=== PATIENT | female | born 1955 | race Caucasian/White ===

== ENCOUNTER 2020-02-19 10:11 | Outpatient (CLI) | payer OTHER, SELFPAY ==
--- NOTE | ~2020-02-19 | MM_ITS ---
EXAMINATION: MM screening alley BI w alfonso HISTORY: Screening mammogram TECHNIQUE: Craniocaudal and mediolateral oblique 3-D tomosynthesis images were obtained and synthetic 2-D images were generated. CAD analysis was submitted and interpreted. COMPARISON: 02/13/2019 bilateral digital screening mammogram 12/05/2017 diagnostic right digital mammogram 11/23/2017, 11/07/2016 bilateral digital screening mammogram examinations BREAST PARENCHYMAL COMPOSITION: There are scattered areas of fibroglandular density. FINDINGS: There is no evidence of suspicious mass, calcification, or architectural distortion to sugg est malignancy in either breast. There has been no suspicious interval change. IMPRESSION: 1. No mammographic evidence of malignancy. 2. Recommend routine screening mammography in one year. BI-RADS Category 1: Negative Reviewed, dictated and finalized at location A.
== END 2020-02-19 10:12 | disposition home or self-care (01) ==
PROVIDERS: PCP Obstetrics & Gynecology; Visit Provider Obstetrics & Gynecology
DX: Z12.31 Encounter for screening mammogram for malignant neoplasm of breast (principal)
CPT/HCPCS: 77063; 77067

== ENCOUNTER 2021-06-23 10:02 | Outpatient (CLI) | payer OTHER, SELFPAY ==
--- NOTE | ~2021-06-23 | MM_ITS ---
EXAMINATION: MM screening alley BI w alfonso HISTORY: Screening mammogram TECHNIQUE: Craniocaudal and mediolateral oblique 3-D tomosynthesis images were obtained and synthetic 2-D images were generated. CAD analysis was submitted and interpreted. COMPARISON: 02/19/2020, 02/13/2019 bilateral digital screening mammogram examinations. BREAST PARENCHYMAL COMPOSITION: There are scattered areas of fibroglandular density. FINDINGS: Asymmetry is noted in the posterior upper and posterior lower left breast on MLO view and in the post erior outer left breast on craniocaudal view. Left diagnostic mammogram and left breast ultrasound ex amination are recommended. No suspicious mass or architectural distortion, malignant calcification, skin thickening or retractio n of the breasts is noted otherwise. No other suspicious change. IMPRESSION: 1. Left mammographic asymmetries 2. Diagnostic left mammogram and left breast ultrasound examination are recommended BI-RADS Category 0: Incomplete: Needs additional imaging evaluation. Reviewed, dictated and finalized at location A. IMPRESSION: 1. Left mammographic asymmetries 2. Diagnostic left mammogram and left breast ultrasound examination are recomme nded BI-RADS Category 0: Incomplete: Needs additional imaging evaluation.
== END 2021-06-23 10:03 | disposition home or self-care (01) ==
LOC: ANHIMG 10:04
PROVIDERS: PCP Family Medicine; Visit Provider Obstetrics & Gynecology
DX: Z12.31 Encounter for screening mammogram for malignant neoplasm of breast (principal); R92.8 Other abnormal and inconclusive findings on diagnostic imaging of breast
CPT/HCPCS: 77063; 77067

== ENCOUNTER 2021-08-24 02:23 | Day surgery (SDC) | payer OTHER, SELFPAY ==
[2021-08-13 11:15] VITALS: BMI 30.6
[2021-08-24 07:44] VITALS: BP 146/86; PULSE 89; RESP 17; TEMP 36.9; O2SAT 97; BMI 30.9
[2021-08-24] MEDS: LACTATED RINGERS 1,000 ML 150 ML IV CONT (07:46)
--- NOTE | 2021-08-24 08:26 | P.CONGI_ITS ---
Assessment and Plan Assessment and plan (1) Encounter for screening colonoscopy: Code(s): Z12.11 - Encounter for screening for malignant neoplasm of colon Status: Acute Assessment and Plan: Patient presents for screening colonoscopy. Further recommendations will be given after endoscopy. It has been 10 years since last screening exam was unremarkable. GI Consult Note Consult date/time: 08/24/21 08:26 HPI: Essence Sommers is a 66 year old female Presents for screening colonosc opy. Patient reports that her current weight appetite bowel movements are normal. She denies abdominal pain. She has had no bleeding. Family history is noncontributory. Review of Systems Review of Systems: All systems reviewed & are unremarkable except as noted in HPI and below PMFSH Past Medical History Medical History Dyslipidemia Essential (primary) hypertension GERD without esophagitis Psoriasis Rosacea Vitamin D deficiency Surgical History Surgical History History of tubal ligation (~1994) [place] teeth extracted (~1981) Family History Family History Other Family history of lung cancer Social History Social History Smoking status: Never smoker Second hand tobacco smoke exposure: No Smoking end date: 11/27/84 Alcohol intake: current Alcohol use details: consumes 3 beers or glasses of wine occasionally Substance use: never Substance use type: does not use Living arrangements: with family Gender identity (if verbalized by the patient): Female Spiritual care concerns: No Meds Home Medications and Allergies Home Medications Medication Instructions Recorded Confirmed Type cholecalciferol (vitamin D3) 50 50 mcg PO DAILY 06/02/20 08/24/21 History mcg (2,000 unit) capsule xvurdtrrzarr-msjctwib-xjndcos-folic 1 tablet PO DAILY 06/02/20 08/24/21 History acid 400 mcg-vit K1 20 mcg tablet omeprazole magnesium 20 mg 20 mg PO DAILY 06/02/20 08/24/21 History tablet,delayed release hydrochlorothiazide 25 mg tablet 25 mg PO DAILY #90 tablet 06/10/21 08/24/21 Rx simvastatin 40 mg tablet 40 mg PO QHS #90 tablet 06/10/21 08/24/21 Rx Allergies Allergy/AdvReac Type Severity Reaction Status Date / Time No Known Allergies Verified 08/24/21 07:43 Vital Signs Vital Signs - 24 hr 08/24/21 07:44 Temperature 98.5 F Pulse Rate 89 Respiratory Rate 17 Blood Pressure 146/86 H Pulse Oximetry 97 Exam Narrative: Physical exam reveals patient to be alert. Vital signs stable. HEENT exam is unremarkable. Patient is anicteric. Lungs are clear to auscultation and percussion. Heart is without murmur or extra sounds. Abdominal exam bowel sounds are present soft nontender with no organomegaly. Digital external rectal exam is normal.
--- NOTE | 2021-08-24 08:38 | P.PNAN_ITS ---
Anes - Initial Pre Proc Eval Procedure: Operation Date: 08/24/21 09:00 Proposed Procedures p Screening Colonoscopy - Jefry Pro MD Date/Time: 08/24/21 08:38 Surgeon: Jefry Pro MD Pre Op Diagnosis: neoplasm screening Patient Data Age: 66 Gender: F Height: 1.68 m Weight: 86.8 kg Last Vital Signs Temp 98.5 F 08/24/21 07:44 Pulse 89 08/24/21 07:44 Resp 17 08/24/21 07:44 BP 146/86 H 08/24/21 07:44 Pulse Ox 97 08/24/21 07:44 Allergies Allergy/AdvReac Type Severity Reaction Status Date / Time No Known Allergies Verified 08/24/21 07:43 Home Medications Medication Instructions Recorded Confirmed Type cholecalciferol (vitamin D3) 50 50 mcg PO DAILY 06/02/20 08/24/21 History mcg (2,000 unit) capsule ximdcmiloxjg-noambeon-yrbldne-folic 1 tablet PO DAILY 06/02/20 08/24/21 History acid 400 mcg-vit K1 20 mcg tablet omeprazole magnesium 20 mg 20 mg PO DAILY 06/02/20 08/24/21 History tablet,delayed release hydrochlorothiazide 25 mg tablet 25 mg PO DAILY #90 tablet 06/10/21 08/24/21 Rx simvastatin 40 mg tablet 40 mg PO QHS #90 tablet 06/10/21 08/24/21 Rx Patient hx anesthesia problems: none Family hx anesthesia problems: none Results Review: All pre-operative results and documents have been reviewed as part of the pre-operative evaluation. [facility] Past Medical History Medical History Dyslipidemia Essential (primary) hypertension GERD without esophagitis Psoriasis Rosacea Vitamin D deficiency Surgical History Surgical History History of tubal ligation (~1994) [place] teeth extracted (~1981) Family History Family History Other Family history of lung cancer Social History Social History Smoking status: Never smoker Second hand tobacco smoke exposure: No Smoking end date: 11/27/84 Alcohol intake: current Alcohol use details: consumes 3 beers or glasses of wine occasionally Substance use: never Substance use type: does not use Living arrangements: with family Gender identity (if verbalized by the patient): Female Spiritual care concerns: No Anes - Eval Final PreProcedure Day of Procedure 08/24/21 08:38 Patient weight: obese Heart: regular rate and rhythm Lungs: clear to auscultation Airway: Mallampati scale class II Neurological: alert and oriented Last oral intake: >/= 8 hours ASA classification: III Emergent: no Anesthetic plan: proceed Anesthesia type and monitoring: general GIVS and standard monitoring Results Review: All pre-operative results and documents have been reviewed as part of the pre-operative evaluation. Informed Consent: The patient's anesthetic plan and its attendant risks and benefits were discussed with the patient/family/POA. Questions were solicited and answers provided to the satisfaction of the patient/family/POA.
[2021-08-24 09:32] VITALS: BP 121/98; PULSE 68; RESP 16; O2SAT 98
[2021-08-24 09:42] VITALS: BP 113/66; PULSE 70; RESP 16; O2SAT 99
[2021-08-24 09:52] VITALS: BP 117/67; PULSE 71; RESP 18; O2SAT 98
== END 2021-08-24 10:03 | disposition home or self-care (01) ==
PROVIDERS: PCP Family Medicine; Visit Provider Internal Medicine Gastroenterology
PROC: 0DJD8ZZ Inspection of Lower Intestinal Tract, Via Natural or Artificial Opening Endoscopic (ICD-10-PCS; CPT 45378; principal; 2021-08-24 09:00)
DX: Z12.11 Encounter for screening for malignant neoplasm of colon (principal); K64.8 Other hemorrhoids; E78.5 Hyperlipidemia, unspecified; I10 Essential (primary) hypertension; K21.9 Gastro-esophageal reflux disease without esophagitis; L40.9 Psoriasis, unspecified; L71.9 Rosacea, unspecified; E55.9 Vitamin D deficiency, unspecified; E66.9 Obesity, unspecified; Z68.30 Body mass index [BMI] 30.0-30.9, adult
CPT/HCPCS: 45378; J2001; J2704; J7120

== ENCOUNTER 2021-08-30 12:49 | Outpatient (CLI) | payer OTHER, SELFPAY ==
--- NOTE | ~2021-08-30 | MMUS_ITS ---
EXAMINATION: MM diagnostic alley LT w alfonso, US breast LT limited HISTORY: Left breast asymmetries on screening mammogram TECHNIQUE: Additional 3-D tomosynthesis images of the left breast were performed and synthetic 2-D im ages were generated. CAD analysis was submitted and interpreted. High resolution limited left breast ultrasound was performed. COMPARISON: 06/23/2021, 02/19/2020, 02/13/2019 BREAST PARENCHYMAL COMPOSITION: There are scattered areas of fibroglandular density. FINDINGS: MAMMOGRAPHIC FINDINGS: There is a return to baseline fibroglandular appearance with spot compression in the left breast in t he area questioned on screening mammogram. In addition, there appear to be benign lymph nodes in the far upper outer quadrant breast. ULTRASOUND: There is a 6 mm x 4 mm oval, circumscribed, parallel, isoechoic mass with no internal vascularity at the 2:00 location 4 cm from the nipple. IMPRESSION: 1. Probably benign left breast mass. 2. Recommend 6 month follow-up left diagnostic mammogram and ultrasound. BI-RADS category 3, probably benign findings. Reviewed, dictated and finalized at location A. IMPRESSION: 1. Probably benign left breast mass. 2. Recommend 6 month follow-up left diagnostic mammogram and ultrasound. BI-RADS category 3, probably benign findings.
== END 2021-08-30 12:50 | disposition home or self-care (01) ==
LOC: ANHIMG 12:51
PROVIDERS: PCP Family Medicine; Visit Provider Obstetrics & Gynecology
DX: R92.8 Other abnormal and inconclusive findings on diagnostic imaging of breast (principal)
CPT/HCPCS: 76642; 77061; 77065; G0279

== ENCOUNTER 2022-03-22 11:58 | Outpatient (CLI) | payer OTHER, SELFPAY ==
--- NOTE | ~2022-03-22 | MMUS_ITS ---
EXAMINATION: MM diagnostic alley LT w alfonso, US breast LT limited HISTORY: Follow-up left breast mass TECHNIQUE: Additional 3-D tomosynthesis images of the left breast were performed and synthetic 2-D im ages were generated. CAD analysis was submitted and interpreted. High resolution Limited left breast ultrasound was performed. COMPARISON: Comparison to multiple prior studies sequentially, with oldest reviewed study dated 10/28. BREAST PARENCHYMAL COMPOSITION: Breast composed of scattered areas of fibroglandular density FINDINGS: MAMMOGRAPHIC FINDINGS: The left breast is stable without evidence for new mass, calcification or architectural distortion to suggest malignancy. ULTRASOUND: Limited left breast ultrasound: At 2:00, 4 cm from the nipple, there is an oval hypoechoic mass witho ut internal vascularity or posterior shadowing measuring 6 mm greatest dimension. IMPRESSION: 1. Stable likely benign left breast mass at 2:00, 4 cm from the nipple. 2. Recommend 6 month follow-up Limited left breast ultrasound BI-RADS category 3, probably benign findings. Reviewed, dictated and finalized at location A. IMPRESSION: 1. Stable likely benign left breast mass at 2:00, 4 cm from the nipple. 2. Recommend 6 month follow-up Limited left breast ultrasound BI-RADS category 3, probably benign findings.
== END 2022-03-22 11:59 | disposition home or self-care (01) ==
PROVIDERS: PCP Family Medicine; Visit Provider Obstetrics & Gynecology
DX: R92.8 Other abnormal and inconclusive findings on diagnostic imaging of breast (principal)
CPT/HCPCS: 76642; 77061; 77065; G0279

== ENCOUNTER 2022-06-14 11:20 | Outpatient (CLI) | payer MEDICARE, SELFPAY ==
[2022-06-14 18:36] LABS: Basophils Percent Auto 0.3 % (0.2-1.2); Eosinophils Percent Auto 0.2 % (0-4.4); Hematocrit 43.6 % (37.0-47.0); Hemoglobin 13.7 g/dL (12.0-15.0); Immature Granulocyte Absolute 0.11 K/mm3 (0.00-0.031); Immature Granulocyte Percent A 0.7 % (0-0.5); Lymphocytes Absolute Auto 2.79 K/mm3 (0.9-3.2); Mean Corpuscular HGB Conc 31.4 g/dl (32-36); Mean Corpuscular Hemoglobin 29.4 pg (26-34); Mean Corpuscular Volume 93.6 fl (80-100); Mean Platelet Volume 10.6 fl (7.4-10.4); Monocytes Absolute Auto 0.7 K/mm3 (0.1-0.6); Monocytes Percent Auto 4.6 % (2.6-8.5); Neutrophils Absolute Auto 11.1 K/mm3 (1.3-6.7); Neutrophils Percent Auto 75.2 % (45.5-73.1); Platelet Count Result 436 k/mm3 (150-375); Red Blood Count 4.66 M/mm3 (4.2-5.4); Red Cell Distribution Width 13.2 % (11.5-14.5); White Blood Count 14.7 K/mm3 (4.5-10.0)
[2022-06-14 18:42] LABS: Alanine Aminotransferase 28 U/L (6-35); Albumin Level 4.7 g/dL (3.5-5.1); Alkaline Phosphatase 67 U/L (38-126); Anion Gap 9 mmol/L (8-16); Aspartate Amino Transferase 30 U/L (14-36); Bilirubin,Total 0.9 mg/dL (0.2-1.3); Blood Urea Nitrogen 27 mg/dL (7-17); Calcium 9.8 mg/dL (8.4-10.2); Carbon Dioxide 31 mmol/L (22-30); Chloride 97 mmol/L (98-107); Cholesterol 196 mg/dL (0-200); Estimated Glomerular Filt Rate > 60; Glucose 97 mg/dL (65-110); HDL Direct 55 mg/dL; Potassium 3.1 mmol/L (3.4-5.0); Sodium 137 mmol/L (137-145); Triglycerides 200 mg/dL (<150)
[2022-06-14 18:53] LABS: LDL Cholesterol Direct 75 mg/dL
[2022-06-14 20:17] LABS: Vitamin D 25 Hydroxy 48.9 ng/mL
== END 2022-06-14 11:21 | disposition home or self-care (01) ==
LOC: ANHGOSHLAB 11:27
PROVIDERS: PCP Family Medicine; Visit Provider Family Medicine
DX: E78.5 Hyperlipidemia, unspecified (principal); Z13.29 Encounter for screening for other suspected endocrine disorder; E55.9 Vitamin D deficiency, unspecified; I10 Essential (primary) hypertension
CPT/HCPCS: 36415; 80053; 80061; 82306; 84443; 85025

== ENCOUNTER 2022-07-06 08:25 | Outpatient (CLI) | payer MEDICARE, SELFPAY ==
[2022-07-06 19:20] LABS: Basophils Absolute Auto 0.1 K/mm3 (0.0-0.1); Basophils Percent Auto 0.6 % (0.2-1.2); Eosinophils Absolute Auto 0.1 K/mm3 (0-0.3); Eosinophils Percent Auto 1.3 % (0-4.4); Hematocrit 40.7 % (37.0-47.0); Hemoglobin 12.9 g/dL (12.0-15.0); Immature Granulocyte Absolute 0.02 K/mm3 (0.00-0.031); Immature Granulocyte Percent A 0.2 % (0-0.5); Lymphocytes Absolute Auto 3.55 K/mm3 (0.9-3.2); Lymphocytes Percent Auto 40.4 % (18.3-44.2); Mean Corpuscular HGB Conc 31.7 g/dl (32-36); Mean Corpuscular Hemoglobin 29.8 pg (26-34); Mean Platelet Volume 10.6 fl (7.4-10.4); Monocytes Absolute Auto 0.4 K/mm3 (0.1-0.6); Monocytes Percent Auto 4.9 % (2.6-8.5); Neutrophils Absolute Auto 4.6 K/mm3 (1.3-6.7); Neutrophils Percent Auto 52.6 % (45.5-73.1); Platelet Count Result 342 k/mm3 (150-375); Red Blood Count 4.33 M/mm3 (4.2-5.4); Red Cell Distribution Width 13.1 % (11.5-14.5); White Blood Count 8.8 K/mm3 (4.5-10.0)
[2022-07-06 20:18] LABS: Alanine Aminotransferase 29 U/L (6-35); Albumin Level 4.3 g/dL (3.5-5.1); Alkaline Phosphatase 57 U/L (38-126); Anion Gap 7 mmol/L (8-16); Aspartate Amino Transferase 30 U/L (14-36); Bilirubin,Total 0.7 mg/dL (0.2-1.3); Blood Urea Nitrogen 24 mg/dL (7-17); Calcium 9.4 mg/dL (8.4-10.2); Carbon Dioxide 33 mmol/L (22-30); Chloride 96 mmol/L (98-107); Estimated Glomerular Filt Rate > 60; Glucose 84 mg/dL (65-110); Potassium 3.4 mmol/L (3.4-5.0); Sodium 136 mmol/L (137-145)
== END 2022-07-06 08:26 | disposition home or self-care (01) ==
PROVIDERS: PCP Family Medicine; Visit Provider Family Medicine
DX: E87.6 Hypokalemia (principal); D72.829 Elevated white blood cell count, unspecified; I10 Essential (primary) hypertension
CPT/HCPCS: 36415; 80053; 85025

== ENCOUNTER 2022-12-14 11:02 | Outpatient (CLI) | payer MEDICARE, SELFPAY ==
[2022-12-14 20:12] LABS: Alanine Aminotransferase 25 U/L (6-35); Albumin Level 4.3 g/dL (3.5-5.1); Alkaline Phosphatase 67 U/L (38-126); Anion Gap 7 mmol/L (8-16); Aspartate Amino Transferase 28 U/L (14-36); Bilirubin,Total 0.7 mg/dL (0.2-1.3); Blood Urea Nitrogen 33 mg/dL (7-17); Calcium 9.2 mg/dL (8.4-10.2); Carbon Dioxide 31 mmol/L (22-30); Chloride 103 mmol/L (98-107); Estimated Glomerular Filt Rate > 60; Glucose 96 mg/dL (65-110); Potassium 4.2 mmol/L (3.4-5.0); Sodium 141 mmol/L (137-145)
== END 2022-12-14 11:03 | disposition home or self-care (01) ==
LOC: ANHGOSHLAB 11:04
PROVIDERS: PCP Family Medicine; Visit Provider Family Medicine
DX: E87.6 Hypokalemia (principal); I10 Essential (primary) hypertension; N63.20 Unspecified lump in the left breast, unspecified quadrant
CPT/HCPCS: 36415; 80053

== ENCOUNTER 2022-12-30 10:13 | Outpatient (CLI) | payer MEDICARE, SELFPAY ==
--- NOTE | ~2022-12-30 | MM_ITS ---
EXAMINATION: MM screening alley BI w alfonso HISTORY: Screening TECHNIQUE: Craniocaudal and mediolateral oblique 3-D tomosynthesis images were obtained and synthetic 2-D images were generated. CAD analysis was submitted and interpreted. COMPARISON: Comparison to multiple prior studies sequentially, with oldest reviewed study dated 07/2018. BREAST PARENCHYMAL COMPOSITION: There are scattered areas of fibroglandular density. FINDINGS: There is no evidence of suspicious mass, calcification, or architectural distortion to sugg est malignancy in either breast. There has been no suspicious interval change. IMPRESSION: 1. No mammographic evidence of malignancy. 2. Recommend routine screening mammography in one year. BI-RADS Category 1: Negative Reviewed, dictated and finalized at location A. 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
== END 2022-12-30 10:14 | disposition home or self-care (01) ==
LOC: ANHIMG 10:17
PROVIDERS: PCP Family Medicine; Visit Provider Obstetrics & Gynecology
DX: Z12.31 Encounter for screening mammogram for malignant neoplasm of breast (principal)
CPT/HCPCS: 77063; 77067

== ENCOUNTER 2023-05-24 12:49 | Outpatient (CLI) | payer MEDICARE, SELFPAY ==
--- NOTE | ~2023-05-24 | XR_ITS ---
Left Knee Technique: AP, lateral, and sunrise views were obtained. Clinical History: Pain Findings: No fracture or dislocation is seen. Osseous alignment is anatomic. Mild tricompartmental de generative spurring noted. Small to moderate joint effusion is seen. Impression: Mild tricompartmental osteoarthritis. Small to moderate joint effusion. Reviewed, dictated and finalized at location . Impression: Mild tricompartmental osteoarthritis. Small to moderate joint effusion.
--- NOTE | ~2023-05-24 | XR_ITS ---
Right Knee Technique: AP, lateral, and sunrise views were obtained. Clinical History: Pain Findings: No fracture or dislocation is seen. There is moderate medial compartment degenerative narro wing with spurring and medial compartment narrowing. There is mild degenerative change of the lateral compartment. There is mild to moderate degenerative change of the patellofemoral compartment.. Soft tissues are unremarkable. No joint effusion is seen. Impression: Tricompartment osteoarthritis, as detailed above, worst in the medial compartment. Reviewed, dictated and finalized at location M. Impression: Tricompartment osteoarthritis, as detailed above, worst in the medial compartme nt.
== END 2023-05-24 12:50 | disposition home or self-care (01) ==
LOC: CHSIMG 12:55
PROVIDERS: PCP Family Medicine
DX: M25.569 Pain in unspecified knee (principal); M17.0 Bilateral primary osteoarthritis of knee; M25.462 Effusion, left knee
CPT/HCPCS: 73564

== ENCOUNTER 2023-06-15 09:50 | Outpatient (CLI) | payer MEDICARE, SELFPAY ==
[2023-06-15 13:24] LABS: Basophils Absolute Auto 0.1 K/mm3 (0.0-0.1); Basophils Percent Auto 0.7 % (0.2-1.2); Eosinophils Absolute Auto 0.1 K/mm3 (0-0.3); Eosinophils Percent Auto 1.3 % (0-4.4); Hematocrit 40.6 % (37.0-47.0); Hemoglobin 12.8 g/dL (12.0-15.0); Immature Granulocyte Absolute 0.02 K/mm3 (0.00-0.031); Immature Granulocyte Percent A 0.3 % (0-0.5); Lymphocytes Absolute Auto 2.57 K/mm3 (0.9-3.2); Lymphocytes Percent Auto 37.7 % (18.3-44.2); Mean Corpuscular HGB Conc 31.5 g/dl (32-36); Mean Corpuscular Hemoglobin 29.2 pg (26-34); Mean Corpuscular Volume 92.5 fl (80-100); Mean Platelet Volume 11.1 fl (7.4-10.4); Monocytes Absolute Auto 0.4 K/mm3 (0.1-0.6); Monocytes Percent Auto 6.2 % (2.6-8.5); Neutrophils Absolute Auto 3.7 K/mm3 (1.3-6.7); Neutrophils Percent Auto 53.8 % (45.5-73.1); Platelet Count Result 346 k/mm3 (150-375); Red Blood Count 4.39 M/mm3 (4.2-5.4); Red Cell Distribution Width 13.3 % (11.5-14.5); White Blood Count 6.8 K/mm3 (4.5-10.0)
[2023-06-15 14:18] LABS: Alanine Aminotransferase 27 U/L (6-35); Albumin Level 4.5 g/dL (3.5-5.1); Alkaline Phosphatase 62 U/L (38-126); Anion Gap 6 mmol/L (8-16); Aspartate Amino Transferase 38 U/L (14-36); Bilirubin,Total 0.8 mg/dL (0.2-1.3); Blood Urea Nitrogen 16 mg/dL (7-17); Calcium 9.3 mg/dL (8.4-10.2); Carbon Dioxide 35 mmol/L (22-30); Chloride 98 mmol/L (98-107); Cholesterol 145 mg/dL (0-200); Estimated Glomerular Filt Rate > 60; Glucose 107 mg/dL (65-110); HDL Direct 42 mg/dL; Potassium 3.8 mmol/L (3.4-5.0); Sodium 139 mmol/L (137-145); Triglycerides 202 mg/dL (<150)
[2023-06-15 14:41] LABS: LDL Cholesterol Direct 52 mg/dL
[2023-06-15 17:54] LABS: Free T4 Free Thyroxine Reflex 1.09 ng/dL (0.78-2.19)
[2023-06-15 19:55] LABS: Total Triiodothyronine (T3) 1.62 NG/ML (0.97-1.69)
== END 2023-06-15 09:51 | disposition home or self-care (01) ==
LOC: ANHGOSHLAB 09:52
PROVIDERS: PCP Family Medicine; Visit Provider Family Medicine
DX: E78.5 Hyperlipidemia, unspecified (principal); I10 Essential (primary) hypertension; E55.9 Vitamin D deficiency, unspecified; E53.8 Deficiency of other specified B group vitamins
CPT/HCPCS: 36415; 80053; 80061; 82306; 82607; 84439; 84443; 84480; 85025

== ENCOUNTER 2023-08-29 13:58 | Outpatient (CLI) | payer MEDICARE, SELFPAY ==
--- NOTE | ~2023-08-29 | DEXA_ITS ---
Bone Density Report Name: MAXIMILIANO MADRID Age: 68 Sex: Female Ethnicity: White Date of : 1955 Indication: postmenopausal; screening for osteoporosis; height loss; Referring Provider: EUGENE VILLAVICENCIO Study: Bone densitometry was performed. Exam Date: August 29, 2023 Accession number: [id number] Bone Density: Region BMD T-score Z-score Classification AP Spine(L1-L4) 1.044 0.0 1.8 Normal Femoral Neck (Left) 0.757 -0.8 0.8 Normal Total Hip (Left) 0.864 -0.6 0.7 Normal Femoral Neck (Right) 0.800 -0.4 1.1 Normal Total Hip (Right) 0.890 -0.4 0.9 Normal Total Hip Mean 0.877 -0.5 0.8 Normal World Health Organization criteria for BMD impression classify patients as: Normal (T-score at or above -1.0), Osteopenia (T-score between -1.0 and -2.5), or Osteoporosis (T-score at or below -2.5). 10-year Fracture Risk: FRAX not reported because: All T-scores for Spine Total, Hip Total, Femoral Neck at or above -1.0 Clinical Information Provided by Patient: Has used the following medications: Vitamin D Patient maximum height was 67 Menopause Age: 52 No regular weight bearing exercise Does not regularly consume dairy products Drinks caffeinated beverages Onset of menses at age 16 Number of children 2 Impression: The patient has normal bone mass. Discussion: BONE DENSITY IS ABOVE THE MINIMUM DESIRABLE LEVEL AT ALL SKELETAL SITES TESTED. This patient?s bone mineral density is above the minimum desirable level (T-score -1.0 or better) at all sites measured. The patient should follow a healthful lifestyle (good nutrition with adequate calcium and vitamin D, and appropriate weight-bearing exercise). Follow-Up: Consider repeating this study in 5 years or sooner if there is some new clinical indication. Reported by: [facility] on 08/29/2023 2:22:00 PM. Reviewed, dictated and finalized at location ALoretta ORTIZ
== END 2023-08-29 13:59 | disposition home or self-care (01) ==
PROVIDERS: PCP Family Medicine; Visit Provider Family Medicine
DX: Z78.0 Asymptomatic menopausal state (principal)
CPT/HCPCS: 77080

== ENCOUNTER 2023-12-21 09:20 | Outpatient (CLI) | payer MEDICARE, SELFPAY ==
[2023-12-21 14:09] LABS: Alanine Aminotransferase 25 U/L (6-35); Albumin Level 4.4 g/dL (3.5-5.1); Alkaline Phosphatase 67 U/L (38-126); Anion Gap 8 mmol/L (8-16); Aspartate Amino Transferase 40 U/L (14-36); Blood Urea Nitrogen 21 mg/dL (7-17); Calcium 9.3 mg/dL (8.4-10.2); Carbon Dioxide 33 mmol/L (22-30); Chloride 100 mmol/L (98-107); Estimated Glomerular Filt Rate > 60; Glucose 94 mg/dL (65-110); Potassium 3.6 mmol/L (3.4-5.0); Sodium 141 mmol/L (137-145)
[2023-12-21 18:58] LABS: Total Triiodothyronine (T3) 1.37 NG/ML (0.97-1.69)
== END 2023-12-21 09:21 | disposition home or self-care (01) ==
LOC: ANHGOSHLAB 09:22
PROVIDERS: PCP Family Medicine; Visit Provider Family Medicine
DX: R79.89 Other specified abnormal findings of blood chemistry (principal); I10 Essential (primary) hypertension
CPT/HCPCS: 36415; 80053; 84439; 84443; 84480

== ENCOUNTER 2024-02-20 07:58 | Outpatient (CLI) | payer MEDICARE, SELFPAY ==
--- NOTE | ~2024-02-20 | MM_ITS ---
EXAMINATION: MM screening alley BI w alfonso HISTORY: Screening mammogram TECHNIQUE: Craniocaudal and mediolateral oblique 3-D tomosynthesis images were obtained and synthetic 2-D images were generated. CAD analysis was submitted and interpreted. COMPARISON: December 30, 2022 bilateral screening mammogram March 22, 2022 diagnostic left mammogram and limited left breast ultrasound August 30, 2021 diagnostic left mammogram and limited left breast ultrasound June 23, 2021 bilateral screening mammogram BREAST PARENCHYMAL COMPOSITION: There are scattered areas of fibroglandular density. FINDINGS: There is no evidence of suspicious mass, calcification, or architectural distortion to sugg est malignancy in either breast. There has been no suspicious interval change. IMPRESSION: 1. No mammographic evidence of malignancy. 2. Recommend routine screening mammography in one year. BI-RADS Category 1: Negative Reviewed, dictated and finalized at location A.
== END 2024-02-20 07:59 | disposition home or self-care (01) ==
PROVIDERS: PCP Family Medicine; Visit Provider Obstetrics & Gynecology
DX: Z12.31 Encounter for screening mammogram for malignant neoplasm of breast (principal)
CPT/HCPCS: 77063; 77067

== ENCOUNTER 2024-03-13 11:18 | Outpatient (CLI) | payer MEDICARE, SELFPAY | END 2024-03-13 11:19 | disposition home or self-care (01) | LOC: ANHGOSHLAB 11:21 | PROVIDERS: PCP Family Medicine; Visit Provider Family Medicine | DX: N39.0 Urinary tract infection, site not specified (principal) | CPT/HCPCS: 87086; 87088 ==

== ENCOUNTER 2024-08-27 09:23 | Outpatient (CLI) | payer MEDICARE, SELFPAY ==
[2024-08-27 14:10] LABS: Basophils Absolute Auto 0.1 K/mm3 (0.0-0.1); Basophils Percent Auto 0.9 % (0.2-1.2); Eosinophils Absolute Auto 0.1 K/mm3 (0-0.3); Eosinophils Percent Auto 2.3 % (0-4.4); Hematocrit 41.3 % (37.0-47.0); Hemoglobin 13.2 g/dL (12.0-15.0); Immature Granulocyte Absolute 0.02 K/mm3 (0.00-0.031); Immature Granulocyte Percent A 0.3 % (0-0.5); Lymphocytes Percent Auto 34.8 % (18.3-44.2); Mean Corpuscular Hemoglobin 30.2 pg (26-34); Mean Corpuscular Volume 94.5 fl (80-100); Mean Platelet Volume 12.4 fl (7.4-10.4); Monocytes Absolute Auto 0.3 K/mm3 (0.1-0.6); Monocytes Percent Auto 5.4 % (2.6-8.5); Neutrophils Absolute Auto 3.2 K/mm3 (1.3-6.7); Neutrophils Percent Auto 56.3 % (45.5-73.1); Platelet Count Result 351 k/mm3 (150-375); Red Blood Count 4.37 M/mm3 (4.2-5.4); Red Cell Distribution Width 13.4 % (11.5-14.5); White Blood Count 5.7 K/mm3 (4.5-10.0)
[2024-08-27 14:35] LABS: LDL Cholesterol Direct 54 mg/dL
[2024-08-27 14:50] LABS: Vitamin D 25 Hydroxy 43.4 ng/mL
[2024-08-27 15:04] LABS: Alanine Aminotransferase 24 U/L (6-35); Albumin Level 4.5 g/dL (3.5-5.1); Alkaline Phosphatase 60 U/L (38-126); Anion Gap 9 mmol/L (4-12); Aspartate Amino Transferase 43 U/L (14-36); Bilirubin,Total 0.8 mg/dL (0.2-1.3); Blood Urea Nitrogen 17 mg/dL (7-17); Calcium 9.4 mg/dL (8.4-10.2); Carbon Dioxide 31 mmol/L (22-30); Chloride 99 mmol/L (98-107); Cholesterol 158 mg/dL (0-200); Estimated Glomerular Filt Rate > 60; Glucose 102 mg/dL (65-110); HDL Direct 47 mg/dL; Potassium 4.2 mmol/L (3.4-5.0); Sodium 139 mmol/L (137-145); Triglycerides 226 mg/dL (<150)
[2024-08-27 15:39] LABS: Hemoglobin A1C 5.4 % (<5.7)
== END 2024-08-27 09:24 | disposition home or self-care (01) ==
PROVIDERS: PCP Family Medicine; Visit Provider Family Medicine
DX: E78.5 Hyperlipidemia, unspecified (principal); E53.8 Deficiency of other specified B group vitamins; E55.9 Vitamin D deficiency, unspecified; I10 Essential (primary) hypertension; R73.9 Hyperglycemia, unspecified
CPT/HCPCS: 36415; 80053; 80061; 82306; 82607; 83036; 84439; 84443; 84480; 85025

== ENCOUNTER 2024-10-08 13:51 | Outpatient (CLI) | payer MEDICARE, SELFPAY ==
--- NOTE | 2024-10-08 14:52 | ECG_ITS ---
Test Date: 2024-10-08 15:06:20 Measurements Intervals [place] Rate: 63 P: 45 FL: 139 QRS: 4 QRSD: 104 T: 12 QT: 411 QTc: 423 Interpretive Statements SINUS RHYTHM WITH SECOND DEGREE AV BLOCK, TYPE II BORDERLINE R WAVE PROGRESSION, ANTERIOR LEADS BASELINE ARTIFACT- I, II, III, AVR, AVL, AVF, V1-V6 ABNORMAL ECG No previous ECG available for comparison Electronically Signed On 10-08-2024 15:42:21 [employer] MUD [employer]OLDER by Sanjay Barrios D.O.
[2024-10-08 15:25] LABS: Basophils Absolute Auto 0.1 K/mm3 (0.0-0.1); Basophils Percent Auto 0.6 % (0.2-1.2); Eosinophils Absolute Auto 0.1 K/mm3 (0-0.3); Eosinophils Percent Auto 1.1 % (0-4.4); Hematocrit 39.7 % (37.0-47.0); Immature Granulocyte Absolute 0.02 K/mm3 (0.00-0.031); Immature Granulocyte Percent A 0.2 % (0-0.5); Lymphocytes Absolute Auto 3.05 K/mm3 (0.9-3.2); Lymphocytes Percent Auto 37.3 % (18.3-44.2); Mean Corpuscular HGB Conc 32.7 g/dl (32-36); Mean Corpuscular Hemoglobin 29.9 pg (26-34); Mean Corpuscular Volume 91.3 fl (80-100); Mean Platelet Volume 10.2 fl (7.4-10.4); Monocytes Absolute Auto 0.5 K/mm3 (0.1-0.6); Monocytes Percent Auto 6.1 % (2.6-8.5); Neutrophils Absolute Auto 4.5 K/mm3 (1.3-6.7); Neutrophils Percent Auto 54.7 % (45.5-73.1); Platelet Count Result 334 k/mm3 (150-375); Red Blood Count 4.35 M/mm3 (4.2-5.4); Red Cell Distribution Width 12.8 % (11.5-14.5); White Blood Count 8.2 K/mm3 (4.5-10.0)
[2024-10-08 16:01] LABS: Albumin Level 4.6 g/dL (3.5-5.1); Anion Gap 8 mmol/L (4-12); Blood Urea Nitrogen 20 mg/dL (7-17); Calcium 9.5 mg/dL (8.4-10.2); Carbon Dioxide 31 mmol/L (22-30); Chloride 98 mmol/L (98-107); Estimated Glomerular Filt Rate > 60; Glucose 110 mg/dL (65-110); Potassium 3.1 mmol/L (3.4-5.0); Sodium 137 mmol/L (137-145)
[2024-10-08 16:04] LABS: Urine Cotinine NEGATIVE
== END 2024-10-08 13:52 | disposition home or self-care (01) ==
LOC: ANHSURGERY 13:55
PROVIDERS: PCP Family Medicine; Visit Provider Orthopaedic Surgery
DX: Z01.818 Encounter for other preprocedural examination (principal); M17.0 Bilateral primary osteoarthritis of knee; R94.31 Abnormal electrocardiogram [ECG] [EKG]
CPT/HCPCS: 80048; 80307; 82040; 85025; 87081; 93005

== ENCOUNTER 2024-10-22 10:08 | Outpatient (CLI) | payer MEDICARE, SELFPAY ==
[2024-10-22 12:32] LABS: Alanine Aminotransferase 21 U/L (6-35); Albumin Level 4.6 g/dL (3.5-5.1); Alkaline Phosphatase 65 U/L (38-126); Anion Gap 9 mmol/L (4-12); Aspartate Amino Transferase 36 U/L (14-36); Bilirubin,Total 0.8 mg/dL (0.2-1.3); Blood Urea Nitrogen 18 mg/dL (7-17); Calcium 9.5 mg/dL (8.4-10.2); Carbon Dioxide 31 mmol/L (22-30); Chloride 100 mmol/L (98-107); Estimated Glomerular Filt Rate > 60; Glucose 106 mg/dL (65-110); Potassium 3.7 mmol/L (3.4-5.0); Sodium 140 mmol/L (137-145)
== END 2024-10-22 10:09 | disposition home or self-care (01) ==
LOC: ANHGOSHLAB 10:10
PROVIDERS: Visit Provider Family Medicine
DX: E87.6 Hypokalemia (principal); I10 Essential (primary) hypertension
CPT/HCPCS: 36415; 80053

== ENCOUNTER 2024-11-22 09:31 | Outpatient (CLI) | payer MEDICARE, SELFPAY ==
--- NOTE | 2024-11-22 09:38 | ECHO_ITS ---
Patient Info Name: Essence Sommers Age: 69 years : 1955 Gender: Female Ht: 66 in Wt: 188 lbs BSA: 2.02 m2 HR: 99 bpm BP: 147 / 85 mmHg Heart Rhythm: Sinus Rhythm Technical Quality: Fair Exam Date: 11/22/2024 9:44 AM Exam Location: Echo Lab Patient Status: Outpatient Admit Date: 11/22/2024 Staff Ordering Physician: Félix Meade MD Financial Examiner: Trenton Wilburn RDCS Attending Provider: Félix Meade MD Exam Type: CA echo doppler color flow Study Info Indications - ESST HTN Complete two-dimensional, color flow and Doppler transthoracic echocardiogram is performed. Summary 1. Complete two-dimensional, color flow and Doppler transthoracic echocardiogram is performed. 2. Mild concentic LVH, LVEF 56%, trace TR, mild pulmonary HTN, mild LAE. Left Ventricular Outflow Tract Name Value Normal LVOT 2D LVOT Diameter 1.9 cm LVOT Doppler LVOT Peak Velocity 100 cm/s LVOT Peak Gradient 4 mmHg LVOT Mean Gradient 3 mmHg LVOT VTI 23 cm LVOT VTI/AV VTI Ratio 0.9 LVOT Stroke Volume 62 ml LVOT CO 5.4 l/min LVOT CI 2.7 l/min/m2 Pulmonic Valve Name Value Normal RVOT Doppler RVOT Peak Gradient 3 mmHg PV Doppler PV Peak Velocity 83 cm/s PV Peak Gradient 3 mmHg Mitral Valve Name Value Normal MV Doppler MV Decel [place] 533 cm/s2 MV PHT 32 ms MV Area (PHT) 6.9 cm2 4.0-5.0 MV Diastolic Function MV E Peak Velocity 59 cm/s MV A Peak Velocity 78 cm/s MV E/A 0.8 MV Decel Time 110 ms MV Annular TDI MV Septal e' Velocity 7.9 cm/s >=8.0 MV E/e' (Septal) 7.4 <=8.0 MV Lateral e' Velocity 10.0 cm/s >=10.0 MV E/e' (Lateral) 5.9 <=8.0 MV e' Average 8.93 MV E/e' (Average) 6.6 Tricuspid Valve Name Value Normal TV Regurgitation Doppler TR Peak Velocity 277 cm/s TR Peak Gradient 29 mmHg Estimated PAP/RSVP RA Pressure 10 mmHg <=5 PA Systolic Pressure 41 mmHg <36 RV Systolic Pressure 41 mmHg <36 TV Annular TDI TV Lateral Gwen s' Velocity 16.6 cm/s 9.5-18.7 Aorta Name Value Normal Ascending Aorta Ao Root Diameter (MM) 3.7 cm Ao Root Diam Index (MM) 1.8 cm/m2 Ao Sinotub [place] Diameter 3.0 cm 2.3-2.9 Aortic Valve Name Value Normal AV Doppler AV Peak Velocity 126 cm/s AV Peak Gradient 6 mmHg AV Mean Gradient 4 mmHg AV VTI 26 cm AV Area (Cont Eq VTI) 2.4 cm2 >=3.0 AV Area (Cont Eq Surya) 2.1 cm2 AV V1/V2 Ratio 0.79 AV Regurgitation 2D LVOT Area 2.7 cm2 Ventricles Name Value Normal LV Dimensions 2D/MM IVS Diastolic Thickness (2D) 1.1 cm 0.6-1.0 LVID Diastole (2D) 3.4 cm 3.8-5.2 LVIW Diastolic Thickness (2D) 1.4 cm 0.6-0.9 LVID Systole (2D) 2.2 cm 2.2-3.5 LVOT Diameter 1.9 cm LV Mass (2D Cubed) 144.04 g 67.00-162.00 LV Mass Index (2D Cubed) 71 g/m2 43-95 Relative Wall Thickness (2D) 0.84 LV Fractional Shortening/Ejection Fraction 2D/MM LV Fractional Shortening (2D) 36 % 27-45 LV EF (2D Teicholz) 67 % 54-74 LV Diastolic Volume (4C MOD) 82 ml LV EF (4C MOD) 47 % LV Diastolic Volume (2C MOD) 54 ml LV EF (2C MOD) 66 % LV Diastolic Volume (BP MOD) 69 ml 46-106 LV Diastolic Volume Index (BP MOD) 34 ml/m2 29-61 LV Systolic Volume (BP MOD) 30 ml 14-42 LV Systolic Volume Index (BP MOD) 15 ml/m2 8-24 LV EF (BP MOD) 56 % 54-74 LV Diastolic Length (4C) 6.5 cm LV Systolic Length (4C) 5.6 cm LV Stroke Volume (4C MOD) 39 ml Atria Name Value Normal LA Dimensions LA Dimension (MM) 3.4 cm 2.7-3.8 LA Volume (4C A-L) 38 ml LA Volume (BP A-L) 45 ml RA Dimensions RA Area (4C) 10.7 cm2 <=18.0 Report Signatures Amended by Meke Vanessa MD on 11/23/2024 08:05
== END 2024-11-22 09:32 | disposition home or self-care (01) ==
LOC: ANHLAB 09:31
PROVIDERS: PCP Family Medicine; Visit Provider Family Medicine
DX: I10 Essential (primary) hypertension (principal)
CPT/HCPCS: 93306

== ENCOUNTER 2024-11-22 10:43 | Outpatient (CLI) | payer MEDICARE, SELFPAY ==
[2024-11-22 12:15] LABS: Anion Gap 3 mmol/L (4-12); Blood Urea Nitrogen 18 mg/dL (7-17); Calcium 9.5 mg/dL (8.4-10.2); Carbon Dioxide 33 mmol/L (22-30); Chloride 102 mmol/L (98-107); Estimated Glomerular Filt Rate > 60; Glucose 101 mg/dL (65-110); Potassium 3.7 mmol/L (3.4-5.0); Sodium 138 mmol/L (137-145)
== END 2024-11-22 10:44 | disposition home or self-care (01) ==
LOC: ANHGOSHLAB 10:45
PROVIDERS: PCP Family Medicine; Visit Provider Family Medicine
DX: E87.6 Hypokalemia (principal)
CPT/HCPCS: 36415; 80048

== ENCOUNTER 2024-12-18 10:26 | Outpatient (CLI) | payer MEDICARE, SELFPAY ==
[2024-12-18 11:12] LABS: Basophils Absolute Auto 0.1 K/mm3 (0.0-0.1); Basophils Percent Auto 0.7 % (0.2-1.2); Eosinophils Absolute Auto 0.1 K/mm3 (0-0.3); Eosinophils Percent Auto 1.3 % (0-4.4); Hemoglobin 13.1 g/dL (12.0-15.0); Immature Granulocyte Absolute 0.02 K/mm3 (0.00-0.031); Immature Granulocyte Percent A 0.3 % (0-0.5); Lymphocytes Absolute Auto 2.37 K/mm3 (0.9-3.2); Lymphocytes Percent Auto 34.8 % (18.3-44.2); Mean Corpuscular HGB Conc 32.8 g/dl (32-36); Mean Corpuscular Volume 91.5 fl (80-100); Mean Platelet Volume 9.7 fl (7.4-10.4); Monocytes Absolute Auto 0.5 K/mm3 (0.1-0.6); Monocytes Percent Auto 6.6 % (2.6-8.5); Neutrophils Absolute Auto 3.8 K/mm3 (1.3-6.7); Neutrophils Percent Auto 56.3 % (45.5-73.1); Platelet Count Result 319 k/mm3 (150-375); Red Blood Count 4.37 M/mm3 (4.2-5.4); Red Cell Distribution Width 13.3 % (11.5-14.5); White Blood Count 6.8 K/mm3 (4.5-10.0)
[2024-12-18 11:16] LABS: Albumin Level 4.5 g/dL (3.5-5.1)
[2024-12-18 11:20] LABS: Urine Cotinine NEGATIVE
[2024-12-18 11:27] LABS: Hemoglobin A1C 5.7 % (<5.7)
--- OUTSIDE RECORDS SUMMARY | 2024-12-19 23:17 | XMS_ITS | Data Portability ---
Author Organization [place] [facility], Main Office Address [address] [place] [address] Care Team Providers Care Chief Of Hospital Medicine Name Role Phone TYE VILLAVICENCIO Primary Care Provider TYE VILLAVICENCIO Referring Provider [phone] Assessment Encounter Date Assessment Date Assessment LastModified by Organization Details LastModified Time 03/08/2023 03/08/2023 HPI: Patient returns. It has been 3 months last cortisone injection both. She has moderately severe osteoarthritis knees. Injections continue to give her good relief. She is opce-lsj-lgtzseb which she feels helps better prescription strength. Physical exam: 67-year-old female alert pleasant. Walks well limp or assistance. She has mild to moderate effusions in both knees. Range of motion is 5-130 degrees bilaterally. Tenderness over medial joint to palpation. ChloraPrep was used skin 20 mg Kenalog and 3 cc of 0.5% was injected into knees. Risk infection discussed. Impression: 67-year-old female has moderately severe medial osteoarthritis in both knees. She continues to get good relief from injections. We will see her back in 3 months repeat injection [email or web address] Not available 03/08/2023 09:16:16 Plan of Treatment Reminders Order Date Submit Date Provider Last Modified By Organization Details Last Modified Time Details Appointments None recorded. Lab None recorded. Referral None recorded. Procedures injection/a spiration joint/bursa (PROC) - in office procedure, administere d by provider 2022 023 [email or web address] In-Office Order, Internal Use Only DO Not Attach Compendium DO Not Attach Compendium, Do Not Delete/merge, [id number] 09:04:57 Surgeries None recorded. Imaging None recorded. Medication Orders Kenalog 10 mg/mL suspension for injection [address] [facility] [place], [address], 3 16:20:26 ropivacaine (PF) 5 mg/mL (0.5 %) injection solution [address] [facility] [address] [place], [address], 3 16:20:26 Patient TargetsNo targets recorded. Patient InstructionsNo instructions recorded. Reason for Referral None Reported. Results Created Date Observation Date Name Description Value Unit Range Abnormal Flag Note LastModifiedBy Organization Detail LastModifiedTime 03/09/20 22 XR, knee No observ ation record ed. [id number] [address], [place], [address], 01/25/2023 08:13:39 Result Notes None recorded. Problems Name Problem SNOMED Code Status Onset Date Resolution Date Notes Provider Name and Address Organization Details Recorded Time Osteoarthr itis 699216790 Active 2021 Not Available [facility] 3 08:08:47 Bilateral osteoarthr itis of knees 8420360676883 07 Active 2022 GIL Calvin, [place] [facility] 3 09:03:34 Problem Notes None recorded. Procedures Surgical History Date Name Laterality Status Provider Name and Address Organization Details Recorded Time 06/23/20 21 Most Recent Mammogram completed Not Available [facility] 01/25/2023 08:05:04 02/06/20 19 Date of Last Pap Smear completed Not Available [facility] 01/25/2023 08:05:04 04/16/20 13 Most Recent Bone Density completed Not Available [facility] 01/25/2023 08:05:04 04/27/20 11 Date of Last Colonoscopy completed Not Available [facility] 01/25/2023 08:05:03 12/26/18 [employer] Surgery completed Not Available [facility] 01/26/20 08:05:05 Tubal Ligation completed Not Available [facility] 01/25/2023 08:05:05 Imaging Results Imaging Date Name Status LastModified by Organiz ation Details LastModified Time 03/09/2022 XR, knee completed [id number] [id number] [place] [address], [place], [address], 01/25/2023 08:13:39 Procedure Notes None recorded. Medical Equipment None Reported. Medications Name Sig Start Date Stop Date Status Note LastModified by Organization Details LastModified Time amoxicillin 500 mg capsule 06/08 completed Not Available Not Available Not Available meloxicam 15 mg tablet Take 1 tablet by mouth once daily 03/08 completed Not Available Not Available Not Available potassium chloride ER 10 mEq tablet,exte nded release TAKE 1 TABLET BY MOUTH ONCE DAILY 03/08 completed Not Available Not Available Not Available sulfamethox azole 800 mg-trimetho prim 160 mg tablet 11/13 completed Not Available Not Available Not Available simvastatin 40 mg tablet TAKE 1 TABLET BY MOUTH ONCE DAILY AT BEDTIME active Not Available Not Available No t Available Kenalog 10 mg/mL suspension for injection in office 2022 active [facility]: 0003- 0494- 20 Not Available Not Available Not Available hydrochloro thiazide 12.5 mg capsule Take 1 capsule every day by oral route. 02/09 completed Not Available Not Available Not Available omeprazole 20 mg capsule,del ayed release TAKE 1 TABLET BY MOUTH ONCE DAILY active Not Available Not Available No t Available hydrochloro thiazide 25 mg tablet TAKE 1 TABLET BY MOUTH ONCE DAILY active Not Available Not Available No t Available lisinopril 10 mg-hydrochl orothiazide 12.5 mg tablet 11/13 completed Not Available Not Available Not Available tobramycin 0.3 %-dexametha sone 0.1 % eye drops,suspe nsion active Not Available Not Available Not Available hydrochloro thiazide 06/08 completed Not Available Not Available Not Available simvastatin 06/08 completed Not Available Not Available Not Available multivitami n 2021 active Not Available Not Available Not Avai lable Prilosec OTC 03/08 completed Not Available Not Available Not Available lidocaine (PF) 10 mg/mL (1 %) injection solution In office injection administe red by the provider 03/09 completed [facility]: 0409- [phone]- [phone] Not Available Not Available Not Available lidocaine (PF) 20 mg/mL (2 %) injection solution In office injection administe red by the provider 06/08 completed Not Available Not Available Not Available lidocaine (PF) 5 mg/mL (0.5 %) injection solution In office injection administe red by the provider 12/07 completed Not Available Not Available Not Available Prilosec 10 mg oral suspension, delayed release Take 2 packets every day by oral route. 06/08 completed Not Available Not Available Not Available ropivacaine (PF) 5 mg/mL (0.5 %) injection solution in office 2022 active Not Available Not Available Not Avai lable Vitamin D2 2021 active Not Available Not Available Not Avai lable potassium chloride ER 20 mEq tablet,exte nded release TAKE 1 TABLET BY MOUTH ONCE DAILY 03/08 completed Not Available Not Available Not Available Vitals Date Recorded Body mass index (BMI) Body height Body weight Provider Name and Address Organization Details Last Updated DateTime 12/07/2022 32.3 kg/m2 162.56 cm 18675.37 g Not Available [facility] 01/25/2023 08:06:36 Date Recorded Body height Provider Name an d Address Organization Details Last Updated DateTime 03/09/2022 166.37 cm Not Available [facility] 3 08:06:35 Date Recorded Body height Provider Name an d Address Organization Details Last Updated DateTime 06/08/2022 166.37 cm Not Available [facility] 3 08:06:35 Date Recorded Body height Provider Name an d Address Organization Details Last Updated DateTime 09/07/2022 166.37 cm Not Available [facility] 3 08:06:35 Date Recorded Body height Provider Name an d Address Organization Details Last Updated DateTime 03/08/2023 162.56 cm Shasha Green, RMA [facility] 03/08/2023 09:02:31 Social History Question Answer Notes LastModified by [employer] Details LastModified Time Tobacco Smoking Status Never Smoker April Keith kehinde, [facility] 03/08/2023 09:01:28 What Is Your Level Of Alcohol Consumption? None [id number] Information not available 01/25/2023 What Is Your Level Of Caffeine Consumption? None [id number] Information not available 01/25/2023 In The 14 Days Before Symptom Onset, Have You Had Close Contact With A Laboratory-confir med COVID-19 While That Case Was Ill? No [email or web address] Information not available 03/08/2023 In The 14 Days Before Symptom Onset, Have You Had Close Contact With A Person Who Is Under Investigation For COVID-19 While That Person Was Ill? No [email or web address] Information not available 03/08/2023 Which Illicit Or Recreational Drugs Have You Used? None [email or web address] Information not available 03/08/2023 Do You Or Have You Ever Used E-cigarettes Or Vape? 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 Occasional [id number] Information not available 01/25/2023 Mental Status None recorded. Family History Relationship Description Onset Age of this Age Resolved Age Notes LastModified by Organization Details LastModified Time Mother Diabetes mellitus [id number] Not available 01/25/2023 08:05:07 Mother Hypertensive disorder [id number] Not available 01/25/2023 08:05:07 Father Malignant tumor of lung Not available 03/08 09:01:28 Father Family history of malignant neoplasm [email or web address] Not available 03/08 09:01:28 Medical History Condition Response SKIN PROBLEMS Y HYPERTENSION Y HIGH CHOLESTEROL / HYPERLIPIDEMIA Y Gynecological History Statement/Question Response Abnormal Pap N Date of Last Colonoscopy 04/27/2011 Most Recent Bone Density 04/16/2013 Date of Last Pap Smear 02/05/2019 Current Control Method Menopause Age at Menarche 15 Most Recent Mammogram 06/23/2021 Obstetrics History GPAL:G 2 P 2 0 0 2 Type Value Full Term 2 Living 2 Total 2 Immunizations Vaccine Type Date Status Note Provider Nam e and Address Organization Details Recorded Time COVID-19, mRNA, LNP-S, PF, 100 mcg/0.5mL dose or 50 mcg/0.25mL dose 01/15/2021 completed Not Available [facility] 3 08:13:17 COVID-19, mRNA, LNP-S, PF, 100 mcg/0.5mL dose or 50 mcg/0.25mL dose 12/17/2020 completed Not Available [facility] 3 08:13:18 Past Encounters Encounter ID Performer Location Encounter Start Date Encounter Closed Date Diagnosis/Indication Diagnosis SNOMED-CT Code Diagnosis ICD10 Code Diagnosis Note [id number] _ALFONSO_Nini IGRATION_ DEFAULT_1 _1 , 03/03/2021 00:00:00 03/03/2021 11:59:44 [id number] [facility] [address] [place] [address] 12/01/2021 00:00:00 12/01/2021 16:18:33 [id number] [facility] [address] [place] [address] 03/09/2022 00:00:00 03/09/2022 09:41:49 [id number] [facility] [address] [place] [address] 06/08/2022 00:00:00 06/08/2022 09:27:51 [id number] [facility] [address] [place] [address] 09/07/2022 00:00:00 09/07/2022 09:30:00 [id number] [facility] [address] [place] [address] 12/07/2022 00:00:00 12/07/2022 09:08:52 [id number] MACI Echols [facility] [address] [place] [address] 03/08/2023 08:59:05 03/08/2023 09:19:32 Bilateral osteoarthritis of knees [id number] M17.0 Health Concerns Section Related Observation LastModified by Organization Detai ls LastModified Time None Recorded Concern Status LastModified by Organization Details LastModified Time None Recorded Advance Directives Directive None Recorded Payers Encounter Date Sequence Insurance Name Policy Number Policy Shelley Covered Member ID Shelley Member ID Guarantor Name 03/08/2023 1 [place]ARE[place] Essence Sommers [id number] Essence Sommers 03/08/2023 2 [facility] (MEDICARE SUPPLEMENT) Essence Sommers [id number] Essence Sommers OBGyn Episode No OBEpisode recorded.
== END 2024-12-18 10:27 | disposition home or self-care (01) ==
PROVIDERS: PCP Family Medicine; Visit Provider Orthopaedic Surgery
DX: M17.0 Bilateral primary osteoarthritis of knee (principal); Z01.818 Encounter for other preprocedural examination
CPT/HCPCS: 80307; 82040; 83036; 85025; 86850; 86900; 86901; 87081

== ENCOUNTER 2024-12-26 01:28 | Day surgery (SDC) | payer MEDICARE, SELFPAY ==
[2024-10-08 14:08] VITALS: BP 145/81; PULSE 79; RESP 16; TEMP 37.1; O2SAT 98; BMI 31.6
--- NOTE | 2024-10-08 14:23 | PC.NURSE ---
Report to the Outpatient Waiting Room, entrance under the green pavilion located off [facility], at time ___6:00AM___ on date ___10/28/24____. Planned Procedure Time: ___7:30AM .? Time changes happen often and if your time is changed the preop area will call you the afternoon before. - You and your visitor will be asked to self-screen and do not enter if you have any COVID symptoms. Please call surgeon if you need to reschedule. - A mask is optional within the hospital at this time. Patients may have clear liquids (water, carbonated beverages, clear teas, apple juice) until 3 hours prior to surgery with a maximum of 20 ounces. - No food from midnight until time of surgery and no smoking.. Take only the following medications with a SIP of water on the morning of surgery: METOPROLOL DO NOT STOP ANY OF YOUR OTHER PRESCRIPTION MEDICATIONS PRIOR TO SURGERY EXCEPT THE FOLLOWING Medications to discontinue per physician ____HOLD ALL VITAMINS/SUPPLEMENTS 3 DAYS PRE-OP PER ANESTHESIA Date to take last dose 10/24/24 Please no make-up, nail maori, hairspray, perfume, deodorant, or body powder the day of surgery.? No jewelry (including any body piercings) or valuables the day of surgery, leave them at home.? Please take a shower or bath the night before, or the morning of, surgery with an antibacterial soap.? Wear comfortable, loose fitting clothing.? - Jewelry must be removed prior to entering the operating room.? Rings and piercings that are not removed may be cut off. - The hospital will not accept responsibility for valuables.? - Please leave all valuables, including medications, at home the day of surgery. If you are going home after surgery, a licensed fleet driver must drive you home.? - NO public transportation without another adult if you receive anesthesia. - We recommend that an adult stay with you for 24 hours following discharge. - We also recommend that you do not drive, make important decision, drink alcoholic beverages, or take any drugs that were not prescribed by your health care provider for at least 24 hours after your discharge time. Follow any additional instructions given to you from your surgeon. Telephone instructions given to ____PATIENT and asked if any additional questions and then verbalized understanding. Patient advised to call surgeon office or pre surgery nurse liaison [phone] if any additional questions.
--- NOTE | 2024-10-23 16:23 | PM.IMHP ---
H&P: HPI History of Present Illness Date/Time: 10/23/24 16:23 Chief Complaint: 69-year-old female patient of Dr. Meade who presents today for left total knee arthroplasty with cortisone injection in the right. Patient has severe zgqg-[id number] medial compartment osteoarthritis of both knees. She is having pain on a daily basis at this point in both of her knees. She has difficulty with daily activities. She has had cortisone injections in her knees in the past last 1 was about 2 years ago she does not remember if there was any help at all from that. She does take ndqe-ofm-ahsnclf anti-inflammatories but continues to have significant symptoms in both of her knees. At this point patient feels she would like to proceed with total knee arthroplasty on the left. Review of Systems Review of Systems: All systems reviewed & are unremarkable except as noted in HPI and below PMFSH Past Medical History Medical History Abnormal mammogram 06-23-2021 left breast asymmetries Dx mamm and US done 08/30/2021 probably Benign recommend 6 month f/u dx mamm and US Dyslipidemia Essential (primary) hypertension GERD without esophagitis Left breast mass Osteoarthritis Psoriasis Rosacea Screening mammogram, encounter for Seasonal allergies Vitamin D deficiency Surgical History Surgical History History of tubal ligation (12/26/91) [place] teeth extracted (~1981) Family History Family History Father Family history of lung cancer Mother Diabetes mellitus Hypertension Social History Social History Smoking packs per day: 1 Smoking cigarettes per day: 20.0 Years smoked: 7 Smoking pack-years: 7.00 Smoking status: Former smoker Tobacco type: cigarettes Second hand tobacco smoke exposure: No Smoking end date: 05/27/83 Alcohol intake: current Alcohol use details: consumes 3 beers or glasses of wine occasionally Substance use: never Substance use type: does not use Current Housing: Decline to Answer Concerned About Future Housing: Decline to Answer Difficulty Paying Gas/Electric Bills: Decline to Answer Difficulty Paying for Meds: Decline to Answer Currently Unemployed: Decline to Answer Education: Decline to Answer Difficulty w/ Childcare or Family Care: Decline to Answer Living arrangements: with family Additional living arrangements comments: [employer] Occupation/Education: retired Gender identity (if verbalized by the patient): Female Sexual Orientation (if Verbalized by the Patient): Straight or Heterosexual Spiritual care concerns: No Agree to blood products: Yes Meds Home Medications and Allergies Home Medications Medication Instructions Recorded Confirmed Type cholecalciferol (vitamin D3) 50 50 mcg PO DAILY 06/02/20 10/08/24 History mcg (2,000 unit) capsule (D3-1999) nvuzjybenznd-hmevpfpl-axokqqd-folic 1 tablet PO DAILY 06/02/20 10/08/24 History acid 400 mcg-vit K1 20 mcg tablet (One-A-Day Women's 50 Plus) simvastatin 40 mg tablet 40 mg PO QHS #90 tabs 05/15/24 10/08/24 Rx omeprazole 20 mg capsule,delayed 20 mg PO DAILY #90 caps 09/17/24 10/08/24 Rx release acetaminophen 500 mg capsule 1,000 mg PO Q6H PRN Pain 10/08/24 10/08/24 History fexofenadine 180 mg tablet 180 mg PO DAILY 10/08/24 10/08/24 History loratadine 5 mg-pseudoephedrine ER 1 tablet PO Q12H PRN Sinus Symptoms 10/08/24 10/08/24 History 120 mg tablet,extended release,12hr (Claritin-D 12 Hour) metoprolol succinate 25 mg 25 mg PO QAM #90 tabs 10/15/24 Rx tablet,extended release 24 hr hydrochlorothiazide 25 mg tablet 25 mg PO QAM #90 tabs 10/16/24 Rx potassium chloride 20 mEq 20 meq PO DAILY #90 tabs 10/17/24 Rx tablet,extended release Allergies Allergy/AdvReac Type Severity Reaction Status Date / Time No Known Allergies Allergy Verified 10/08/24 14:45 Exam Narrative: 69-year-old female very alert pleasant. BMI is 31.6. Her left knee range of motion is from 5-135 degrees. No effusion. Moderate tenderness over the medial joint line. Normal stability in the knee. Hip range of motion is full without discomfort. Negative Stinchfield maneuver. 1+ dorsalis pedis pulse. Normal sensation left lower extremity. Normal quad strength. There is no edema in the left lower extremity. Resp: Auscultation: clear to auscultation bilaterally Cardio: Rate: regular rate Rhythm: regular rhythm Assessment and Plan Assessment and plan (1) Primary localized osteoarthritis of both knees: Code(s): M17.0 - Bilateral primary osteoarthritis of knee Status: Acute Assessment and Plan: 69-year-old female who has eigx-qc-grmq medial compartment osteoarthritis in both knees. At this point the left knee is more symptomatic than the right. She feels she is ready proceed with total knee arthroplasty at this point. Surgical procedure as well as the risks and complications were discussed in detail all questions were answered and we will proceed. Patient will see her primary care doctor for pre-surgical clearance. She will stop her leave in any other aspirin ibuprofen products 1 week prior to surgery. Patient's nasal swab was negative. Hemoglobin 13.0 platelets were 334. Chem panel was all within normal limits creatinine is 0.90.
[2024-12-17 15:21] VITALS: BMI 29.7
--- NOTE | 2024-12-17 15:46 | PC.NURSE ---
Report to the Outpatient Waiting Room, entrance under the green pavilion located off [facility], at time __9:00AM on date ___12/26/24____. Planned Procedure Time: __11:00AM .? Time changes happen often and if your time is changed the preop area will call you the afternoon before. - You and your visitor will be asked to self-screen and do not enter if you have any COVID symptoms. Please call surgeon if you need to reschedule. - A mask is optional within the hospital at this time. Patients may have clear liquids (water, carbonated beverages, clear teas, apple juice) until 3 hours prior to surgery (8:00AM) with a maximum of 20 ounces. - No food from midnight until time of surgery and no smoking. This includes no chewing gum, candy or mints. Take only the following medications with a SIP of water on the morning of surgery: ___NONE DO NOT STOP ANY OF YOUR OTHER PRESCRIPTION MEDICATIONS PRIOR TO SURGERY EXCEPT THE FOLLOWING Medications to discontinue per physician HOLD ALL VITAMINS/SUPPLEMENTS 3 DAYS PRE-OP PER ANESTHESIA Date to take last dose 12/22/24 Please no make-up, nail yakut, hairspray, perfume, deodorant, or body powder the day of surgery.? No jewelry (including any body piercings) or valuables the day of surgery, leave them at home.? Please take a shower or bath the night before, or the morning of, surgery with an antibacterial soap.? Wear comfortable, loose fitting clothing.? - Jewelry must be removed prior to entering the operating room.? Rings and piercings that are not removed may be cut off. - The hospital will not accept responsibility for valuables.? - Please leave all valuables, including medications, at home the day of surgery. If you are going home after surgery, a licensed screw driver operator must drive you home.? - NO public transportation without another adult if you receive anesthesia. - We recommend that an adult stay with you for 24 hours following discharge. - We also recommend that you do not drive, make important decision, drink alcoholic beverages, or take any drugs that were not prescribed by your health care provider for at least 24 hours after your discharge time. Follow any additional instructions given to you from your surgeon. Telephone instructions given to ____PATIENT and asked if any additional questions and then verbalized understanding. Patient advised to call surgeon office or pre surgery nurse liaison [phone] if any additional questions.
--- NOTE | 2024-12-25 07:32 | P.HP_ITS ---
H&P: HPI History of Present Illness Date/Time: 12/25/24 07:32 Chief Complaint: Bilateral knee DJD Narrative: 69-year-old female who presents today for a left total knee arthroplasty with cortisone injection the right knee. Patient has been having symptoms in both knees for several years. It left knee always seems to be more symptomatic than the right. She does have bnzb-ce-wxda medial compartment osteoarthritis in the right knee and moderately severe medial compartment osteoarthritis in the left. She has been taking Aleve mnnx-txr-ocxdwhu on as-needed basis. She has had cortisone injections in both of her knees in the past, none for the last 2 years. She was not sure if they are giving her any relief. She has had viscosupplementation injections in the past as well. Patient has reached a point where her knees are bothering her on a daily basis and she is ready proceed with total knee arthroplasty rather than continue nonsurgical treatment. Review of Systems Review of Systems: All systems reviewed & are unremarkable except as noted in HPI and below PMFSH Past Medical History Medical History Abnormal mammogram 06-23-2021 left breast asymmetries Dx mamm and US done 08/30/2021 probably Benign recommend 6 month f/u dx mamm and US Dyslipidemia Essential (primary) hypertension GERD without esophagitis Left breast mass Osteoarthritis Psoriasis Rosacea Screening mammogram, encounter for Seasonal allergies Vitamin D deficiency Surgical History Surgical History History of tubal ligation (12/26/91) [place] teeth extracted (~1981) Family History Family History Father Family history of lung cancer Mother Diabetes mellitus Hypertension Social History Social History Smoking packs per day: 1 Smoking cigarettes per day: 20.0 Years smoked: 10 Smoking pack-years: 10.00 Smoking status: Former smoker Tobacco type: cigarettes Second hand tobacco smoke exposure: No Smoking end date: 05/27/84 Alcohol intake: current Alcohol use details: consumes 3 beers or glasses of wine occasionally Substance use: never Substance use type: does not use Current Housing: Decline to Answer Concerned About Future Housing: Decline to Answer Difficulty Paying Gas/Electric Bills: Decline to Answer Difficulty Paying for Meds: Decline to Answer Currently Unemployed: Decline to Answer Education: Decline to Answer Difficulty w/ Childcare or Family Care: Decline to Answer Living arrangements: with family Additional living arrangements comments: [place] Occupation/Education: retired Gender identity (if verbalized by the patient): Female Sexual Orientation (if Verbalized by the Patient): Straight or Heterosexual Spiritual care concerns: No Agree to blood products: Yes Meds Home Medications and Allergies Home Medications ?Medication ?Instructions ?Recorded ?Confirmed ?Type cholecalciferol (vitamin D3) 50 50 mcg PO DAILY 06/02/20 10/08/24 History mcg (2,000 unit) capsule (D3-1999) lonolchcqdfv-heanpeli-fpeyjad-folic 1 tablet PO DAILY 06/02/20 10/08/24 History acid 400 mcg-vit K1 20 mcg tablet (One-A-Day Women's 50 Plus) omeprazole 20 mg capsule,delayed 20 mg PO DAILY #90 caps 09/17/24 10/08/24 Rx release acetaminophen 500 mg capsule 1,000 mg PO Q6H PRN Pain 10/08/24 10/08/24 History fexofenadine 180 mg tablet 180 mg PO DAILY 10/08/24 10/08/24 History loratadine 5 mg-pseudoephedrine ER 1 tablet PO Q12H PRN Sinus Symptoms 10/08/24 10/08/24 History 120 mg tablet,extended release,12hr (Claritin-D 12 Hour) hydrochlorothiazide 25 mg tablet 25 mg PO QAM #90 tabs 10/16/24 12/17/24 Rx potassium chloride 20 mEq 20 meq PO DAILY #90 tabs 10/17/24 12/17/24 Rx tablet,extended release losartan 25 mg tablet 25 mg PO DAILY #90 tabs 11/04/24 12/17/24 Rx simvastatin 40 mg tablet 40 mg PO QHS #90 tabs 11/08/24 12/17/24 Rx Allergies Allergy/AdvReac Type Severity Reaction Status Date / Time No Known Allergies Allergy Verified 12/17/24 15:17 Exam Narrative: 69-year-old female alert pleasant. She is 5 ft 7 and 191 lb BMI is 20.9. Left knee range of motion is from 5-135 degrees. No effusion. Moderate tenderness over the medial joint line. She has normal stability in the knee. Hip range of motion is full without discomfort, negative Stinchfield maneuver. 1+ dorsalis pedis and 2+ posterior tibial artery pulse palpable. Normal quad strength. Normal sensation to the left lower extremity. No edema in either lower extremity. Resp: Auscultation: clear to auscultation bilaterally Cardio: Rate: regular rate Rhythm: regular rhythm Assessment and Plan Assessment and plan (1) Primary localized osteoarthritis of both knees: Code(s): M17.0 - Bilateral primary osteoarthritis of knee Status: Acute Assessment and Plan: 69-year-old female who has severe medial compartment osteoarthritis in the left knee and moderately severe medial compartment osteoarthritis in the right. At this point nonsurgical treatment is not giving her satisfactory improvement. She wished to proceed with total knee arthroplasty on the left at this point. She would also like to have a cortisone injection the right knee at the time surgery. Patient will stop her anti-inflammatories 1 week prior to surgery. She will also avoid any other aspirin products as well. She will see her primary care doctor for pre-surgical clearance. She has seen cardiology and did have an echo done which showed mild left ventricular hypertrophy and ejection fraction at 56%. She has been cleared cardiology standpoint. Surgical procedures well as the risks and complications were discussed in detail questions were answered we will proceed. Patient's nasal swab was negative. Hemoglobin 13.3 and platelets were 319. Chem panel was all within normal limits creatinine 0.90
--- NOTE | 2024-12-25 12:56 | WPDANESEPPF ---
Anes - Initial Pre Proc Eval Procedure: Operation Date: 12/26/24 11:00 Proposed Procedures p Left Total Knee Arthroplasty, Cortisone Injection Right Knee - Mj Mckinney MD Date/Time: 12/25/24 12:56 Surgeon: Mj Mckinney MD Pre Op Diagnosis: oa bilateral knees Patient Data Age: 69 Gender: F Height: 1.69 m Weight: 85 kg Last Vital Signs Temp 98.8 F 10/08/24 14:08 Pulse 79 10/08/24 14:08 Resp 16 10/08/24 14:08 BP 145/81 H 10/08/24 14:08 Pulse Ox 98 10/08/24 14:08 O2 Del Method Room Air 10/08/24 14:08 Allergies Allergy/AdvReac Type Severity Reaction Status Date / Time No Known Allergies Allergy Verified 12/17/24 15:17 Home Medications ?Medication ?Instructions ?Recorded ?Confirmed ?Type cholecalciferol (vitamin D3) 50 50 mcg PO DAILY 06/02/20 12/26/24 History mcg (2,000 unit) capsule (D3-1999) diezwwohihie-cvsiojbf-cnwtlij-folic 1 tablet PO DAILY 06/02/20 12/26/24 History acid 400 mcg-vit K1 20 mcg tablet (One-A-Day Women's 50 Plus) omeprazole 20 mg capsule,delayed 20 mg PO DAILY #90 caps 09/17/24 12/26/24 Rx release acetaminophen 500 mg capsule 1,000 mg PO Q6H PRN Pain 10/08/24 12/26/24 History fexofenadine 180 mg tablet 180 mg PO DAILY 10/08/24 12/26/24 History loratadine 5 mg-pseudoephedrine ER 1 tablet PO Q12H PRN Sinus Symptoms 10/08/24 12/26/24 History 120 mg tablet,extended release,12hr (Claritin-D 12 Hour) hydrochlorothiazide 25 mg tablet 25 mg PO QAM #90 tabs 10/16/24 12/26/24 Rx potassium chloride 20 mEq 20 meq PO DAILY #90 tabs 10/17/24 12/26/24 Rx tablet,extended release losartan 25 mg tablet 25 mg PO DAILY #90 tabs 11/04/24 12/26/24 Rx simvastatin 40 mg tablet 40 mg PO QHS #90 tabs 11/08/24 12/26/24 Rx Patient hx anesthesia problems: post op nausea/vomiting Family hx anesthesia problems: none Results Review: All pre-operative results and documents have been reviewed as part of the pre-operative evaluation. [facility] Past Medical History Medical History Abnormal mammogram 06-23-2021 left breast asymmetries Dx mamm and US done 08/30/2021 probably Benign recommend 6 month f/u dx mamm and US Dyslipidemia Essential (primary) hypertension GERD without esophagitis Left breast mass Osteoarthritis Psoriasis Rosacea Screening mammogram, encounter for Seasonal allergies Vitamin D deficiency Surgical History Surgical History History of tubal ligation (12/26/91) [place] teeth extracted (~1981) Family History Family History Father Family history of lung cancer Mother Diabetes mellitus Hypertension Social History Social History Smoking packs per day: 1 Smoking cigarettes per day: 20.0 Years smoked: 10 Smoking pack-years: 10.00 Smoking status: Former smoker Tobacco type: cigarettes Second hand tobacco smoke exposure: No Smoking end date: 05/27/84 Alcohol intake: current Alcohol use details: consumes 3 beers or glasses of wine occasionally Substance use: never Substance use type: does not use Current Housing: Decline to Answer Concerned About Future Housing: Decline to Answer Difficulty Paying Gas/Electric Bills: Decline to Answer Difficulty Paying for Meds: Decline to Answer Currently Unemployed: Decline to Answer Education: Decline to Answer Difficulty w/ Childcare or Family Care: Decline to Answer Living arrangements: with family Additional living arrangements comments: [place] Occupation/Education: retired Gender identity (if verbalized by the patient): Female Sexual Orientation (if Verbalized by the Patient): Straight or Heterosexual Spiritual care concerns: No Agree to blood products: Yes Anes - Eval Final PreProcedure Day of Procedure 12/25/24 12:56 Patient weight: obese Heart: regular rate and rhythm Lungs: clear to auscultation Airway: Mallampati scale class II Neurological: alert and oriented Last oral intake: >/= 8 hours ASA classification: III Emergent: no Anesthetic plan: proceed Anesthesia type and monitoring: general ETT and standard monitoring Results Review: All pre-operative results and documents have been reviewed as part of the pre-operative evaluation. Informed Consent: The patient's anesthetic plan and its attendant risks and benefits were discussed with the patient/family/POA. Questions were solicited and answers provided to the satisfaction of the patient/family/POA.
[2024-12-26] VITALS (15 sets, daily range): BP systolic 94–141; BP diastolic 7–80; PULSE 88–108; RESP 12–18; TEMP 36.3–37.2; O2SAT 94–99
--- NOTE | ~2024-12-26 | XR_ITS ---
EXAMINATION: [id number] DATE: 12/26/2024 15:00 [employer]ON[employer] TRANSPORT TECHNICIAN INDICATION: Left total knee arthroplasty TECHNIQUE: 2 views left knee FINDINGS: There is a left total knee arthroplasty in expected position. Subcutaneous gas with fluid and air in the joint are consistent with recent surgery. No evidence of periprosthetic fracture. IMPRESSION: 1. Recent left total knee arthroplasty. Reviewed, dictated and finalized at location A. NER TRANSPORT TECHNICIAN
--- OUTSIDE RECORDS SUMMARY | 2024-12-26 01:33 | XMS_ITS | Data Portability ---
Author Organization [place] [facility], Main Office Address [address] [place] [address] Care Team Providers Care Collection Officer Name Role Phone TYE VILLAVICENCIO Primary Care Provider [phone] TYE VILLAVICENCIO Referring Provider Assessment Encounter Date Assessment Date Assessment LastModified by Organization Details LastModified Time 03/08/2023 03/08/2023 HPI: Patient returns. It has been 3 months last cortisone injection both. She has moderately severe osteoarthritis knees. Injections continue to give her good relief. She is qsay-hjt-ipnjsfo which she feels helps better prescription strength. [...] procedure, administere d by provider 2022 023 [email or web address] In-Office Order, Internal Use Only DO Not Attach Compendium DO Not Attach Compendium, Do Not Delete/merge, [id number] 09:04:57 Surgeries None recorded. Imaging None recorded. Medication Orders Kenalog 10 mg/mL suspension for injection [address] [facility] [place], [address], 3 16:20:26 ropivacaine (PF) 5 mg/mL (0.5 %) injection solution [address] [facility] [address] [place], [address], 3 16:20:26 Patient TargetsNo targets recorded. Patient InstructionsNo instructions recorded. Reason for Referral None Reported. Results Created Date Observation Date Name Description Value Unit Range Abnormal Flag Note LastModifiedBy Organization Detail LastModifiedTime 03/09/20 22 XR, knee No observ ation record ed. [id number] [id number] [place] [address] [facility] [address], [place], [address], 01/25/2023 08:13:39 Result Notes None recorded. Problems Name Problem SNOMED Code Status Onset Date Resolution Date Notes Provider Name and Address Organization Details Recorded Time Osteoarthr itis 642360513 Active 2021 Not Available [facility] 3 08:08:47 Bilateral osteoarthr itis of knees 6051952207207 07 Active 2022 GIL Calvin, [place] - [facility] 3 09:03:34 Problem Notes None recorded. 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, [place], [address], 01/25/2023 08:13:39 Procedure Notes None recorded. Medical [...] suspension for injection in office 2022 active [facility]: 0003- 0494- 20 Not Available Not [...] administe red by the provider 03/09 completed [facility]: 0409- 4276- 17 Not Available Not [...] Updated DateTime 12/07/2022 32.3 kg/m2 162.56 cm 58154.37 g Not Available [facility] 01/25/2023 08:06:36 Date Recorded Body height Provider Name an d Address Organization Details Last Updated DateTime 03/09/2022 166.37 cm Not Available [facility] 3 08:06:35 Date Recorded Body height Provider Name an d Address Organization Details Last Updated DateTime 06/08/2022 166.37 cm Not Available [facility] 3 08:06:35 Date Recorded Body height Provider Name an d Address Organization Details Last Updated DateTime 09/07/2022 166.37 cm Not Available [facility] 3 08:06:35 Date Recorded Body height Provider Name an d Address Organization Details Last Updated DateTime 03/08/2023 162.56 cm Shasha Green, RMA [facility] 03/08/2023 09:02:31 Social History Question Answer Notes LastModified by [employer] Details LastModified Time Tobacco Smoking Status Never Smoker April Keith kehinde, [facility] 03/08/2023 09:01:28 What Is Your Level Of Alcohol Consumption? None [id number] Information not available 01/25/2023 What Is Your Level Of Caffeine Consumption? None [id number] Information not available 01/25/2023 In The 14 Days Before Symptom Onset, Have You Had Close Contact With A Laboratory-confir med COVID-19 While That Case Was Ill? No [email or web address] Information not available 03/08/2023 In The 14 Days Before Symptom Onset, Have You Had Close Contact With A Person Who Is Under Investigation For COVID-19 While That Person Was Ill? No [email or web address] Information not available 03/08/2023 Which Illicit Or Recreational Drugs Have You Used? None [email or web address] Information not available 03/08/2023 Do You Or Have You Ever Used E-cigarettes Or Vape? 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 Occasional [id number] Information not available 01/25/2023 Mental Status None recorded. Family History Relationship Description Onset Age of this Age Resolved Age Notes LastModified by Organization Details LastModified Time Mother Diabetes mellitus [id number] Not available 01/25/2023 08:05:07 Mother Hypertensive disorder [id number] Not available 01/25/2023 08:05:07 Father Malignant tumor of lung [email or web address] Not available 03/08 09:01:28 Father Family history of malignant neoplasm [email or web address] Not available 03/08 09:01:28 Medical History Condition [...] 50 mcg/0.25mL dose 01/15/2021 completed Not Available [facility] 3 08:13:17 COVID-19, mRNA, LNP-S, PF, 100 mcg/0.5mL dose or 50 mcg/0.25mL dose 12/17/2020 completed Not Available [facility] 3 08:13:18 Past Encounters Encounter ID Performer Location Encounter Start Date Encounter Closed Date Diagnosis/Indication Diagnosis SNOMED-CT Code Diagnosis ICD10 Code Diagnosis Note [id number] _ALFONSO_Nini IGRATION_ DEFAULT_1 _1 , 03/03/2021 00:00:00 03/03/2021 11:59:44 [id number] [facility] [place] [address] [facility] [address] [place] [address] 12/01/2021 00:00:00 12/01/2021 16:18:33 [id number] [facility] [place] [address] [facility] [address] [place] [address] 03/09/2022 00:00:00 03/09/2022 09:41:49 [id number] [facility] [place] [address] [facility] [address] [place] [address] 06/08/2022 00:00:00 06/08/2022 09:27:51 [id number] [facility] [place] [address] [place] [address] 09/07/2022 00:00:00 09/07/2022 09:30:00 [id number] [facility] [place] [address] [place] [address] 12/07/2022 00:00:00 12/07/2022 09:08:52 [id number] MACI Echols [facility] [place] [address] [place] [address] 03/08/2023 08:59:05 03/08/2023 09:19:32 Bilateral osteoarthritis of knees [id number] M17.0 Health Concerns Section Related Observation LastModified by Organization Detai ls LastModified Time None Recorded Concern Status LastModified by Organization Details LastModified Time None Recorded Advance Directives Directive None Recorded Payers Encounter Date Sequence Insurance Name Policy Number Policy Shelley Covered Member ID Shelley Member ID Guarantor Name 03/08/2023 1 [place]ARE[place] (MEDICARE[place] Essence Sommers [id number] Essence Sommers 03/08/2023 2 [facility] (MEDICARE SUPPLEMENT) Essence Sommers [id number] Essence Sommers OBGyn Episode No OBEpisode recorded.
[2024-12-26] MEDS: TRANEXAMIC ACID 1,000MG/ISO100 1,000 MG/100 ML BAG 200 MG IVPB (10:00)
[2024-12-26] MEDS: VANCOMYCIN 1,250 MG/NS 250 ML BAG 166.67 MG IVPB (10:00)
[2024-12-26] MEDS: LACTATED RINGERS 1,000 ML 30 ML IV CONT ×2 (10:00→14:52)
[2024-12-26] MEDS: ACETAMINOPHEN 500 MG TABLET 1000 MG PO (10:00)
[2024-12-26] MEDS: SCOPOLAMINE 1 MG PATCH 1 PATCH TRANSDERM (11:00)
--- NOTE | 2024-12-26 11:03 | WPDHPUPDATE1 ---
History and Physical Update Update Date/Time: 12/26/24 11:03 History and Physical has been reviewed, including an updated exam of the patient. There are NO changes in the patient's condition. Risks, benefits, and alternatives have been discussed and questions answered. Patient agrees to proceed with procedure.
[2024-12-26] MEDS: ceFAZolin 2 GM/D5W 50 ML 2 GM/50 ML BAG IVPB ×2 (11:41→20:43)
[2024-12-26] MEDS: methylPREDNISolone ACETATE 80 MG/ML VIAL IM (11:48)
[2024-12-26] MEDS: ceFAZolin SODIUM 1 GM VIAL 3 GM (12:15)
[2024-12-26] MEDS: SODIUM CHLORIDE 0.9% IV 37.7 ML, MORPHINE SULFATE INJ (*CRX) 2 MG, ROPivacaine HCL 1% 2... INFILTRATE (12:32)
[2024-12-26] MEDS: LIDOCAINE 1% LOCAL INJ 10 ML VIAL 4 ML INFILTRATE (12:36)
[2024-12-26] MEDS: KETOROLAC 15 MG/ML VIAL (*BKC) IV PUSH (12:45)
[2024-12-26] MEDS: GENTAMICIN BONE CEMENT REFOBACIN 1 EACH TOPICAL (13:49)
[2024-12-26] MEDS: ceFAZolin SODIUM 1 GM VIAL 2 GM IV PUSH (13:57)
[2024-12-26] MEDS: TRANEXAMIC ACID 1,000 MG/10 ML AMPUL 1000 MG IV PUSH (14:00)
--- NOTE | 2024-12-26 14:55 | P.OP_ITS ---
Procedure Note - Detailed Date of Procedure 12/26/24 Pre-op Diagnosis oa bilateral knees Post-op Diagnosis Same Procedure Performed Left total knee arthroplasty, cortisone injection right Surgeon Mj Mckinney MD Security Representative Lois Anesthesia General Description of Procedure Patient was brought to the operating room and general anesthesia was administered. She received 2 g of Ancef weight based vancomycin 1 g of TXA preoperatively. The right knee was prepped with ChloraPrep and 80 mg of Depo-Medrol and 4 cc 1% lidocaine were injected through a lateral parapatellar approach without difficulty. The left knee was prepped draped usual fashion. It was a 5 degree flexion contracture under anesthesia. Moderate medial pseudolaxity. Limb was exsanguinated tourniquet elevated to 300 mmHg. A 7 in longitudinal midline incision was used and a vastus medialis splitting approach utilized splitting the vastus medialis at the superior pole of patella. The patella showed higher grade chondromalacia of the medial facet but cartilage of the apex and lateral facet was normal and I felt this was very suitable for non resurfacing. Osteophytes were removed and a limited lateral facetectomy was performed. A guide yaneli was inserted on femoral canal after aspiration of canal contents using the 5 degree valgus cutting bushing 9 mm of bone removed the distal femur. We tried to introduce a little bit of posterior slope to compensate for her posterior distal femoral metaphyseal curvature. The next the tibia was cut perpendicular to the axis of the tibia removing about 2 mm of bone from the low point of the medial tibial plateau. Meniscal remnants were excised the PCL recessed. Anteromedial tibial osteophytes were removed. The At 90? the flexion gap measured 9 mm medially and 12 mm laterally. The femoral sizing guide was applied to distal femur set at 4? of external rotation which matched Whitesides line. Posterior referencing pinholes were placed and the size 65 cutting block applied the distal femur. This produced a anterior cut was flush with the anterior cortex. Posterior chamfer cuts were made the size 65 fit well. While flush on the medial side it hung over about 0.5 mm on the lateral side knee. I did not feel that downsizing would be appropriate as this would have lead to a more janny notch. The the tibia was sized to a size 67 which fit line to line the proper rotation anteromedial to posterolateral. The 71 was too large. We trialed with the 10 insert which was little bit loose in flexion and allowed full extension. The size 11 insert gave appropriate AP stability at 90? with 1 mm medial opening 1 2 mm of lateral opening at 90?. The gravity flexion 125. And extension it was too tight medially. The laterally we had opening of 2 mm. We lacked about 3? of extension. Posteromedial tibial osteophyte was removed. We did not release capsule over. Posterior femoral osteophytes was removed and central posterior capsular release performed. On triialing with the 11 the knee had a barely positive bounce. There was 3 mm of lateral opening 1 mm of medial opening to. I assessed the alignment the distal femoral cut with a 5 degree yaneli we can see that we were actually at about 6? the route to the axis of the femoral canal. Acromial removed additional 1 mm of bone from the medial femoral condyle distally and transition this to lateral femoral condyle and confirmed we were at exactly 5? now in the knee trialing the knee came out to full extension with the 11 insert with 2 mm of medial opening to see and a negative bounce. We trialed with the 12 and this did not achieve full extension with excessive tightness in flexion as well. Lug holes were drilled for the femoral component and the bony surfaces were prepared with the step drill and thoroughly irrigated and dried. Two batches of methylmethacrylate were mixed 1 the gentamicin powder medially applied the size 67 tibial component the size 65 femoral component cement applied the tibial plateau pressurized and tibial component fully seated cement applied the femur the femoral component fully seated and a 12 mm 5 1 insert placed knee brought into extension for pressurization the tourniquet released total tourniquet time 109 minutes. Two additional g of Ancef 1 more TXA were given. After cement hardening excess cement was sought for removed and hemostasis was achieved. The we trialed with the 10 insert which had the same stability findings as above the 12 was excessively tight in flexion and a positive bounce. The to 11 insert was placed without difficulty locked with a locking pin range of motion stability patellar tracking were confirmed. Local anesthetic cocktail was injected into the periarticular soft tissues. The arthrotomy was closed with 2. Vicryl and 1. Unidirectional barbed Stratafix suture. The split closed with 1. Vicryl. Skin closed with 2 subcutaneous Vicryl 3-0 subcuticular Monocryl and glue EBL was 100 cc. There were no complications he was transferred postop recovery room in stable condition. [facility] Billing Surgery - Charge Forward: Surgery Billing
--- NOTE | 2024-12-26 14:59 | PM.OP ---
Procedure Note - Brief Procedure Note - Brief Date of procedure: 12/26/24 oa bilateral knees Procedure performed: Left total knee arthroplasty Surgeon: MACI Espinoza Findings: 69-year-old female underwent left total knee arthroplasty on 12/26. I was involved in the procedure including positioning the patient on the OR table in 1st assisting through the time surgery. Total time spent was 2-1/2 hours
[2024-12-26] MEDS: fentaNYL CITRATE INJ (*CRX) 100 MCG/2 ML VIAL 25 MCG IV PUSH ×2 (16:27→16:30)
--- NOTE | 2024-12-26 17:19 | ADMGEN ---
This patient, Essence Sommers, was admitted to 3 [facility] Surg Room 317-01. Patient/family oriented to hospital policies and general routines including ID bracelet, bed and alarms, visiting hours, pain management, procedures, bathroom and other care routines, personal items, smoking policy, room service/diet, and visiting hours. Information on how to activate the Rapid Response Team has been discussed. Patient/Family are encouraged to report perceived risks to care and to ask questions if they do not understand what they are told or what they should do.
--- NOTE | 2024-12-26 18:05 | PM.IMCN ---
Assessment and Plan Assessment and plan (1) Osteoarthritis of knees, bilateral: Qualifiers: Osteoarthritis type: primary Qualified Code(s): M17.0 - Bilateral primary osteoarthritis of knee Code(s): M17.0 - Bilateral primary osteoarthritis of knee Status: Acute Assessment and Plan: Postoperative day 0 status post left total knee arthroplasty and right knee cortisone injection. Wound care, pain control, and DVT prophylaxis deferred to Orthopedic Service. Trial promethazine for nausea given no improvement with ondansetron. Check baseline labs in a.m. (2) Essential (primary) hypertension: Code(s): I10 - Essential (primary) hypertension Status: Acute Assessment and Plan: Blood pressures were reviewed and they have been stable postoperatively. Resume hydrochlorothiazide and losartan and continue to monitor. (3) Dyslipidemia: Code(s): E78.5 - Hyperlipidemia, unspecified Status: Acute Assessment and Plan: Continue simvastatin and check LFTs. (4) GERD without esophagitis: Code(s): K21.9 - Gastro-esophageal reflux disease without esophagitis Status: Acute Assessment and Plan: No recent issues. Continue PPI. Plan Thank you for allowing us to participate in this patient's care. Please do not hesitate to contact us with any questions. HPI Date of Consult Consult date: 12/26/24 Requesting Physician: Mj Mckinney MD Primary Care Provider: Saulo Meade MD Consult Narrative Reason for consult: medical management Narrative: This is a 69-year-old female with osteoarthritis of both knees, hypertension, dyslipidemia, and gastroesophageal reflux disease whom the hospitalist service has been consulted for help managing her medical conditions postoperatively. She presented today for elective total knee arthroplasty due to ongoing pain despite conservative outpatient treatment. Her surgery was performed under general anesthesia with no immediate complications documented an estimated blood loss of 100 mL. She also had a cortisone injection in the right knee. Postoperatively her pain is well controlled. She reports ongoing nausea despite receiving ondansetron. She denies fever, chills, sweats, abdominal pain, bloating, vomiting, chest pain, and shortness of breath. No personal or family history of venous thromboembolism. Regarding her chronic medical conditions, she reports that they are well controlled on medication. Review of Systems Review of Systems: 12 systems were reviewed and are negative except for as per HPI. [facility] Past Medical History Medical History (Updated 12/26/24 @ 18:17 by Peggy Rivera PA-C) Seasonal allergies Osteoarthritis Abnormal mammogram 06-23-2021 left breast asymmetries Dx mamm and US done 08/30/2021 probably Benign recommend 6 month f/u dx mamm and US Left breast mass Rosacea Psoriasis Vitamin D deficiency Essential (primary) hypertension GERD without esophagitis Dyslipidemia Surgical History Surgical History (Updated 12/26/24 @ 18:17 by Peggy Rivera PA-C) History of arthroplasty of left knee (12/26/24) History of wisdom tooth extraction (1981) History of tubal ligation (12/26/91) Family History Family History Father Family history of lung cancer Mother Diabetes mellitus Hypertension Social History Social History (Updated 12/26/24 @ 18:17 by Peggy Rivera PA-C) Social History: Surrogate medical decision maker: Oleg Sommers, spouse. Code status: Full code. Smoking packs per day: 1 Smoking cigarettes per day: 20.0 Years smoked: 10 Smoking pack-years: 10.00 Smoking status: Former smoker Tobacco type: cigarettes Second hand tobacco smoke exposure: No Smoking end date: 05/27/84 Alcohol intake: never Alcohol use details: consumes 3 beers or glasses of wine occasionally Substance use: never Substance use type: does not use Do You Feel Safe in your Home?: Yes Lack of Transportation: No Lack of Food: Never True Current Housing: I Have Housing Concerned About Future Housing: No Difficulty Paying Gas/Electric Bills: No Difficulty Paying for Meds: No Currently Unemployed: No Education: Decline to Answer Difficulty w/ Childcare or Family Care: No Living arrangements: with family Additional living arrangements comments: Lives with spouse in [place]. Occupation/Education: retired Spiritual care concerns: No Agree to blood products: Yes Meds Home Medications and Allergies Home Medications ?Medication ?Instructions ?Recorded ?Confirmed ?Type cholecalciferol (vitamin D3) 50 50 mcg PO DAILY 06/02/20 12/26/24 History mcg (2,000 unit) capsule (D3-1999) njalynvqleaq-pxacoqki-hwzvohr-folic 1 tablet PO DAILY 06/02/20 12/26/24 History acid 400 mcg-vit K1 20 mcg tablet (One-A-Day Women's 50 Plus) omeprazole 20 mg capsule,delayed 20 mg PO DAILY #90 caps 09/17/24 12/26/24 Rx release acetaminophen 500 mg capsule 1,000 mg PO Q6H PRN Pain 10/08/24 12/26/24 History fexofenadine 180 mg tablet 180 mg PO DAILY 10/08/24 12/26/24 History loratadine 5 mg-pseudoephedrine ER 1 tablet PO Q12H PRN Sinus Symptoms 10/08/24 12/26/24 History 120 mg tablet,extended release,12hr (Claritin-D 12 Hour) hydrochlorothiazide 25 mg tablet 25 mg PO QAM #90 tabs 10/16/24 12/26/24 Rx potassium chloride 20 mEq 20 meq PO DAILY #90 tabs 10/17/24 12/26/24 Rx tablet,extended release losartan 25 mg tablet 25 mg PO DAILY #90 tabs 11/04/24 12/26/24 Rx simvastatin 40 mg tablet 40 mg PO QHS #90 tabs 11/08/24 12/26/24 Rx Allergies Allergy/AdvReac Type Severity Reaction Status Date / Time No Known Allergies Allergy Verified 12/17/24 15:17 Vital Signs Vital Signs - 24 hr 12/26/24 10:21 12/26/24 14:52 12/26/24 15:05 Temperature 97.8 F 98.4 F Pulse Rate 108 H 102 H 106 H Respiratory Rate 16 16 17 Blood Pressure 141/72 H 125/76 128/71 Pulse Oximetry 95 94 97 Oxygen Delivery Room Air Simple Face Mask Simple Face Mask Oxygen Flow Rate 8 8 12/26/24 15:20 12/26/24 15:35 12/26/24 15:50 Temperature Pulse Rate 104 H 105 H 104 H Respiratory Rate 15 15 15 Blood Pressure 117/75 125/7 L 121/80 Pulse Oximetry 99 98 Oxygen Delivery Simple Face Mask Simple Face Mask Simple Face Mask Oxygen Flow Rate 8 8 8 12/26/24 16:05 12/26/24 16:10 12/26/24 16:20 Temperature Pulse Rate 104 H 103 H Respiratory Rate 14 14 Blood Pressure 132/76 139/76 Pulse Oximetry 99 96 Oxygen Delivery Room Air Nasal Cannula Nasal Cannula Oxygen Flow Rate 2 2 12/26/24 16:35 12/26/24 16:45 Temperature 97.3 F L Pulse Rate 103 H 100 Respiratory Rate 12 16 Blood Pressure 132/72 133/75 Pulse Oximetry 94 96 Oxygen Delivery Nasal Cannula Nasal Cannula Oxygen Flow Rate 2 2 Exam Narrative: General: Well-developed, mildly ill-appearing female sitting up in bed. Weight: 85 kg. BMI: 29.8. HEENT: Normocephalic, atraumatic. PERRL, EOMI. Sclera anicteric. Tacky mucous membranes. Neck: Supple. Respiratory: Lungs are clear to auscultation bilaterally. Cardiovascular: Regular rate and rhythm with S1-S2. Gastrointestinal: Abdomen is soft, nontender, and nondistended with positive bowel sounds. Skin: Warm and dry. No rash or lesions on limited exam. Extremities: No cyanosis, clubbing, or edema. Radial and pedal pulses intact. Musculoskeletal: Left knee dressing is clean, dry, and intact. Neurological: Alert. Cranial nerves 2-12 are grossly intact. No gross focal deficits to casual conversation. Psychiatric: Pleasant and cooperative with normal mood and affect. Judgment and insight intact.
[2024-12-26] MEDS: ACETAMINOPHEN 325 MG TABLET 650 MG PO ×2 (18:18→21:23)
[2024-12-26] MEDS: oxyCODONE HCL (*CRX) 5 MG TAB IR PO ×2 (18:18→21:23)
[2024-12-26] MEDS: SENNA/DOCUSATE SODIUM TABLET 2 TAB PO (18:19)
[2024-12-26] MEDS: PROMETHAZINE HCL 25 MG/ML AMPUL 12.5 MG IV PUSH (20:43)
[2024-12-26] MEDS: SIMVASTATIN 20 MG TABLET 40 MG PO (21:24)
[2024-12-26] MEDS: FAMOTIDINE 20 MG TABLET PO (21:24)
[2024-12-26] MEDS: VANCOMYCIN 1,000 MG/NS 250 ML 1,000 MG/250 ML BAG 250 MG IVPB (21:51)
[2024-12-26] MEDS: SODIUM CHLORIDE 0.9% IV 1,000 ML 125 ML IV CONT (23:48)
[2024-12-27] MEDS: oxyCODONE HCL (*CRX) 5 MG TAB IR PO ×4 (00:43→13:19)
[2024-12-27] MEDS: ACETAMINOPHEN 325 MG TABLET 650 MG PO ×4 (00:43→13:19)
[2024-12-27 02:33] VITALS: BP 110/59; PULSE 92; RESP 18; TEMP 37; O2SAT 94
[2024-12-27] MEDS: ceFAZolin 2 GM/D5W 50 ML 2 GM/50 ML BAG IVPB ×2 (04:47→13:19)
[2024-12-27 05:24] VITALS: BP 107/62; PULSE 88; RESP 18; TEMP 36.9; O2SAT 94
--- NOTE | 2024-12-27 07:35 | P.PNOP_ITS ---
Subjective Subjective Date/Time Seen: 12/27/24 07:35 Interval history: Postop day 1 patient is alert. She is afebrile vital signs are stable. Pain is well controlled. Patient was up overnight to the restroom and urinating well. Dressing is dry and intact. Neurovascularly she is intact. Morning labs are pending. The plan will be to have patient work with therapy this morning and again this afternoon. Once IV antibiotics have been completed and she continues to be doing well she will be discharged home early this afternoon. Objective Data Vital Signs Vital Signs: Vital Signs - 24 hr 12/26/24 10:21 12/26/24 14:52 12/26/24 15:05 Temperature 97.8 F 98.4 F Pulse Rate 108 H 102 H 106 H Respiratory Rate 16 16 17 Blood Pressure 141/72 H 125/76 128/71 Pulse Oximetry 95 94 97 Oxygen Delivery Room Air Simple Face Mask Simple Face Mask Oxygen Flow Rate 8 8 12/26/24 15:20 12/26/24 15:35 12/26/24 15:50 Temperature Pulse Rate 104 H 105 H 104 H Respiratory Rate 15 15 15 Blood Pressure 117/75 125/7 L 121/80 Pulse Oximetry 99 98 Oxygen Delivery Simple Face Mask Simple Face Mask Simple Face Mask Oxygen Flow Rate 8 8 8 12/26/24 16:05 12/26/24 16:10 12/26/24 16:20 Temperature Pulse Rate 104 H 103 H Respiratory Rate 14 14 Blood Pressure 132/76 139/76 Pulse Oximetry 99 96 Oxygen Delivery Room Air Nasal Cannula Nasal Cannula Oxygen Flow Rate 2 2 12/26/24 16:35 12/26/24 16:45 12/26/24 17:05 Temperature 97.3 F L 98.4 F Pulse Rate 103 H 100 99 Respiratory Rate 12 16 18 Blood Pressure 132/72 133/75 129/79 Pulse Oximetry 94 96 97 Oxygen Delivery Nasal Cannula Nasal Cannula Oxygen Flow Rate 2 2 12/26/24 17:20 12/26/24 17:50 12/26/24 18:50 Temperature 98.2 F 97.9 F 98.2 F Pulse Rate 95 97 95 Respiratory Rate 16 16 16 Blood Pressure 132/70 125/75 118/66 Pulse Oximetry 98 98 98 Oxygen Delivery Oxygen Flow Rate 12/26/24 20:00 12/26/24 22:01 12/27/24 02:33 Temperature 99.0 F 98.6 F Pulse Rate 88 92 Respiratory Rate 18 18 Blood Pressure 94/56 L 110/59 L Pulse Oximetry 95 94 Oxygen Delivery Room Air Oxygen Flow Rate 12/27/24 05:24 Temperature 98.4 F Pulse Rate 88 Respiratory Rate 18 Blood Pressure 107/62 Pulse Oximetry 94 Oxygen Delivery Oxygen Flow Rate Intake/Output Intake/Output: Intake & Output 12/24/24 12/25/24 12/26/24 12/27/24 23:59 23:59 23:59 23:59 Intake Total 1040 530 Balance 1040 530 Meds/Results Medications: Active Medications Generic Name Dose Route Start Last Admin Trade Name Freq PRN Reason Stop Dose Admin Acetaminophen 650 mg 12/26/24 17:00 12/27/24 05:22 Acetaminophen 325 Mg Tablet PO 650 mg Q4HR LULA Administration Apixaban 2.5 mg 12/27/24 09:00 Apixaban 2.5 Mg Tablet PO 01/07/25 21:01 Q12HR LULA Cefdinir 300 mg 12/27/24 21:00 Cefdinir 300 Mg Capsule PO Q12HR LULA Celecoxib 100 mg 12/27/24 08:00 Celecoxib 100 Mg Capsule PO DAILY@0800 LULA Diphenhydramine HCl 25 mg 12/26/24 16:48 Diphenhydramine Hcl Inj 50 Mg/Ml Vial IV PUSH Q6H PRN Itching Famotidine 20 mg 12/26/24 21:00 12/26/24 21:24 Famotidine 20 Mg Tablet PO 20 mg Q12HR LULA Administration Hydrochlorothiazide 25 mg 12/27/24 09:00 Hydrochlorothiazide 25 Mg Tablet PO QAM LULA Cefazolin Sodium 2 gm in 50 mls @ 100 mls/hr 12/26/24 20:00 12/27/24 05:17 Ancef 2 Gm/D5w 50 Ml IVPB 12/27/24 12:29 Infused Q8H LULA Infusion Vancomycin HCl 1,000 mg in 250 mls @ 250 mls/hr 12/26/24 22:00 12/26/24 22:51 Vancomycin 1,000 Mg/Ns 250 Ml IVPB 12/27/24 10:59 Infused Q12H LULA Infusion Loratadine 10 mg 12/27/24 09:00 Loratadine 10 Mg Tablet PO QAM LULA Losartan Potassium 25 mg 12/27/24 09:00 Losartan Potassium 25 Mg Tablet PO DAILY COUNT INCLUDES THE [facility] Morphine Sulfate 2 mg 12/26/24 16:48 Morphine Sulfate (*Crx) 2 Mg/Ml Inj IV PUSH Q2H PRN Breakthrough Pain Rated 4-6 or NPO Naloxone HCl 0.1 mg 12/26/24 16:48 Naloxone Hcl 0.4 Mg/Ml Vial IV PUSH Q2M PRN Opiate Reversal Ondansetron HCl 4 mg 12/26/24 16:48 Ondansetron Inj 4 Mg/2 Ml Vial IV PUSH Q4H PRN Nausea And Vomiting Oxycodone HCl 5 mg 12/26/24 17:00 12/27/24 05:22 Oxycodone Hcl (*Crx) 5 Mg Tab Ir PO 5 mg Q4HR LULA Administration Oxycodone HCl 5 mg 12/26/24 16:48 Oxycodone Hcl (*Crx) 5 Mg Tab Ir PO Q4H PRN Pain Rated 7-10 Pantoprazole Sodium 40 mg 12/27/24 09:00 Pantoprazole 40 Mg Tablet PO QAM COUNT INCLUDES THE [facility] Polyethylene Glycol 17 gm 12/27/24 09:00 Polyethylene Glycol 3350 17 Gm Powd.Pack PO QAM COUNT INCLUDES THE [facility] Potassium Chloride 20 meq 12/27/24 09:00 Potassium Chloride 20 Meq Er Tablet PO DAILY COUNT INCLUDES THE [facility] Senna/Docusate Sodium 2 tab 12/26/24 17:00 12/26/24 18:19 Senna/Docusate Sodium Tablet PO 2 tab BID COUNT INCLUDES THE [facility] Administration Simvastatin 40 mg 12/26/24 21:00 12/26/24 21:24 Simvastatin 20 Mg Tablet PO 40 mg QHS COUNT INCLUDES THE [facility] Administration Vitamin D 2,000 units 12/27/24 09:00 Cholecalciferol 1,000 Units Tablet PO DAILY COUNT INCLUDES THE [facility] Radiology Results: ITS Impressions Knee X-Ray 12/26/24 15:00 IMPRESSION: 1. Recent left total knee arthroplasty.
[2024-12-27 07:36] LABS: Hemoglobin 10.4 g/dL (12.0-15.0); Mean Corpuscular HGB Conc 31.5 g/dl (32-36); Mean Corpuscular Hemoglobin 29.2 pg (26-34); Mean Corpuscular Volume 92.7 fl (80-100); Mean Platelet Volume 10.5 fl (7.4-10.4); Platelet Count Result 309 k/mm3 (150-375); Red Blood Count 3.56 M/mm3 (4.2-5.4); Red Cell Distribution Width 13.6 % (11.5-14.5); White Blood Count 16.4 K/mm3 (4.5-10.0)
[2024-12-27 07:37] LABS: Alanine Aminotransferase 21 U/L (6-35); Albumin Level 3.8 g/dL (3.5-5.1); Alkaline Phosphatase 52 U/L (38-126); Anion Gap 12 mmol/L (4-12); Aspartate Amino Transferase 27 U/L (14-36); Bilirubin,Total 0.6 mg/dL (0.2-1.3); Blood Urea Nitrogen 15 mg/dL (7-17); Calcium 8.3 mg/dL (8.4-10.2); Carbon Dioxide 25 mmol/L (22-30); Chloride 99 mmol/L (98-107); Estimated CRCL calculation 64 ml/min; Estimated Glomerular Filt Rate > 60; Glucose 136 mg/dL (65-110); Magnesium 1.5 mg/dL (1.6-2.3); Potassium 3.7 mmol/L (3.4-5.0); Sodium 136 mmol/L (137-145)
[2024-12-27 08:22] LABS: Band Neutrophils Percent 0 % (0-6); Basophils Percent Manual 0 % (0-1); Eosinophils Percent Manual 0 % (0-4); Lymphocytes Absolute Manual 0.65 K/mm3 (1.1-4.5); Lymphocytes Percent Manual 4 % (18-44); Monocytes Absolute Manual 0.16 K/mm3 (0.1-0.90); Monocytes Percent Manual 1 % (3-9); Neutrophils Absolute Manual 15.58 K/mm3 (1.7-7.2); Neutrophils Percent Manual 95 % (46-73); Platelet Estimate Adequate (Adequate); Total Cells Counted 100
[2024-12-27 08:23] LABS: Schistocytes None Seen
[2024-12-27] MEDS: CELECOXIB 100 MG CAPSULE PO (09:21)
[2024-12-27] MEDS: polyethylene glycoL 3350 17 GM POWD.PACK PO (09:21)
[2024-12-27] MEDS: CHOLECALCIFEROL 1,000 UNITS TABLET 2000 UNITS PO (09:22)
[2024-12-27] MEDS: APIXABAN 2.5 MG TABLET PO (09:22)
[2024-12-27] MEDS: SENNA/DOCUSATE SODIUM TABLET 2 TAB PO (09:22)
[2024-12-27] MEDS: PANTOPRAZOLE 40 MG TABLET PO (09:23)
[2024-12-27] MEDS: POTASSIUM CHLORIDE 20 MEQ ER TABLET PO (09:24)
[2024-12-27 10:33] VITALS: BP 99/56; PULSE 91; RESP 18; TEMP 37.7; O2SAT 90
[2024-12-27] MEDS: VANCOMYCIN 1,000 MG/NS 250 ML 1,000 MG/250 ML BAG 250 MG IVPB (11:03)
--- NOTE | 2024-12-27 16:22 | PCPTNOTE ---
On 12/27/24, the student, DARÍO Rick, provided care and completed [facility] documentation on this patient. I have reviewed the student's documentation and agree with the findings.
== END 2024-12-27 14:10 | disposition home or self-care (01) ==
LOC: ANHSURGERY 10:31 → ANH3MEDSUR 16:50
PROVIDERS: Orthopaedic Surgery; Physician Assistant; Physician Assistant Surgical; PCP Family Medicine; Visit Provider Nurse Practitioner Family
PROC: (CPT 27447; principal; 2024-12-26 11:00)
DX: M17.0 Bilateral primary osteoarthritis of knee (principal); M94.262 Chondromalacia, left knee; M25.762 Osteophyte, left knee; E78.5 Hyperlipidemia, unspecified; I10 Essential (primary) hypertension; K21.9 Gastro-esophageal reflux disease without esophagitis; E55.9 Vitamin D deficiency, unspecified; L40.9 Psoriasis, unspecified; L71.9 Rosacea, unspecified; E66.9 Obesity, unspecified; Z68.30 Body mass index [BMI] 30.0-30.9, adult; Z98.890 Other specified postprocedural states; Z98.51 Tubal ligation status; Z87.891 Personal history of nicotine dependence; Z80.1 Family history of malignant neoplasm of trachea, bronchus and lung
CPT/HCPCS: 27447; 20610; 36415; 73560; 80048; 80076; 83735; 85025; 97110; 97116; 97161; 97165; A9270; C1713; C1776; J0171; J0360; J0690; J1010; J1100; J1885; J2003; J2250; J2270; J2405; J2550; J2704; J2795; J3010; J3370; J7030; J7120

== ENCOUNTER 2024-12-30 09:58 | Outpatient (RCR) | payer MEDICARE, SELFPAY ==
--- NOTE | 2024-12-27 14:15 | WPDANESPN ---
Anes - Prog Note Post-Op Date/Time: 12/27/24 14:15 Cardiovascular status: normal Respiratory status: normal Airway patency: baseline Mental status: baseline Post-Op hydration status: normal Pain Score (VAS): 0 Post-procedural complaints: none Patient Feedback: Patient satisfied with anesthetic care.
--- NOTE | 2024-12-30 10:54 | PTOPEVAL1 ---
Assessment and note entered by Mark Alexander Evaluation Information Assessment Status Evaluation Diagnosis L TKA ICD-10 Condition Codes (PT) Aftercare following joint replacement surgery Z47. 1 Onset 12/26/24 Subjective Information Pt. reports she underwent left TKA on 12/27/24. She states that she returned home the next day. she states that she is currently using a walker. She states that sleep is difficulty. she is exercising, but not as often as requested by her doctor. She states that before surgery she was independent with all IADL's. She reports that her goal is to be able to return to walking normal and return to driving. Reported Pain Level Pain Score 3: Self Report Assessment PT Clinical Summary Pt. is a 69 year old female who enters the clinic with a diagnosis of L TKA. she presents with edema, impaired ROM, impaired strength, impaired gait and functional decline. Continued skilled PT is indicated in order to improve these to allow the pt. to achieve her goal of normal gait and returning to IADL's Plan of Care Interventions Electrical Stimulation,Gait Training,Intermittent Compression Pump,Manual Therapy,Neuro Re-education ,Patient/Caregiver Education,Therapeutic Activities,Therapeutic Exercise PT Services Indicated Yes Treatment Frequency and 2x/week x 10 visits Duration These treatments will address the objective and functional deficits as defined above. The patient will be advanced safely and appropriately in order for the patient to progress towards his/her prior level of function. Additional exercises will be introduced and as well as a comprehensive home exercise program upon discharge, if needed, ?to ensure carryover of functional gains achieved in the clinic. This treatment plan has been reviewed and agreement upon by the patient.
--- NOTE | 2024-12-30 10:55 | OPREHPOC ---
Outpatient Therapy Plan of Care This is a Multidisciplinary Plan of Care that may contain components documented by all disciplines (PT, OT, and ST.) PT Problem 1 PT Problem #1 Knowledge Deficit PT Goal 1 Goal / Goal Update Independent with a HEP addressing strength and mobility. Target Visit 2 PT Problem 2 PT Problem #2 Edema PT Goal 1 Goal / Goal Update Reduce edema at the knee joint line to 47cm in order to improve mobility. Target Visit 12 PT Problem 3 PT Problem #3 Impaired Gait PT Goal 1 Goal / Goal Update Pt. will ambulate without an AD demonstrating equal right and left stance time for 6 minute over a distance of 1000'. PT Problem 4 PT Problem #4 Impaired Range of Motion PT Goal 1 Goal / Goal Update Pt. will achieve 0-125 degrees left knee active ROM. PT Problem 5 PT Problem #5 Impaired Functional Mobility PT Goal 1 Goal / Goal Update Pt. will return to driving.
--- NOTE | 2025-02-07 07:46 | OPREHPOC ---
Outpatient Therapy Plan of Care This is a Multidisciplinary Plan of Care that may contain components documented by all disciplines (PT, OT, and ST.) PT Problem 1 PT Problem #1 Knowledge Deficit PT Goal 1 Goal / Goal Update Independent with a HEP addressing strength and mobility. Target Visit 2 Progress Met PT Problem 2 PT Problem #2 Edema PT Goal 1 Goal / Goal Update Reduce edema at the knee joint line to 47cm in order to improve mobility. Target Visit 12 Progress Met PT Problem 3 PT Problem #3 Impaired Gait PT Goal 1 Goal / Goal Update Pt. will ambulate without an AD demonstrating equal right and left stance time for 6 minute over a distance of 1000'. Progress Met PT Problem 4 PT Problem #4 Impaired Range of Motion PT Goal 1 Goal / Goal Update Pt. will achieve 0-125 degrees left knee active ROM. Progress Met PT Problem 5 PT Problem #5 Impaired Functional Mobility PT Goal 1 Goal / Goal Update Pt. will return to driving. Progress Met
--- NOTE | 2025-02-07 07:46 | PTOPDC ---
Assessment and note entered by JT File, PT Evaluation Information Assessment Status Discharge Diagnosis L TKA ICD-10 Condition Codes (PT) Aftercare following joint replacement surgery Z47. 1 Onset 12/26/24 Subjective Information patient reports she just saw the surgeon yesterday . she reports he is very pleased with her knee, and says she can be DC'd from therapy. Assessment PT Clinical Summary mrs. dover returns to skilled PT 1 day after her follow up with her surgeon. she has met all goals for skilled PT as of this date, and was given the approval to DC skilled PT. she will be DC'd today , and will continue HEP independent at home. Plan of Care PT Services Indicated Yes
== END 2025-01-23 20:00 | disposition home or self-care (01) ==
LOC: CHSPT 09:58
PROVIDERS: Visit Provider Orthopaedic Surgery
DX: M17.12 Unilateral primary osteoarthritis, left knee (principal); Z96.652 Presence of left artificial knee joint
CPT/HCPCS: 97110; 97112; 97116; 97161; 97530

== ENCOUNTER 2025-02-27 09:46 | Outpatient (CLI) | payer MEDICARE, SELFPAY ==
[2025-02-27 11:24] LABS: Basophils Absolute Auto 0.1 K/mm3 (0.0-0.1); Basophils Percent Auto 0.8 % (0.2-1.2); Eosinophils Absolute Auto 0.1 K/mm3 (0-0.3); Hematocrit 41.2 % (37.0-47.0); Hemoglobin 12.9 g/dL (12.0-15.0); Immature Granulocyte Absolute 0.02 K/mm3 (0.00-0.031); Immature Granulocyte Percent A 0.3 % (0-0.5); Lymphocytes Absolute Auto 2.47 K/mm3 (0.9-3.2); Lymphocytes Percent Auto 38.8 % (18.3-44.2); Mean Corpuscular HGB Conc 31.3 g/dl (32-36); Mean Corpuscular Hemoglobin 29.1 pg (26-34); Mean Corpuscular Volume 92.8 fl (80-100); Mean Platelet Volume 10.5 fl (7.4-10.4); Monocytes Absolute Auto 0.4 K/mm3 (0.1-0.6); Neutrophils Absolute Auto 3.3 K/mm3 (1.3-6.7); Neutrophils Percent Auto 52.1 % (45.5-73.1); Platelet Count Result 344 k/mm3 (150-375); Red Blood Count 4.44 M/mm3 (4.2-5.4); Red Cell Distribution Width 12.7 % (11.5-14.5); White Blood Count 6.4 K/mm3 (4.5-10.0)
[2025-02-27 12:08] LABS: Alanine Aminotransferase 22 U/L (6-35); Albumin Level 4.7 g/dL (3.5-5.1); Alkaline Phosphatase 64 U/L (38-126); Anion Gap 13 mmol/L (4-12); Aspartate Amino Transferase 39 U/L (14-36); Bilirubin,Total 0.7 mg/dL (0.2-1.3); Blood Urea Nitrogen 19 mg/dL (7-17); Calcium 9.4 mg/dL (8.4-10.2); Carbon Dioxide 30 mmol/L (22-30); Chloride 98 mmol/L (98-107); Estimated Glomerular Filt Rate > 60; Glucose 108 mg/dL (65-110); Potassium 4.1 mmol/L (3.4-5.0); Sodium 141 mmol/L (137-145)
[2025-02-27 13:09] LABS: Hemoglobin A1C 5.4 % (<5.7)
== END 2025-02-27 09:47 | disposition home or self-care (01) ==
PROVIDERS: PCP Family Medicine; Visit Provider Family Medicine
DX: R73.03 Prediabetes (principal); I10 Essential (primary) hypertension
CPT/HCPCS: 36415; 80053; 83036; 85025

== ENCOUNTER 2025-05-01 14:22 | Outpatient (CLI) | payer MEDICARE, SELFPAY ==
--- NOTE | ~2025-05-01 | MM_ITS ---
EXAMINATION: MM screening alley BI w alfonso HISTORY: Screening TECHNIQUE: Craniocaudal and mediolateral oblique 3-D tomosynthesis images were obtained and synthetic 2-D images were generated. CAD analysis was submitted and interpreted. COMPARISON: 02/20/2024 through 02/13/2019. BREAST PARENCHYMAL COMPOSITION: There are scattered areas of fibroglandular density. FINDINGS: There is no evidence of suspicious mass, calcification, or architectural distortion to sugg est malignancy in either breast. There has been no suspicious interval change. IMPRESSION: 1. No mammographic evidence of malignancy. 2. Recommend routine screening mammography in one year. BI-RADS Category 1: Negative Reviewed, dictated and finalized at location []
--- OUTSIDE RECORDS SUMMARY | 2025-05-01 15:04 | XMS_ITS | Data Portability ---
Author Organization [place] [email or web address], Main Office Address [address] [place] [address] Care Team Providers Care Vegetable Trimmer Name Role Phone TYE VILLAVICENCIO Primary Care Provider TYE VILLAVICENCIO Referring Provider Assessment Encounter Date Assessment Date Assessment LastModified by Organization Details LastModified Time 03/08/2023 03/08/2023 HPI: Patient returns. It has been 3 months last cortisone injection both. She has moderately severe osteoarthritis knees. Injections continue to give her good relief. She is golt-rjh-fzbtfpt which she feels helps better prescription strength. [...] procedure, administere d by provider 2022 023 [email or web address] In-Office Order, Internal Use Only DO Not Attach Compendium DO Not Attach Compendium, Do Not Delete/merge, 11835 09:04:57 Surgeries None recorded. Imaging None recorded. Medication Orders Kenalog 10 mg/mL suspension for injection [address] [facility] [place], [address], 3 16:20:26 ropivacaine (PF) 5 mg/mL (0.5 %) injection solution [address] [facility] [address] [place], [address], 3 16:20:26 Patient TargetsNo targets recorded. Patient InstructionsNo instructions recorded. Reason for Referral None Reported. Results Created Date Observation Date Name Description Value Unit Range Abnormal Flag Note LastModifiedBy Organization Detail LastModifiedTime 03/09/20 22 XR, knee No observ ation record ed. [id number] [id number] [place] [address], [place], [address], 01/25/2023 08:13:39 Result Notes None recorded. Problems Name Problem SNOMED Code Status Onset Date Resolution Date Notes Provider Name and Address Organization Details Recorded Time Osteoarthr itis 521994482 Active 2021 Not Available [facility] 3 08:08:47 Bilateral osteoarthr itis of knees 1591188410653 07 Active 2022 GIL Calvin, [place] [facility] 3 09:03:34 Problem Notes None recorded. 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 Procedure Notes None recorded. Medical Equipment None [...] suspension for injection in office 2022 active [facility]: 0003- 0494- 20 Not Available Not [...] completed Not Available Not Available Not Available celecoxib 100 mg capsule TAKE 1 CAPSULE BY MOUTH ONCE DAILY AT 8:00 AM active Not Available Not Available No t Available tobramycin 0.3 %-dexametha sone 0.1 % [...] administe red by the provider 03/09 completed [facility]: 0409- 4276- 17 Not Available Not [...] Updated DateTime 12/07/2022 32.3 kg/m2 162.56 cm 95963.37 g Not Available [facility] 01/25/2023 08:06:36 Date Recorded Body height Provider Name an d Address Organization Details Last Updated DateTime 03/08/2023 162.56 cm GIL Calvin [place] [employer] [email or web address] 03/08/2023 09:02:31 Date Recorded Body height Provider Name an d Address Organization Details Last Updated DateTime 03/09/2022 166.37 cm Not Available [facility] 3 08:06:35 Date Recorded Body height Provider Name an d Address Organization Details Last Updated DateTime 06/08/2022 166.37 cm Not Available [facility] 3 08:06:35 Date Recorded Body height Provider Name an d Address Organization Details Last Updated DateTime 09/07/2022 166.37 cm Not Available [facility] 3 08:06:35 Social History Question Answer Notes LastModified by Organizat ion Details LastModified Time Tobacco Smoking Status Never Smoker April busby [place] [employer] [email or web address] 03/08/2023 09:01:28 What Is Your Level Of Caffeine Consumption? None [id number] Information not available 01/25/2023 In The 14 Days Before Symptom Onset, Have You Had Close Contact With A Laboratory-confirm ed COVID-19 While That Case Was Ill? No Information n ot available 03/08/2023 In The 14 Days Before Symptom Onset, Have You Had Close Contact With A Person Who Is Under Investigation For COVID-19 While That Person Was Ill? No [email or web address] Information not available 03/08/2023 Which Illicit Or Recreational Drugs Have You Used? None [email or web address] Information not available 03/08/2023 Sex: Unknown Functional Status Question Answer Note LastModified by Organizat ion Details LastModified Time What is your level of alcohol consumption? 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 Never used electronic cigarettes [email or web address] Information not available 03/08/2023 What is your exercise level? Occasional [id number] Information not available 01/25/2023 Mental Status None recorded. Family History Relationship Description Onset Age of this Age Resolved Age Notes LastModified by Organization Details LastModified Time Mother Diabetes mellitus [id number] Not available 01/25/2023 08:05:07 Mother Hypertensive disorder [id number] Not available 01/25/2023 08:05:07 Father Malignant neoplasm of lung [email or web address] Not available 03/08 09:01:28 Father Family history of malignant neoplasm Not available 03/08 09:01:28 Medical History Condition Response HIGH CHOLESTEROL / HYPERLIPIDEMIA Y SKIN PROBLEMS Y HYPERTENSION Y Gynecological History Statement/Question Response Abnormal Pap [...] 50 mcg/0.25mL dose 01/15/2021 completed Not Available [facility] 3 08:13:17 COVID-19, mRNA, LNP-S, PF, 100 mcg/0.5mL dose or 50 mcg/0.25mL dose 12/17/2020 completed Not Available [facility] 3 08:13:18 Past Encounters Encounter ID Performer Location Encounter Start Date Encounter Closed Date Diagnosis/Indication Diagnosis SNOMED-CT Code Diagnosis ICD10 Code Diagnosis Note [id number] S_[facility] ic[facility] _ATHENA_M IGRATION_ DEFAULT_1 _1 , 03/03/2021 00:00:00 03/03/2021 11:59:44 [id number] Mj Mckinney MD [facility] [place] [address] [place] [address] 12/01/2021 00:00:00 12/01/2021 16:18:33 [id number] Mj Mckinney MD [facility] [place] [address] [place] [address] 03/09/2022 00:00:00 03/09/2022 09:41:49 [id number] Mj Mckinney MD [facility] [place] [address] [place] [address] 06/08/2022 00:00:00 06/08/2022 09:27:51 [id number] Mj Mckinney MD [facility] [place] [address] [place] [address] 09/07/2022 00:00:00 09/07/2022 09:30:00 [id number] Mj Mckinney MD [facility] [place] [address] [place] [address] 12/07/2022 00:00:00 12/07/2022 09:08:52 [id number] Mj Mckinney MD [facility] [place] [address] [place] [address] 03/08/2023 08:59:05 03/08/2023 09:19:32 Bilateral osteoarthritis of knees 3848402137 28019 M17.0 Health Concerns Section Related Observation LastModified by Organization Detai ls LastModified Time None Recorded Concern Status LastModified by Organization Details LastModified Time None Recorded Advance Directives Directive None Recorded Payers Encounter Date Sequence Insurance Name Policy Number Policy Shelley Covered Member ID Shelley Member ID Guarantor Name 03/08/2023 1 [place] Essence Sommers [id number] Essence Sommers 03/08/2023 2 AARP (MEDICARE SUPPLEMENT) Essence Sommers [id number] Essence Sommers OBGyn Episode No OBEpisode recorded.
== END 2025-05-01 14:23 | disposition home or self-care (01) ==
LOC: ANHIMG 14:23
PROVIDERS: PCP Family Medicine; Visit Provider Obstetrics & Gynecology
DX: Z12.31 Encounter for screening mammogram for malignant neoplasm of breast (principal)
CPT/HCPCS: 77063; 77067

== ENCOUNTER 2025-05-15 11:52 | Outpatient (CLI) | payer MEDICARE, SELFPAY ==
--- OUTSIDE RECORDS SUMMARY | 2025-05-15 12:35 | XMS_ITS | Data Portability ---
Author Organization [place] - [email or web address], Main Office Address [address] [place] [address] Care Team Providers Care Cloud Engagement Partner Name Role Phone TYE VILLAVICENCIO Primary Care Provider TYE VILLAVICENCIO Referring Provider [phone] Assessment Encounter Date Assessment Date Assessment LastModified by Organization Details LastModified Time 03/08/2023 03/08/2023 HPI: Patient returns. It has been 3 months last cortisone injection both. She has moderately severe osteoarthritis knees. Injections continue to give her good relief. She is xnln-fsc-dxeprrh which she feels helps better prescription strength. [...] procedure, administere d by provider 2022 023 [email or web address] In-Office Order, Internal Use Only DO Not Attach Compendium DO Not Attach Compendium, Do Not Delete/merge, [id number] 09:04:57 Surgeries None recorded. Imaging None recorded. Medication Orders Kenalog 10 mg/mL suspension for injection [address] [facility] [address] [place], [address], 3 16:20:26 ropivacaine (PF) 5 mg/mL (0.5 %) injection solution [address] [facility] [address] [place], [address], 3 16:20:26 Patient TargetsNo targets recorded. Patient InstructionsNo instructions recorded. Reason for Referral None Reported. Results Created Date Observation Date Name Description Value Unit Range Abnormal Flag Note LastModifiedBy Organization Detail LastModifiedTime 03/09/20 22 XR, knee No observ ation record ed. [id number] [facility] [place] [address], [place], [address], 01/25/2023 08:13:39 Result Notes None recorded. Problems Name Problem SNOMED Code Status Onset Date Resolution Date Notes Provider Name and Address Organization Details Recorded Time Osteoarthr itis 995242040 Active 2021 Not Available [facility] 3 08:08:47 Bilateral osteoarthr itis of knees 2632391641398 07 Active 2022 GIL Calvin, [place] [facility] 3 09:03:34 Problem Notes None recorded. 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 Procedure [...] suspension for injection in office [address] [facility]: 0003- 0494- 20 Not Available Not Available [...] administe red by the provider 03/[address] [facility]: 0409- 4276- 17 Not Available Not Available [...] Updated DateTime 12/07/2022 32.3 kg/m2 162.56 cm 96507.37 g Not Available [facility] 01/25/2023 08:06:36 Date Recorded Body height Provider Name an d Address Organization Details Last Updated DateTime 03/08/2023 162.56 cm GIL Calvin [place] [email or web address] 03/08/2023 09:02:31 Date Recorded Body height Provider Name an d Address Organization Details Last Updated DateTime 03/09/2022 166.37 cm Not Available [facility] 3 08:06:35 Date Recorded Body height Provider Name an d Address Organization Details Last Updated DateTime 06/08/2022 166.37 cm Not Available [facility] 3 08:06:35 Date Recorded Body height Provider Name an d Address Organization Details Last Updated DateTime 09/07/2022 166.37 cm Not Available [facility] 3 08:06:35 Social History Question Answer Notes LastModified by Organizat ion Details LastModified Time Tobacco Smoking Status Never Smoker April busby [place] [email or web address] 03/08/2023 09:01:28 What Is Your Level Of Caffeine Consumption? None [id number] Information not available 01/25/2023 In The 14 Days Before Symptom Onset, Have You Had Close Contact With A Laboratory-confirm ed COVID-19 While That Case Was Ill? No [email or web address] Information n ot available 03/08/2023 In The 14 Days Before Symptom Onset, Have You Had Close Contact With A Person Who Is Under Investigation For COVID-19 While That Person Was Ill? No [email or web address] Information not available 03/08/2023 Which Illicit Or Recreational Drugs Have You Used? None [email or web address] Information not available 03/08/2023 Sex: Unknown Functional Status Question Answer Note LastModified by Organizat ion Details LastModified Time What is your level of alcohol consumption? 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 Never used electronic cigarettes [email or web address] Information not available 03/08/2023 What is your exercise level? Occasional [id number] Information not available 01/25/2023 Mental Status None recorded. Family History Relationship Description Onset Age of this Age Resolved Age Notes LastModified by Organization Details LastModified Time Mother Diabetes mellitus [id number] Not available 01/25/2023 08:05:07 Mother Hypertensive disorder [id number] Not available 01/25/2023 08:05:07 Father Malignant neoplasm of lung [email or web address] Not available 03/08 09:01:28 Father Family history [...] 50 mcg/0.25mL dose 01/15/2021 completed Not Available [facility] 3 08:13:17 COVID-19, mRNA, LNP-S, PF, 100 mcg/0.5mL dose or 50 mcg/0.25mL dose 12/17/2020 completed Not Available [facility] 3 08:13:18 Past Encounters Encounter ID Performer Location Encounter Start Date Encounter Closed Date Diagnosis/Indication Diagnosis SNOMED-CT Code Diagnosis ICD10 Code Diagnosis Note [id number] S_Histor ic[facility] _ATHENA_M IGRATION_ DEFAULT_1 _1 , 03/03/2021 00:00:00 03/03/2021 11:59:44 [id number] Mj Mckinney MD [facility] [place] [address] [place] [address] 12/01/2021 00:00:00 12/01/2021 16:18:33 [id number] Mj Mckinney MD [facility] [place] [address] [place] [address] 03/09/2022 00:00:00 03/09/2022 09:41:49 [id number] Mj Mckinney MD [facility] [place] [address] [place] [address] 06/08/2022 00:00:00 06/08/2022 09:27:51 [id number] Mj Mckinney MD [facility] [place] [address] [place] [address] 09/07/2022 00:00:00 09/07/2022 09:30:00 [id number] Mj Mckinney MD [facility] [place] [address] [place] [address] 12/07/2022 00:00:00 12/07/2022 09:08:52 [id number] Mj Mckinney MD [facility] [place] [address] [place] [address] 03/08/2023 08:59:05 03/08/2023 09:19:32 Bilateral osteoarthritis of knees 7639858419 63242 M17.0 Health Concerns Section Related Observation LastModified by Organization Detai ls LastModified Time None Recorded Concern Status LastModified by Organization Details LastModified Time None Recorded Advance Directives Directive None Recorded Payers Insurance Date Sequence Insurance Name Policy Number Policy Shelley Covered Member ID Shelley Member ID Guarantor Name 03/08/2023 1 [place] Essence Sommers [id number] Essence Sommers 03/08/2023 2 AARP (MEDICARE SUPPLEMENT) Essence Sommers [id number] Essence Sommers OBGyn Episode No OBEpisode recorded.
[2025-05-15 13:27] LABS: Basophils Absolute Auto 0.1 K/mm3 (0.0-0.1); Basophils Percent Auto 0.6 % (0.2-1.2); Eosinophils Absolute Auto 0.1 K/mm3 (0-0.3); Eosinophils Percent Auto 0.9 % (0-4.4); Hematocrit 39.4 % (37.0-47.0); Hemoglobin 12.4 g/dL (12.0-15.0); Immature Granulocyte Absolute 0.03 K/mm3 (0.00-0.031); Immature Granulocyte Percent A 0.3 % (0-0.5); Lymphocytes Absolute Auto 2.74 K/mm3 (0.9-3.2); Mean Corpuscular HGB Conc 31.5 g/dl (32-36); Mean Corpuscular Hemoglobin 28.8 pg (26-34); Mean Corpuscular Volume 91.6 fl (80-100); Mean Platelet Volume 9.2 fl (7.4-10.4); Monocytes Absolute Auto 0.5 K/mm3 (0.1-0.6); Monocytes Percent Auto 5.3 % (2.6-8.5); Neutrophils Absolute Auto 5.5 K/mm3 (1.3-6.7); Neutrophils Percent Auto 61.9 % (45.5-73.1); Platelet Count Result 380 k/mm3 (150-375); Red Cell Distribution Width 13.2 % (11.5-14.5); White Blood Count 8.8 K/mm3 (4.5-10.0)
[2025-05-15 13:37] LABS: Albumin Level 4.7 g/dL (3.5-5.1); Anion Gap 9 mmol/L (4-12); Blood Urea Nitrogen 17 mg/dL (7-17); Calcium 9.9 mg/dL (8.4-10.2); Carbon Dioxide 29 mmol/L (22-30); Chloride 100 mmol/L (98-107); Estimated Glomerular Filt Rate > 60; Glucose 99 mg/dL (65-110); Potassium 3.6 mmol/L (3.4-5.0); Sodium 138 mmol/L (137-145)
[2025-05-15 13:40] LABS: Urine Cotinine NEGATIVE
[2025-05-15 13:49] LABS: Hemoglobin A1C 5.6 % (<5.7)
== END 2025-05-15 11:53 | disposition home or self-care (01) ==
LOC: ANHSURGERY 11:56
PROVIDERS: PCP Family Medicine; Visit Provider Orthopaedic Surgery
DX: M17.11 Unilateral primary osteoarthritis, right knee (principal); Z01.818 Encounter for other preprocedural examination
CPT/HCPCS: 80048; 80307; 82040; 83036; 85025; 87081

== ENCOUNTER 2025-06-05 01:31 | Day surgery (SDC) | payer MEDICARE, SELFPAY ==
--- NOTE | 2025-05-15 11:58 | PC.NURSE ---
Report to the Outpatient Waiting Room, entrance under the green pavilion located off [facility], at time _9:30 AM on date _06/05/25 . Planned Procedure Time: __11:30 AM .? Time changes happen often and if your time is changed the preop area will call you the afternoon before. - You and your visitor will be asked to self-screen and do not enter if you have any COVID symptoms. Please call surgeon if you need to reschedule. - A mask is optional within the hospital at this time. Patients may have clear liquids (water, carbonated beverages, clear teas, apple juice) until 3 hours prior to surgery ( 8:30 AM) with a maximum of 20 ounces. - No food from midnight until time of surgery and no smoking, or chewing tobacco (or any form of nicotine). No chewing gum, candy or mints. Take only the following medications with a SIP of water on the morning of surgery: NONE DO NOT STOP ANY OF YOUR OTHER PRESCRIPTION MEDICATIONS PRIOR TO SURGERY EXCEPT THE FOLLOWING Hold all vitamins and supplements for 3 days per anesthesiologist.LAST DOSE 06/01/25 Medications to discontinue per physician NONE MAY TAKE TYLENOL IF NEEDED FOR PAIN Please no make-up, nail occitan, hairspray, perfume, deodorant, or body powder the day of surgery.? No jewelry (including any body piercings) or valuables the day of surgery, leave them at home.? Please take a shower or bath the night before, or the morning of, surgery with an antibacterial soap.? Wear comfortable, loose fitting clothing.? Children are encouraged to wear pajamas. - Jewelry must be removed prior to entering the operating room.? Rings and piercings that are not removed may be cut off. - The hospital will not accept responsibility for valuables.? - Please leave all valuables, including medications, at home the day of surgery. If you are going home after surgery, a licensed commercial relief driver must drive you home.? - NO public transportation without another adult if you receive anesthesia. - We recommend that an adult stay with you for 24 hours following discharge. - We also recommend that you do not drive, make important decision, drink alcoholic beverages, or take any drugs that were not prescribed by your health care provider for at least 24 hours after your discharge time. For Pediatric surgeries, we recommend two adults accompany the child home. Follow any additional instructions given to you from your surgeon. VERBAL AND WRITTEN instructions given to ___PATIENT and asked if any additional questions and then verbalized understanding. Patient advised to call surgeon office or pre surgery nurse liaison [phone] if any additional questions.
[2025-05-15 12:00] VITALS: BMI 32.1
[2025-05-15 12:39] VITALS: BP 149/80; PULSE 85; RESP 18; TEMP 37.1; O2SAT 97
--- NOTE | 2025-06-04 15:54 | PM.IMHP ---
H&P: HPI History of Present Illness Date/Time: 06/04/25 15:54 Chief Complaint: Right knee DJD Narrative: 70-year-old female who presents today for a right total knee arthroplasty. She had her left total knee arthroplasty done in November this year. She had and uneventful recovery in overall excellent results. Patient is very happy with her left total knee. Her right knee continues to be very symptomatic. She has severe medial compartment osteoarthritis. She feels that she has recovered well from her left total knee and is ready proceed the right. Review of Systems Review of Systems: All systems reviewed & are unremarkable except as noted in HPI and below PMFSH Past Medical History Medical History Second degree AV block (~11/2024) Seasonal allergies Osteoarthritis Abnormal mammogram 06-23-2021 left breast asymmetries Dx mamm and US done 08/30/2021 probably Benign recommend 6 month f/u dx mamm and US Left breast mass Rosacea Psoriasis Vitamin D deficiency Essential (primary) hypertension GERD without esophagitis Dyslipidemia Surgical History Surgical History History of arthroplasty of left knee (12/26/24) History of wisdom tooth extraction (1981) History of tubal ligation (12/26/91) Family History Family History Father Family history of lung cancer Mother Diabetes mellitus Hypertension Social History Social History (Updated 03/26/25 @ 12:54 by Cha Monique CMA) Social History: Surrogate medical decision maker: Oleg Amoskathia, spouse. Code status: Full code. Smoking packs per day: 1 Smoking cigarettes per day: 20.0 Years smoked: 10 Smoking pack-years: 10.00 Smoking status: Former smoker Tobacco type: cigarettes Second hand tobacco smoke exposure: No Smoking end date: 11/27/83 Additional smoking assessment comments: DENIES ANY FORM OF TOBACCO USE Alcohol intake: current Alcohol use details: consumes 3 beers or glasses of wine occasionally Substance use: never Substance use type: does not use Current Housing: Decline to Answer Concerned About Future Housing: Decline to Answer Difficulty Paying Gas/Electric Bills: Decline to Answer Difficulty Paying for Meds: Decline to Answer Currently Unemployed: Decline to Answer Education: Decline to Answer Difficulty w/ Childcare or Family Care: Decline to Answer Living arrangements: with family Additional living arrangements comments: Lives with spouse in [place]. Occupation/Education: retired Spiritual care concerns: No Agree to blood products: Yes Meds Home Medications and Allergies Home Medications ?Medication ?Instructions ?Recorded ?Confirmed ?Type cholecalciferol (vitamin D3) 50 50 mcg PO DAILY 06/02/20 05/29/25 History mcg (2,000 unit) capsule (D3-1999) loratadine 10 mg tablet (Claritin) 10 mg PO DAILY #30 tabs 02/25/25 05/29/25 Rx omeprazole 20 mg capsule,delayed See Rx Instructions .Route 03/11/25 05/29/25 Rx release .COMPLEX #90 caps hydrochlorothiazide 25 mg tablet 25 mg PO QAM #90 tabs 04/14/25 05/29/25 Rx potassium chloride 20 mEq 20 meq PO DAILY #90 tabs 04/14/25 05/29/25 Rx tablet,extended release losartan 25 mg tablet 25 mg PO DAILY #90 tabs 04/25/25 05/29/25 Rx simvastatin 40 mg tablet 40 mg PO QHS #90 tabs 05/06/25 05/29/25 Rx acetaminophen 500 mg tablet 1,000 mg PO PRN PRN pain 05/15/25 05/29/25 History (Acetaminophen Pain Relief) Allergies Allergy/AdvReac Type Severity Reaction Status Date / Time No Known Allergies Allergy Verified 05/15/25 12:01 Exam Narrative: 70-year-old female she is 5 ft 4 187 lb BMI is 31.1. Right knee range of motion is from 5-130 degrees. She has trace effusion. Moderate tenderness over the medial joint line to palpation. Normal stability in the knee. Hip range of motion is full without discomfort, negative Stinchfield maneuver. Normal quad strength. 2+ dorsalis pedis and posterior tibial artery pulse palpable. No edema in lower extremities. She has normal sensation both lower extremities. Resp: Auscultation: clear to auscultation bilaterally Cardio: Rate: regular rate Rhythm: regular rhythm Assessment and Plan Assessment and plan (1) Primary osteoarthritis of right knee: Code(s): M17.11 - Unilateral primary osteoarthritis, right knee Status: Acute Assessment and Plan: 70-year-old female who has severe medial compartment osteoarthritis in the right knee with continued symptoms. She did very well with her left total knee and feels she is ready proceed with the right. Surgical procedures well as the risks and complications were discussed questions were answered and we will proceed. Patient will avoid any aspirin ibuprofen products and her leave 1 week prior to surgery. Patient's nasal swab was negative. Hemoglobin 12.4 platelets were 380. Chem panel is all within normal limits creatinine 0.89
[2025-06-05] VITALS (16 sets, daily range): BP systolic 108–138; BP diastolic 58–77; PULSE 80–102; RESP 12–16; TEMP 36.4–37.4; O2SAT 90–99
--- NOTE | ~2025-06-05 | XR_ITS ---
EXAMINATION: [id number] DATE: 06/05/2025 11:56 INDICATION: Postoperative evaluation following right total knee arthroplasty. TECHNIQUE: Anteroposterior and lateral views of the right knee were obtained. COMPARISON: None. FINDINGS: Right total knee arthroplasty without patellar resurfacing appears well seated and in near anatomic a lignment. No fractures identified. Expected postoperative subcutaneous and intra-articular gas. IMPRESSION: 1. Right total knee arthroplasty, negative for postoperative purposes. Reviewed, dictated and finalized at location A.
--- OUTSIDE RECORDS SUMMARY | 2025-06-05 01:38 | XMS_ITS | Data Portability ---
Author Organization [place] [facility] [place] [employer], Main Office Address [address] [place] [address] Care Team Providers Care Beer Still Runner Compounder Name Role Phone TYE VILLAVICENCIO Primary Care Provider TYE VILLAVICENCIO Referring Provider [phone] Assessment Encounter Date Assessment Date Assessment LastModified by Organization Details LastModified Time 03/08/2023 03/08/2023 HPI: Patient returns. It has been 3 months last cortisone injection both. She has moderately severe osteoarthritis knees. Injections continue to give her good relief. She is [id number] which she feels helps better prescription strength. [...] procedure, administere d by provider 2022 023 [email or web address] In-Office Order, Internal Use Only DO Not Attach Compendium DO Not Attach Compendium, Do Not Delete/merge, [id number] 09:04:57 Surgeries None recorded. Imaging None recorded. Medication Orders Kenalog 10 mg/mL suspension for injection [address] [facility] [place], [address], 3 16:20:26 ropivacaine (PF) 5 mg/mL (0.5 %) injection solution [address] [facility] [place], [address], 3 16:20:26 Patient TargetsNo targets recorded. Patient InstructionsNo instructions recorded. Reason for Referral None Reported. Results Created Date Observation Date Name Description Value Unit Range Abnormal Flag Note LastModifiedBy Organization Detail LastModifiedTime 03/09/20 22 XR, knee No observ ation record ed. [id number] [address], [place], [address], 01/25/2023 08:13:39 Result Notes None recorded. Problems Name Problem SNOMED Code Status Onset Date Resolution Date Notes Provider Name and Address Organization Details Recorded Time Osteoarthr itis 231837283 Active 2021 Not Available [facility] 3 08:08:47 Bilateral osteoarthr itis of knees 8757004689543 07 Active 2022 GIL Calvin, [place] [employer] [facility] 3 09:03:34 Problem Notes None recorded. Procedures Surgical History Date Name Laterality Status Provider Name and Address Organization Details Recorded Time 06/23/20 21 Most Recent Mammogram completed Not Available [facility] 01/25/2023 08:05:04 02/06/20 19 Date of Last Pap Smear completed Not Available [facility] 01/25/2023 08:05:04 04/16/20 13 Most Recent Bone Density completed Not Available [facility] 01/25/2023 08:05:04 04/27/20 11 Date of Last Colonoscopy completed Not Available [facility] 01/25/2023 08:05:03 12/26/18 92 [employer] Surgery completed Not Available [facility] 01/26/20 08:05:05 Tubal Ligation completed Not Available [facility] 01/25/2023 08:05:05 Imaging Results None recorded. Procedure [...] suspension for injection in office 2022 active [facility]: 0003- 0494- 20 Not Available Not Available [...] administe red by the provider 03/09 completed [facility]: 0409- 4276- 17 Not Available Not Available [...] Updated DateTime 12/07/2022 32.3 kg/m2 162.56 cm 45535.37 g Not Available [facility] 01/25/2023 08:06:36 Date Recorded Body height Provider Name an d Address Organization Details Last Updated DateTime 03/08/2023 162.56 cm GIL Calvin [employer] 03/08/2023 09:02:31 Date Recorded Body height Provider Name an d Address Organization Details Last Updated DateTime 03/09/2022 166.37 cm Not Available [facility] 3 08:06:35 Date Recorded Body height Provider Name an d Address Organization Details Last Updated DateTime 06/08/2022 166.37 cm Not Available [facility] 3 08:06:35 Date Recorded Body height Provider Name an d Address Organization Details Last Updated DateTime 09/07/2022 166.37 cm Not Available [facility] 3 08:06:35 Social History Question Answer Notes LastModified by Organizat ion Details LastModified Time Tobacco Smoking Status Never Smoker April busby, [place] [employer] [facility] [employer] 03/08/2023 09:01:28 What Is Your Level Of Caffeine Consumption? None [id number] Information not available 01/25/2023 In The 14 Days Before Symptom Onset, Have You Had Close Contact With A Laboratory-confirm ed COVID-19 While That Case Was Ill? No [email or web address] Information n ot available 03/08/2023 In The 14 Days Before Symptom Onset, Have You Had Close Contact With A Person Who Is Under Investigation For COVID-19 While That Person Was Ill? No [email or web address] Information not available 03/08/2023 Which Illicit Or Recreational Drugs Have You Used? None [email or web address] Information not available 03/08/2023 Sex: Unknown Functional Status Question Answer Note LastModified by Organizat ion Details LastModified Time What is your level of alcohol consumption? 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 Never used electronic cigarettes [email or web address] Information not available 03/08/2023 What is your exercise level? Occasional [id number] Information not available 01/25/2023 Mental Status None recorded. Family History Relationship Description Onset Age of this Age Resolved Age Notes LastModified by Organization Details LastModified Time Mother Diabetes mellitus [id number] Not available 01/25/2023 08:05:07 Mother Hypertensive disorder [id number] Not available 01/25/2023 08:05:07 Father Malignant neoplasm of lung [email or web address] Not available 03/08 09:01:28 Father Family history of malignant neoplasm [email or web address] Not available 03/08 09:01:28 Medical History Condition [...] 50 mcg/0.25mL dose 01/15/2021 completed Not Available [facility] 3 08:13:17 COVID-19, mRNA, LNP-S, PF, 100 mcg/0.5mL dose or 50 mcg/0.25mL dose 12/17/2020 completed Not Available [facility] 3 08:13:18 Past Encounters Encounter ID Performer Location Encounter Start Date Encounter Closed Date Diagnosis/Indication Diagnosis SNOMED-CT Code Diagnosis ICD10 Code Diagnosis Note [id number] S_[facility] ic_[facility] _ATHENA_M IGRATION_ DEFAULT_1 _1 , 03/03/2021 00:00:00 03/03/2021 11:59:44 [id number] Mj Mckinney MD [facility] [address] [place] [address] 12/01/2021 00:00:00 12/01/2021 16:18:33 [id number] Mj Mckinney MD [facility] [address] [place] [address] 03/09/2022 00:00:00 03/09/2022 09:41:49 [id number] Mj Mckinney MD [facility] [address] [place] [address] 06/08/2022 00:00:00 06/08/2022 09:27:51 [id number] Mj Mckinney MD [facility] [address] [place] [address] 09/07/2022 00:00:00 09/07/2022 09:30:00 [id number] Mj Mckinney MD [facility] [address] [place] [address] 12/07/2022 00:00:00 12/07/2022 09:08:52 [id number] Mj Mckinney MD [facility] [address] [place] [address] 03/08/2023 08:59:05 03/08/2023 09:19:32 Bilateral osteoarthritis of knees [id number] 14061 M17.0 Health Concerns Section Related Observation LastModified by Organization Detai ls LastModified Time None Recorded Concern Status LastModified by Organization Details LastModified Time None Recorded Advance Directives Directive None Recorded Payers Insurance Date Sequence Insurance Name Policy Number Policy Shelley Covered Member ID Shelley Member ID Guarantor Name 03/08/2023 1 [place] Essence Sommers [id number] Essence Sommers 03/08/2023 2 AARP (MEDICARE SUPPLEMENT) Essence Sommers [id number] Essence Sommers OBGyn Episode No OBEpisode recorded.
--- NOTE | 2025-06-05 08:28 | P.PNAN_ITS ---
Anes - Initial Pre Proc Eval Procedure: Operation Date: 06/05/25 11:30 Proposed Procedures p Right Total Knee Arthroplasty - Mj Mckinney MD Date/Time: 06/05/25 08:28 Surgeon: Mj Mckinney MD Pre Op Diagnosis: OA right knee Patient Data Age: 70 Gender: F Height: 1.63 m Weight: 84.9 kg Last Vital Signs Temp 37.1 C 05/15/25 12:39 Pulse 85 05/15/25 12:39 Resp 18 05/15/25 12:39 BP 149/80 H 05/15/25 12:39 Pulse Ox 97 05/15/25 12:39 O2 Del Method Room Air 05/15/25 12:39 Allergies Allergy/AdvReac Type Severity Reaction Status Date / Time No Known Allergies Allergy Verified 05/15/25 12:01 Home Medications ?Medication ?Instructions ?Recorded ?Confirmed ?Type cholecalciferol (vitamin D3) 50 50 mcg PO DAILY 06/02/20 05/29/25 History mcg (2,000 unit) capsule (D3) loratadine 10 mg tablet (Claritin) 10 mg PO DAILY #30 tabs 02/25/25 05/29/25 Rx omeprazole 20 mg capsule,delayed See Rx Instructions .Route 03/11/25 05/29/25 Rx release .COMPLEX #90 caps hydrochlorothiazide 25 mg tablet 25 mg PO QAM #90 tabs 04/14/25 05/29/25 Rx potassium chloride 20 mEq 20 meq PO DAILY #90 tabs 04/14/25 05/29/25 Rx tablet,extended release losartan 25 mg tablet 25 mg PO DAILY #90 tabs 04/25/25 05/29/25 Rx simvastatin 40 mg tablet 40 mg PO QHS #90 tabs 05/06/25 05/29/25 Rx acetaminophen 500 mg tablet 1,000 mg PO PRN PRN pain 05/15/25 05/29/25 History (Acetaminophen Pain Relief) Patient hx anesthesia problems: none Family hx anesthesia problems: none Results Review: All pre-operative results and documents have been reviewed as part of the pre- operative evaluation. [facility] Past Medical History Medical History Second degree AV block (~11/2024) Seasonal allergies Osteoarthritis Abnormal mammogram 06-23-2021 left breast asymmetries Dx mamm and US done 08/30/2021 probably Benign recommend 6 month f/u dx mamm and US Left breast mass Rosacea Psoriasis Vitamin D deficiency Essential (primary) hypertension GERD without esophagitis Dyslipidemia Surgical History Surgical History History of arthroplasty of left knee (12/26/24) History of wisdom tooth extraction (1981) History of tubal ligation (12/26/91) Family History Family History Father Family history of lung cancer Mother Diabetes mellitus Hypertension Social History Social History Social History: Surrogate medical decision maker: Oleg Amoskathia, spouse. Code status: Full code. Smoking packs per day: 1 Smoking cigarettes per day: 20.0 Years smoked: 10 Smoking pack-years: 10.00 Smoking status: Former smoker Tobacco type: cigarettes Second hand tobacco smoke exposure: No Smoking end date: 11/27/83 Additional smoking assessment comments: DENIES ANY FORM OF TOBACCO USE Alcohol intake: current Alcohol use details: consumes 3 beers or glasses of wine occasionally Substance use: never Substance use type: does not use Current Housing: Decline to Answer Concerned About Future Housing: Decline to Answer Difficulty Paying Gas/Electric Bills: Decline to Answer Difficulty Paying for Meds: Decline to Answer Currently Unemployed: Decline to Answer Education: Decline to Answer Difficulty w/ Childcare or Family Care: Decline to Answer Living arrangements: with family Additional living arrangements comments: Lives with spouse in [place]. Occupation/Education: retired Spiritual care concerns: No Agree to blood products: Yes Anes - Eval Final PreProcedure Day of Procedure 06/05/25 08:28 Patient weight: obese Heart: regular rate and rhythm Lungs: clear to auscultation Airway: Mallampati scale class II Neurological: alert and oriented Last oral intake: >/= 8 hours ASA classification: III Emergent: no Anesthetic plan: proceed Anesthesia type and monitoring: general ETT and standard monitoring Results Review: All pre-operative results and documents have been reviewed as part of the pre- operative evaluation. Informed Consent: The patient's anesthetic plan and its attendant risks and benefits were discussed with the patient/family/POA. Questions were solicited and answers provided to the satisfaction of the patient/family/POA.
--- NOTE | 2025-06-05 08:44 | WPDHPUPDATE1 ---
History and Physical Update Update Date/Time: 06/05/25 08:44 History and Physical has been reviewed, including an updated exam of the patient. There are NO changes in the patient's condition. Risks, benefits, and alternatives have been discussed and questions answered. Patient agrees to proceed with procedure.
[2025-06-05] MEDS: LACTATED RINGERS 1,000 ML 30 ML IV CONT ×2 (08:45→11:56)
[2025-06-05] MEDS: ACETAMINOPHEN 500 MG TABLET 1000 MG PO (08:45)
[2025-06-05] MEDS: VANCOMYCIN 1,250 MG/NS 250 ML BAG 166.67 MG IVPB (08:45)
[2025-06-05] MEDS: SCOPOLAMINE 1 MG PATCH 1 PATCH TRANSDERM (08:45)
[2025-06-05] MEDS: TRANEXAMIC ACID 1,000MG/ISO100 1,000 MG/100 ML BAG 200 MG IVPB (08:45)
[2025-06-05] MEDS: ceFAZolin 2 GM in SODIUM CHLORIDE 0.9% IV 50 ML 100 ML IVPB (08:55)
[2025-06-05] MEDS: SODIUM CHLORIDE 0.9% IV 37.7 ML, MORPHINE SULFATE INJ (*CRX) 2 MG, ROPivacaine HCL 1% 2... INFILTRATE (09:37)
[2025-06-05] MEDS: TRANEXAMIC ACID 1,000 MG/10 ML AMPUL 1000 MG IV PUSH (11:05)
[2025-06-05] MEDS: KETOROLAC 15 MG/ML VIAL (*BKC) 7.5 MG IV PUSH ×2 (11:09→18:01)
--- NOTE | 2025-06-05 11:55 | W.PM.PROC2 ---
Procedure Note - Detailed Date of Procedure 06/05/25 Pre-op Diagnosis OA right knee Post-op Diagnosis Same Procedure Performed Right total knee arthroplasty Surgeon Mj Mckinney MD It Administrator Kenneth Cheatham Anesthesia General Description of Procedure Patient was brought to the operating room and general anesthesia was administered. She received weight based vancomycin 2 g of Ancef 1 g of TXA preoperatively. The right knee was prepped draped usual fashion. She had about a 4 degree flexion contracture under anesthesia. Limb was exsanguinated tourniquet elevated to 300 mmHg. A 7 in longitudinal midline incision was used and a vastus medialis splitting approach utilized splitting the vastus medialis at the superior pole patella. Partial excision of infrapatellar fat pad was performed in a quadriceps synovectomy carried out. Suprapatellar fat pad excised. The patella had some marginal spurring it had intact articular cartilage with focal mild chondromalacia and I felt it was suitable for non resurfacing. A minimal lateral facetectomy was performed. A guide yaneli was inserted on femoral canal after aspiration of canal contents using the 5 degree valgus cutting bushing, the cutting block was set to a remove 9 mm of bone from the distal femur. The guide sat on a medial osteophyte this was not quite down to the bare area on the medial femoral condyle so I estimated this was really a setting of 8 mm. Because of her posterior curve of the distal femur we applied her little extra posterior slope on the distal femoral cut. The seem to remove the appropriate amount of bone. Next the tibial plateau was cut. We started with a skim cut on the low point medial tibial plateau. Meniscal remnants were excised and the PCL was recessed from the femur. Flexion gap was 6 mm medially and 9-10 mm laterally at 90?. Therefore an additional 2 mm of bone removed the distal femur. Alignment confirmed perpendicular to the axis of the tibia. Flexion gap measured 8 mm medially and 10 mm laterally. The femoral sizing guide was applied distal femur set at 4? external rotation which matched Whitesides line. Posterior referencing pinholes were placed. The 65 was the right with our was going to notch couple mm so we applied a very slight increase the amount of posterior slope and with the 65 cutting block this gave a flush cut with the anterior cortex. There was no notch. Posterior and chamfer cuts were made. The 65 vanguard trial fit line to line medial to lateral. The tibia was prepared. The size 67 fit line to line anteromedial to posterolateral at proper rotation. There was a fairly large mid medial and posteromedial osteophytes clearly visible on the tibia. The tibial component was punched and we trialed. With the 10 insert, the knee lacked about 3 or 4? of extension. There was 1-2 mm of opening to varus stress in extension no play medially. The knee was very stable at 90? to anterior drawer. Since we were tighter medially we removed the posteromedial tibial osteophyte and did so without releasing any the posterior medial capsule which inserted just below the osteophyte. On read trialing the knee had barely positive bounce with barely 0.5 mm of opening medially to valgus stress. Therefore an additional 1 mm bone was removed the distal femur the chamfer cuts revisited. A conservative central posterior capsule release off posterior femur was performed since she did have a flexion contracture. Residual posterior femoral osteophytes proximal to the posterior medial femoral condyle was removed. At this point the knee came out to full extension with 1-2 mm of medial opening and 2-3 mm of lateral opening with a negative bounce. Appropriate stability in all positions was noted. Lug holes were drilled in the femur. The bony surfaces were prepared using a step drill on all the surfaces. Her bone quality was excellent. The bony surfaces were thoroughly irrigated and dried. Using 2 batches of methylmethacrylate 1 the gentamicin powder the cement was immediately applied the size 67 vanguard tibial tray and the 65 right cruciate retaining femoral component. Cement applied the tibial plateau pressurized tibial component fully seated cement applied the femur the femoral component fully seated the knee brought into extension with a 11 mm 5 and 1 insert for cement pressurization tourniquet was released total tourniquet time 111 minutes. After cement hardening excess cement was sought for removed and hemostasis was achieved. We trialed the 10 insert which had appropriate stability in all positions. There was central patellar tracking throughout range of motion. The 10 insert was placed locked with a locking pin range of motion stability patellar tracking reconfirmed. Local anesthetic cocktail was injected in periarticular soft tissues. Arthrotomy was closed with 2. Vicryl and 1. Unidirectional barbed Stratafix suture the split closed with 1. Vicryl. Echo flexion was 125? full extension. Skin closed with 2 subcu Vicryl 3-0 subcuticular Monocryl and glue EBL was 200 cc. Two additional g of Ancef 1 g of TXA given time wound closure. Anesthesia reported that there were no anesthesia complications with the procedure. She was transferred postop recovery room in stable condition. [facility] Billing Surgery - Charge Forward: Surgery Billing (Right total knee replacement)
--- NOTE | 2025-06-05 12:14 | PM.OP ---
Procedure Note - Brief Procedure Note - Brief Date of procedure: 06/05/25 OA right knee Procedure performed: Right total knee arthroplasty Surgeon: MACI Espinoza Findings: 60-year-old female underwent right total knee arthroplasty on 06/05 he will involved in the procedure including positioning the patient on the OR table in 1st assisting through the time surgery. Total time spent was 2-1/2 hours
--- NOTE | 2025-06-05 15:03 | ADMGEN ---
This patient, Essence Sommers, was admitted to -. Patient/family oriented to hospital policies and general routines including ID bracelet, bed and alarms, visiting hours, pain management, procedures, bathroom and other care routines, personal items, smoking policy, room service/diet, and visiting hours. Information on how to activate the Rapid Response Team has been discussed. Patient/Family are encouraged to report perceived risks to care and to ask questions if they do not understand what they are told or what they should do.
--- NOTE | 2025-06-05 15:34 | P.CONIM_ITS ---
Assessment and Plan Assessment and plan (1) Primary osteoarthritis of right knee: Code(s): M17.11 - Unilateral primary osteoarthritis, right knee Status: Acute Assessment and Plan: Status post right knee arthroplasty on 06/05 Pain management by Orthopedics Bowel protocol Elikelvinis for VTE Postop antibiotics Celebrex (2) Essential (primary) hypertension: Code(s): I10 - Essential (primary) hypertension Status: Acute Assessment and Plan: Continue hydrochlorothiazide (3) Dyslipidemia: Code(s): E78.5 - Hyperlipidemia, unspecified Status: Acute Assessment and Plan: Continue statin [facility] Date of Consult Consult date: 06/05/25 Requesting Physician: Mj Mckinney MD Primary Care Provider: Ronit Thapa [facility] Consult Narrative Reason for consult: Medical management Narrative: Essence Sommers is a 70 year old female patient presents the hospital for a planned right knee total arthroplasty for osteoarthritis. Patient seen after surgery. Patient states that she has no postop nausea or vomiting. She has the pain is controlled. Dressing is clean dry intact. Review of Systems Review of Systems: 12 systems were reviewed and are negativ e except for as per HPI. PMFSH Past Medical History Medical History Second degree AV block (~11/2024) Seasonal allergies Osteoarthritis Abnormal mammogram 06-23-2021 left breast asymmetries Dx mamm and US done 08/30/2021 probably Benign recommend 6 month f/u dx mamm and US Left breast mass Rosacea Psoriasis Vitamin D deficiency Essential (primary) hypertension GERD without esophagitis Dyslipidemia Surgical History Surgical History History of arthroplasty of left knee (12/26/24) History of wisdom tooth extraction (1981) History of tubal ligation (12/26/91) Family History Family History Father Family history of lung cancer Mother Diabetes mellitus Hypertension Social History Social History Social History: Surrogate medical decision maker: Oleg Sommers, spouse. Code status: Full code. Smoking packs per day: 1 Smoking cigarettes per day: 20.0 Years smoked: 10 Smoking pack-years: 10.00 Smoking status: Former smoker Second hand tobacco smoke exposure: No Additional smoking assessment comments: DENIES ANY FORM OF TOBACCO USE Alcohol intake: current Alcohol use details: consumes 3 beers or glasses of wine occasionally Substance use: never Substance use type: does not use Do You Feel Safe in your Home?: Yes Lack of Transportation: No Lack of Food: Never True Current Housing: Decline to Answer Concerned About Future Housing: Decline to Answer Difficulty Paying Gas/Electric Bills: Decline to Answer Difficulty Paying for Meds: Decline to Answer Currently Unemployed: Decline to Answer Education: Decline to Answer Difficulty w/ Childcare or Family Care: Decline to Answer Living arrangements: with family Additional living arrangements comments: Lives with spouse in [place]. Occupation/Education: retired Spiritual care concerns: No Agree to blood products: Yes Meds Home Medications and Allergies Home Medications ?Medication ?Instructions ?Recorded ?Confirmed ?Type cholecalciferol (vitamin D3) 50 50 mcg PO DAILY 06/02/20 06/05/25 History mcg (2,000 unit) capsule (D3) loratadine 10 mg tablet (Claritin) 10 mg PO DAILY #30 tabs 02/25/25 05/29/25 Rx omeprazole 20 mg capsule,delayed See Rx Instructions .Route 03/11/25 05/29/25 Rx release .COMPLEX #90 caps hydrochlorothiazide 25 mg tablet 25 mg PO QAM #90 tabs 04/14/25 05/29/25 Rx potassium chloride 20 mEq 20 meq PO DAILY #90 tabs 04/14/25 06/05/25 Rx tablet,extended release losartan 25 mg tablet 25 mg PO DAILY #90 tabs 04/25/25 05/29/25 Rx simvastatin 40 mg tablet 40 mg PO QHS #90 tabs 05/06/25 05/29/25 Rx acetaminophen 500 mg tablet 1,000 mg PO PRN PRN pain 05/15/25 05/29/25 History (Acetaminophen Pain Relief) Allergies Allergy/AdvReac Type Severity Reaction Status Date / Time No Known Allergies Allergy Verified 06/05/25 10:52 Vital Signs Vital Signs - 24 hr 06/05/25 08:45 06/05/25 11:56 06/05/25 12:10 Temperature 99.3 F 98.4 F Pulse Rate 101 H 91 90 Respiratory Rate 16 12 12 Blood Pressure 138/77 117/59 L 108/59 L Pulse Oximetry 95 94 96 Oxygen Delivery Room Air Simple Face Mask Simple Face Mask Oxygen Flow Rate 6 6 06/05/25 12:25 06/05/25 12:40 06/05/25 12:55 Temperature Pulse Rate 90 94 102 H Respiratory Rate 12 12 14 Blood Pressure 110/59 L 124/72 113/71 Pulse Oximetry 96 96 96 Oxygen Delivery Simple Face Mask Simple Face Mask Room Air Oxygen Flow Rate 6 6 06/05/25 13:10 06/05/25 13:25 06/05/25 13:55 Temperature 97.8 F Pulse Rate 96 91 96 Respiratory Rate 12 12 12 Blood Pressure 117/73 121/66 123/76 Pulse Oximetry 90 99 97 Oxygen Delivery Nasal Cannula Nasal Cannula Nasal Cannula Oxygen Flow Rate 2 2 2 06/05/25 14:25 06/05/25 15:22 Temperature Pulse Rate 92 Respiratory Rate 14 Blood Pressure 114/74 Pulse Oximetry 99 Oxygen Delivery Nasal Cannula Room Air Oxygen Flow Rate 2 Exam Narrative: General: well appearing, appears stated age. HEENT: normocephalic, atraumatic. Mucous membranes moist. EOMI, PERRLA, bilateral sclera anicteric, no conjunctival injection. Neck supple without JVD, lymphadenopathy, or bruit. Respiratory: clear to ascultation bilaterally. No rales/rhonic/wheezes. Cardiovascular: Regular rate and rhythm, normal S1-S2 upon ascultation. No murmurs, rubs, or clicks. PMI is nondisplaced, capillary refill less than 3 second. Abdomen: Soft, round, no pulsatile masses, nondistended and nontender. No rebound, no guarding. No CVA tenderness, no hepatosplenomegaly. Bowel sounds present to all four quadrants. No high pitch or tinkling sounds, resonant to percussion. Extremities: No cyanosis, clubbing, or edema present. Pulses are palpable 2/2. Right lower extremity dressing clean dry intact Neuro: Alert and orientated x 4. PERRLA. Cranial nerves 2-12 intact without focal deficit. Skin: Warm, dry, and intact, without rash, erythema, or lesion. Psych: pleasant, cooperative, normal speech, normal affect, no hallucinations, no dysarthia Quality VTE Prophylaxis VTE prophylaxis: mechanical ordered and pharmacologic ordered Hospitalist [facility] Advance Care Plan I have confirmed that the patient's Advanced Care Plan is present, code status is documented, or surrogate decision maker is listed in patient medical record.: Yes Medication Reconciliation I have utilized all available resources to obtain, update and review the patients current medications (includes all prescriptions, OTC, herbals, cannabis, and nutritional supplements).: Yes
[2025-06-05] MEDS: SENNA/DOCUSATE SODIUM TABLET 2 TAB PO (15:42)
[2025-06-05] MEDS: ceFAZolin 2 GM/D5W 50 ML 2 GM/50 ML BAG IVPB (15:42)
[2025-06-05] MEDS: SODIUM CHLORIDE 0.9% IV 1,000 ML 125 ML IV CONT (15:42)
[2025-06-05] MEDS: ACETAMINOPHEN 325 MG TABLET 650 MG PO ×2 (15:42→20:30)
[2025-06-05] MEDS: oxyCODONE HCL (*CRX) 5 MG TAB IR PO ×3 (15:42→22:05)
[2025-06-05] MEDS: VANCOMYCIN HCL 1,000 MG in SODIUM CHLORIDE 0.9% IV 250 ML 250 MG IVPB (20:21)
[2025-06-05] MEDS: SIMVASTATIN 20 MG TABLET 40 MG PO (20:30)
[2025-06-05] MEDS: FAMOTIDINE 20 MG TABLET PO (20:30)
[2025-06-06 00:25] VITALS: BP 113/63; PULSE 81; RESP 16; TEMP 37.7; O2SAT 90
[2025-06-06] MEDS: ceFAZolin 2 GM/D5W 50 ML 2 GM/50 ML BAG IVPB ×2 (00:26→09:03)
[2025-06-06] MEDS: ACETAMINOPHEN 325 MG TABLET 650 MG PO ×4 (00:26→12:17)
[2025-06-06] MEDS: KETOROLAC 15 MG/ML VIAL (*BKC) 7.5 MG IV PUSH (00:27)
[2025-06-06] MEDS: oxyCODONE HCL (*CRX) 5 MG TAB IR PO ×3 (03:21→12:17)
[2025-06-06 04:41] VITALS: BP 93/57; PULSE 79; RESP 20; TEMP 36.4; O2SAT 90
[2025-06-06 06:12] LABS: Hematocrit 32.2 % (37.0-47.0); Hemoglobin 10.0 g/dL (12.0-15.0); Immature Granulocyte Percent A 0.6 % (0-0.5); Lymphocytes Absolute Auto 0.99 K/mm3 (0.9-3.2); Mean Corpuscular HGB Conc 31.1 g/dl (32-36); Mean Corpuscular Hemoglobin 29.0 pg (26-34); Mean Corpuscular Volume 93.3 fl (80-100); Nucleated Red Blood Cells Absolute Auto 0.000 K/mm3 (0.0-0.012); Nucleated Red Blood Cells Perc 0.0 % (0.0-0.2); Platelet Count Result 330 k/mm3 (150-375); Red Blood Count 3.45 M/mm3 (4.2-5.4); White Blood Count 15.9 K/mm3 (4.5-10.0)
[2025-06-06 06:36] LABS: Anion Gap 11 mmol/L (4-12); Blood Urea Nitrogen 18 mg/dL (7-17); Calcium 8.3 mg/dL (8.4-10.2); Carbon Dioxide 23 mmol/L (22-30); Chloride 100 mmol/L (98-107); Estimated CRCL calculation 48 ml/min; Estimated Glomerular Filt Rate 53; Glucose 127 mg/dL (65-110); Potassium 3.8 mmol/L (3.4-5.0); Sodium 134 mmol/L (137-145)
--- NOTE | 2025-06-06 07:43 | P.PNOP_ITS ---
Subjective Subjective Date/Time Seen: 06/06/25 07:43 Interval history: Postop day 1 patient is alert. She is afebrile vital signs are stable. Dressing is dry and intact. Pain is very well controlled. She was up yesterday to the restroom multiple times. She is urinating well. She get up to the floor little late yesterday and so therapy was not still in house to work with her. They will see her this morning. Patient had her left knee replaced in November, she is very well aware what she needs to do in her recovery. Morning labs are noted. Neurovascularly patient is intact. She is able do a straight leg raise in the bed this morning. Overall patient is doing very well. Will have her work with therapy this morning and once IV antibiotics have been completed she will be discharged home Objective Data Vital Signs Vital Signs: Vital Signs - 24 hr 06/05/25 08:45 06/05/25 11:56 06/05/25 12:10 Temperature 99.3 F 98.4 F Pulse Rate 101 H 91 90 Respiratory Rate 16 12 12 Blood Pressure 138/77 117/59 L 108/59 L Pulse Oximetry 95 94 96 Oxygen Delivery Room Air Simple Face Mask Simple Face Mask Oxygen Flow Rate 6 6 06/05/25 12:25 06/05/25 12:40 06/05/25 12:55 Temperature Pulse Rate 90 94 102 H Respiratory Rate 12 12 14 Blood Pressure 110/59 L 124/72 113/71 Pulse Oximetry 96 96 96 Oxygen Delivery Simple Face Mask Simple Face Mask Room Air Oxygen Flow Rate 6 6 06/05/25 13:10 06/05/25 13:25 06/05/25 13:55 Temperature 97.8 F Pulse Rate 96 91 96 Respiratory Rate 12 12 12 Blood Pressure 117/73 121/66 123/76 Pulse Oximetry 90 99 97 Oxygen Delivery Nasal Cannula Nasal Cannula Nasal Cannula Oxygen Flow Rate 2 2 2 06/05/25 14:25 06/05/25 15:00 06/05/25 15:15 Temperature 97.6 F 97.8 F Pulse Rate 92 88 90 Respiratory Rate 14 16 16 Blood Pressure 114/74 117/62 116/67 Pulse Oximetry 99 95 94 Oxygen Delivery Nasal Cannula Oxygen Flow Rate 2 06/05/25 15:22 06/05/25 15:45 06/05/25 16:45 Temperature 98.2 F 97.8 F Pulse Rate 87 93 Respiratory Rate 16 16 Blood Pressure 109/65 118/58 L Pulse Oximetry 95 95 Oxygen Delivery Room Air Oxygen Flow Rate 06/05/25 16:55 06/05/25 20:16 06/06/25 00:25 Temperature 98.5 F 99.9 F H Pulse Rate 80 81 Respiratory Rate 16 16 Blood Pressure 109/65 113/63 Pulse Oximetry 97 91 90 Oxygen Delivery Room Air Oxygen Flow Rate 06/06/25 04:41 Temperature 97.6 F Pulse Rate 79 Respiratory Rate 20 Blood Pressure 93/57 L Pulse Oximetry 90 Oxygen Delivery Oxygen Flow Rate Intake/Output Intake/Output: Intake & Output 06/03/25 06/04/25 06/05/25 06/06/25 23:59 23:59 23:59 23:59 Intake Total 1790 550 Balance 1790 550 Meds/Results Medications: Active Medications Generic Name Dose Route Start Last Admin Trade Name Freq PRN Reason Stop Dose Admin Acetaminophen 650 mg 06/05/25 16:00 06/06/25 05:27 Acetaminophen 325 Mg Tablet PO 650 mg Q4H LULA Administration Apixaban 2.5 mg 06/06/25 09:00 Apixaban 2.5 Mg Tablet PO 06/17/25 21:01 Q12HR LULA Cefdinir 300 mg 06/06/25 18:00 Cefdinir 300 Mg Capsule PO Q12H LULA Celecoxib 100 mg 06/06/25 08:00 Celecoxib 100 Mg Capsule PO DAILY@0800 LULA Diphenhydramine HCl 25 mg 06/05/25 14:55 Diphenhydramine Hcl Inj 50 Mg/Ml Vial IV PUSH Q6H PRN Itching Famotidine 20 mg 06/05/25 21:00 06/05/25 20:30 Famotidine 20 Mg Tablet PO 20 mg Q12HR LULA Administration Hydrochlorothiazide 25 mg 06/06/25 09:00 Hydrochlorothiazide 25 Mg Tablet PO QAM LULA Cefazolin Sodium 2 gm in 50 mls @ 100 mls/hr 06/05/25 17:00 06/06/25 00:26 Ancef 2 Gm/D5w 50 Ml IVPB 06/06/25 09:29 100 mls/hr Q8H LULA Administration Vancomycin HCl 1,000 mg/ 250 mls @ 250 mls/hr 06/05/25 21:00 06/05/25 20:21 Sodium Chloride IVPB 06/06/25 09:59 250 mls/hr Q12H LULA Administration Loratadine 10 mg 06/06/25 09:00 Loratadine 10 Mg Tablet PO DAILY [facility] Losartan Potassium 25 mg 06/06/25 09:00 Losartan Potassium 25 Mg Tablet PO DAILY [facility] Morphine Sulfate 2 mg 06/05/25 14:55 Morphine Sulfate (*Crx) 2 Mg/Ml Inj IV PUSH Q2H PRN Breakthrough Pain Rated 4-6 or NPO Naloxone HCl 0.1 mg 06/05/25 14:55 Naloxone Hcl 0.4 Mg/Ml Vial IV PUSH Q2M PRN Opiate Reversal Ondansetron HCl 4 mg 06/05/25 14:55 Ondansetron Inj 4 Mg/2 Ml Vial IV PUSH Q4H PRN Nausea And Vomiting Oxycodone HCl 5 mg 06/05/25 14:55 06/06/25 06:35 Oxycodone Hcl (*Crx) 5 Mg Tab Ir PO 5 mg Q4H LULA Administration Oxycodone HCl 5 mg 06/05/25 14:55 Oxycodone Hcl (*Crx) 5 Mg Tab Ir PO Q4H PRN Pain Rated 7-10 Polyethylene Glycol 17 gm 06/06/25 09:00 Polyethylene Glycol 3350 17 Gm Powd.Pack PO QAM [facility] Potassium Chloride 20 meq 06/06/25 09:00 Potassium Chloride 20 Meq Er Tablet PO DAILY [facility] Senna/Docusate Sodium 2 tab 06/05/25 17:00 06/05/25 15:42 Senna/Docusate Sodium Tablet PO 2 tab BID [facility]ULA Administration Simvastatin 40 mg 06/05/25 21:00 06/05/25 20:30 Simvastatin 20 Mg Tablet PO 40 mg QHS [facility] Administration Vitamin D 50 mcg 06/06/25 09:00 Cholecalciferol (Vitamin D3) 25 Mcg (1,000 Units) Tablet PO DAILY [facility] Radiology Results: ITS Impressions Knee X-Ray 06/05/25 13:06 IMPRESSION: 1. Right total knee arthroplasty, negative for postoperative purposes. Labs Labs: Laboratory Results - last 24 hr 06/05/25 06/06/25 08:33 05:03 WBC 15.9 H RBC 3.45 L Hgb 10.0 L Hct 32.2 L MCV 93.3 MCH 29.0 MCHC 31.1 L RDW 13.9 Plt Count 330 MPV 10.9 H Immature Gran % (Auto) 0.6 H Neut % (Auto) 89.1 H Lymph % (Auto) 6.2 L [place] % (Auto) 4.0 Eos % (Auto) 0.0 Baso % (Auto) 0.1 L Lymph # (Auto) 0.99 [place] # (Auto) 0.6 Eos # (Auto) 0.0 Baso # (Auto) 0.0 Abs Immat Gran (auto) 0.09 H Absolute Neuts (auto) 14.2 H Absolute Nucleated RBC 0.000 Nucleated RBC % 0.0 Sodium 134 L Potassium 3.8 Chloride 100 Carbon Dioxide 23 Anion Gap 11 BUN 18 H Creatinine 1.04 H Estim Creat Clear Calc 48 Estimated GFR 53 L Glucose 127 H Calcium 8.3 L Blood Type A Positive Antibody Screen Negative
[2025-06-06 08:00] VITALS: BP 99/51; PULSE 75; RESP 16; TEMP 36.3; O2SAT 94
[2025-06-06] MEDS: CELECOXIB 100 MG CAPSULE PO (09:02)
[2025-06-06] MEDS: POTASSIUM CHLORIDE 20 MEQ ER TABLET PO (09:02)
[2025-06-06] MEDS: CHOLECALCIFEROL (VITAMIN D3) 25 MCG (1,000 UNITS) TABLET 50 MCG PO (09:02)
[2025-06-06] MEDS: APIXABAN 2.5 MG TABLET PO (09:02)
[2025-06-06] MEDS: FAMOTIDINE 20 MG TABLET PO (09:02)
[2025-06-06] MEDS: LORATADINE 10 MG TABLET PO (09:02)
[2025-06-06] MEDS: SENNA/DOCUSATE SODIUM TABLET 2 TAB PO (09:03)
[2025-06-06] MEDS: VANCOMYCIN HCL 1,000 MG in SODIUM CHLORIDE 0.9% IV 250 ML 250 MG IVPB (10:01)
--- NOTE | 2025-06-06 13:20 | P.PNIM_ITS ---
Progress Note: A&P Assessment and Plan (1) Primary osteoarthritis of right knee: Code(s): M17.11 - Unilateral primary osteoarthritis, right knee Status: Acute Assessment and Plan: Status post right knee arthroplasty on 06/05 Pain management by Orthopedics DVT prophylaxis and post op antibiotics per Orthopedic surgery (2) Essential (primary) hypertension: Code(s): I10 - Essential (primary) hypertension Status: Acute Assessment and Plan: Continue hydrochlorothiazide (3) Dyslipidemia: Code(s): E78.5 - Hyperlipidemia, unspecified Status: Acute Assessment and Plan: Continue statin Plan Patient is stable for discharge from medical standpoint. Subjective Date/time seen: 06/06/25 13:20 Interval history: Comfortable at bedside Review of Systems Review of Systems: 12 systems were reviewed and are negativ e except for as per HPI. Exam Narrative: General: well appearing, appears stated age. HEENT: normocephalic, atraumatic. Mucous membranes moist. EOMI, PERRLA, bilateral sclera anicteric, no conjunctival injection. Neck supple without JVD, lymphadenopathy, or bruit. Respiratory: clear to ascultation bilaterally. No rales/rhonic/wheezes. Cardiovascular: Regular rate and rhythm, normal S1-S2 upon ascultation. No murmurs, rubs, or clicks. PMI is nondisplaced, capillary refill less than 3 second. Abdomen: Soft, round, no pulsatile masses, nondistended and nontender. No rebound, no guarding. No CVA tenderness, no hepatosplenomegaly. Bowel sounds present to all four quadrants. No high pitch or tinkling sounds, resonant to percussion. Extremities: No cyanosis, clubbing, or edema present. Pulses are palpable 2/2. Right lower extremity dressing clean dry intact Neuro: Alert and orientated x 4. PERRLA. Cranial nerves 2-12 intact without focal deficit. Skin: Warm, dry, and intact, without rash, erythema, or lesion. Psych: pleasant, cooperative, normal speech, normal affect, no hallucinations, no dysarthia Objective Data Vital Signs Vital Signs: Vital Signs - 24 hr 06/05/25 13:25 06/05/25 13:55 06/05/25 14:25 Temperature 97.8 F Pulse Rate 91 96 92 Respiratory Rate 12 12 14 Blood Pressure 121/66 123/76 114/74 Pulse Oximetry 99 97 99 Oxygen Delivery Nasal Cannula Nasal Cannula Nasal Cannula Oxygen Flow Rate 2 2 2 06/05/25 15:00 06/05/25 15:15 06/05/25 15:22 Temperature 97.6 F 97.8 F Pulse Rate 88 90 Respiratory Rate 16 16 Blood Pressure 117/62 116/67 Pulse Oximetry 95 94 Oxygen Delivery Room Air Oxygen Flow Rate 06/05/25 15:45 06/05/25 16:45 06/05/25 16:55 Temperature 98.2 F 97.8 F Pulse Rate 87 93 Respiratory Rate 16 16 Blood Pressure 109/65 118/58 L Pulse Oximetry 95 95 97 Oxygen Delivery Room Air Oxygen Flow Rate 06/05/25 20:16 06/06/25 00:25 06/06/25 04:41 Temperature 98.5 F 99.9 F H 97.6 F Pulse Rate 80 81 79 Respiratory Rate 16 16 20 Blood Pressure 109/65 113/63 93/57 L Pulse Oximetry 91 90 90 Oxygen Delivery Oxygen Flow Rate 06/06/25 08:00 06/06/25 08:00 06/06/25 08:26 Temperature 97.4 F L Pulse Rate 75 Respiratory Rate 16 Blood Pressure 99/51 L Pulse Oximetry 94 Oxygen Delivery Room Air Room Air Oxygen Flow Rate 06/06/25 09:22 Temperature Pulse Rate Respiratory Rate Blood Pressure Pulse Oximetry Oxygen Delivery Room Air Oxygen Flow Rate Intake/Output Intake/Output: Intake & Output 06/03/25 06/04/25 06/05/25 06/06/25 23:59 23:59 23:59 23:59 Intake Total 0 720 Balance 2039 720 Meds/Results Medications: Active Medications Generic Name Dose Route Start Last Admin Trade Name Freq PRN Reason Stop Dose Admin Acetaminophen 650 mg 06/05/25 16:00 06/06/25 12:17 Acetaminophen 325 Mg Tablet PO 650 mg Q4H LULA Administration Apixaban 2.5 mg 06/06/25 09:00 06/06/25 09:02 Apixaban 2.5 Mg Tablet PO 06/17/25 21:01 2.5 mg Q12HR LULA Administration Cefdinir 300 mg 06/06/25 18:00 Cefdinir 300 Mg Capsule PO Q12H [facility]UL[facility] Celecoxib 100 mg 06/06/25 08:00 06/06/25 09:02 Celecoxib 100 Mg Capsule PO 100 mg DAILY@0800 [facility] Administration Diphenhydramine HCl 25 mg 06/05/25 14:55 Diphenhydramine Hcl Inj 50 Mg/Ml Vial IV PUSH Q6H PRN Itching Famotidine 20 mg 06/05/25 21:00 06/06/25 09:02 Famotidine 20 Mg Tablet PO 20 mg Q12HR [facility] Administration Hydrochlorothiazide 25 mg 06/06/25 09:00 Hydrochlorothiazide 25 Mg Tablet PO QAM [facility] Loratadine 10 mg 06/06/25 09:00 06/06/25 09:02 Loratadine 10 Mg Tablet PO 10 mg DAILY [facility] Administration Losartan Potassium 25 mg 06/06/25 09:00 Losartan Potassium 25 Mg Tablet PO DAILY [facility] Morphine Sulfate 2 mg 06/05/25 14:55 Morphine Sulfate (*Crx) 2 Mg/Ml Inj IV PUSH Q2H PRN Breakthrough Pain Rated 4-6 or NPO Naloxone HCl 0.1 mg 06/05/25 14:55 Naloxone Hcl 0.4 Mg/Ml Vial IV PUSH Q2M PRN Opiate Reversal Ondansetron HCl 4 mg 06/05/25 14:55 Ondansetron Inj 4 Mg/2 Ml Vial IV PUSH Q4H PRN Nausea And Vomiting Oxycodone HCl 5 mg 06/05/25 14:55 06/06/25 12:17 Oxycodone Hcl (*Crx) 5 Mg Tab Ir PO 5 mg Q4H [facility]ULA Administration Oxycodone HCl 5 mg 06/05/25 14:55 Oxycodone Hcl (*Crx) 5 Mg Tab Ir PO Q4H PRN Pain Rated 7-10 Polyethylene Glycol 17 gm 06/06/25 09:00 06/06/25 09:03 Polyethylene Glycol 3350 17 Gm Powd.Pack PO 17 gm QAM [facility] Administration Potassium Chloride 20 meq 06/06/25 09:00 06/06/25 09:02 Potassium Chloride 20 Meq Er Tablet PO 20 meq DAILY [facility] Administration Senna/Docusate Sodium 2 tab 06/05/25 17:00 06/06/25 09:03 Senna/Docusate Sodium Tablet PO 2 tab BID [facility] Administration Simvastatin 40 mg 06/05/25 21:00 06/05/25 20:30 Simvastatin 20 Mg Tablet PO 40 mg QHS [facility] Administration Vitamin D 50 mcg 06/06/25 09:00 06/06/25 09:02 Cholecalciferol (Vitamin D3) 25 Mcg (1,000 Units) Tablet PO 50 mcg DAILY [facility] Administration Radiology Results: ITS Impressions Knee X-Ray 06/05/25 13:06 IMPRESSION: 1. Right total knee arthroplasty, negative for postoperative purposes. Labs Labs: Laboratory Results - last 24 hr 06/06/25 05:03 WBC 15.9 H RBC 3.45 L Hgb 10.0 L Hct 32.2 L MCV 93.3 MCH 29.0 MCHC 31.1 L RDW 13.9 Plt Count 330 MPV 10.9 H Immature Gran % (Auto) 0.6 H Neut % (Auto) 89.1 H Lymph % (Auto) 6.2 L [place] % (Auto) 4.0 Eos % (Auto) 0.0 Baso % (Auto) 0.1 L Lymph # (Auto) 0.99 [place] # (Auto) 0.6 Eos # (Auto) 0.0 Baso # (Auto) 0.0 Abs Immat Gran (auto) 0.09 H Absolute Neuts (auto) 14.2 H Absolute Nucleated RBC 0.000 Nucleated RBC % 0.0 Sodium 134 L Potassium 3.8 Chloride 100 Carbon Dioxide 23 Anion Gap 11 BUN 18 H Creatinine 1.04 H Estim Creat Clear Calc 48 Estimated GFR 53 L Glucose 127 H Calcium 8.3 L Quality VTE Prophylaxis VTE prophylaxis: mechanical ordered and pharmacologic ordered
== END 2025-06-06 12:40 | disposition home or self-care (01) ==
LOC: ANHSURGERY 07:42 → ANH3MEDSUR 15:09
PROVIDERS: Physician Assistant Surgical; PCP Family Medicine; Visit Provider Orthopaedic Surgery
PROC: (CPT 27447; principal; 2025-06-05 11:30)
DX: M17.11 Unilateral primary osteoarthritis, right knee (principal); M25.761 Osteophyte, right knee; I10 Essential (primary) hypertension; E78.5 Hyperlipidemia, unspecified; E55.9 Vitamin D deficiency, unspecified; K21.9 Gastro-esophageal reflux disease without esophagitis; I44.1 Atrioventricular block, second degree; L40.9 Psoriasis, unspecified; E66.9 Obesity, unspecified; Z68.32 Body mass index [BMI] 32.0-32.9, adult; Z98.890 Other specified postprocedural states; Z98.51 Tubal ligation status; Z96.652 Presence of left artificial knee joint; Z87.891 Personal history of nicotine dependence; Z80.1 Family history of malignant neoplasm of trachea, bronchus and lung
CPT/HCPCS: 27447; 36415; 73560; 80048; 85025; 86850; 86900; 86901; 97110; 97161; 97165; J0690; A9270; C1776; J0166; J0360; J1100; J1171; J1885; J2003; J2250; J2270; J2405; J2704; J2795; J3373; J7030; J7050; J7120

== ENCOUNTER 2025-06-09 09:58 | Outpatient (RCR) | payer MEDICARE, SELFPAY ==
--- NOTE | 2025-06-09 10:43 | PTOPEVAL1 ---
Assessment and note entered by Mark Alexander Evaluation Information Assessment Status Evaluation Diagnosis s/p R TKA ICD-10 Condition Codes (PT) Aftercare following joint replacement surgery Z47. 1 Onset 06/05/25 Subjective Information Pt. reports that she underwent a right TKA last week. She states that she has had a lot of pain. She recently had a left TKA that she felt went more smoothly. She states that she has been exercising daily since returning home from the hospital. She states that she has pictures of the doctors exercise protocol. She reports sleep is difficult due to pain. She reports she is currently using a walker. She reports she was independent with all IADL's. Her goal is to return to walking normal and improve her knee mobility. Reported Pain Level Pain Score 5: Self Report Assessment PT Clinical Summary Pt. enters the clinic 4 days post R TKA. She presents with edema, limited R knee ROM, impaired right l.e. strength, impaired gait, pain and functional decline. Continued skilled PT is indicated in order to improve these areas to allow the pt. to return to normal IADL performance without limitation. Plan of Care Interventions Electrical Stimulation,Gait Training,Manual Therapy,Neuro Re-education,Patient/Caregiver Education,Therapeutic Activities,Therapeutic Exercise PT Services Indicated Yes Treatment Frequency and 2x/week x 12 visits Duration These treatments will address the objective and functional deficits as defined above. The patient will be advanced safely and appropriately in order for the patient to progress towards his/her prior level of function. Additional exercises will be introduced and as well as a comprehensive home exercise program upon discharge, if needed, ?to ensure carryover of functional gains achieved in the clinic. This treatment plan has been reviewed and agreement upon by the patient.
--- NOTE | 2025-07-11 12:36 | OPREHPOC ---
Outpatient Therapy Plan of Care This is a Multidisciplinary Plan of Care that may contain components documented by all disciplines (PT, OT, and ST.) PT Problem 1 PT Problem #1 Knowledge Deficit PT Goal 1 Goal / Goal Update Pt. will be independent with a HEP focusing on mobility evangelical and strength Target Visit 2 Progress Met PT Problem 2 PT Problem #2 Impaired Range of Motion PT Goal 1 Goal / Goal Update Pt. will achieve 0-125 degrees right knee AROM Target Visit 8 Progress Partially Met PT Problem 3 PT Problem #3 Impaired Functional Mobility PT Goal 1 Goal / Goal Update Pt. will complete SLR without assist for 20 reps Pt. will navigate steps with reciprocal pattern for 15 steps Pt. will complete the 6 minute walk test without an AD with equal right and left stance time with a distance of 1200' or greater to return to community navigation Target Visit 12 Progress Partially Met
--- NOTE | 2025-07-11 12:36 | PTOPPROGNS ---
Assessment and note entered by JT File, PT Evaluation Information Assessment Status Progress Diagnosis s/p R TKA ICD-10 Condition Codes (PT) Aftercare following joint replacement surgery Z47. 1 Onset 06/05/25 Subjective Information patient reports she feels pretty good today. she reports she has no pain in the R knee. she reports she is compliant with her HEP, and uses no AD to get around. Assessment PT Clinical Summary mrs. dover is progressing well in her rehab from R TKA. she is improving in rom, gait mechanics, and stair ambulation. she still lacks achievement of strength, rom, and gait/stair ambulation efficiency goals. continued skilled PT will focus on these and other remaining objective/functional deficits to return to her prior level functional activity performance and quality of life. Plan of Care Interventions Electrical Stimulation,Gait Training,Manual Therapy,Neuro Re-education,Patient/Caregiver Education,Therapeutic Activities,Therapeutic Exercise PT Services Indicated Yes Treatment Frequency and continue per initial POC Duration These treatments will address the objective and functional deficits as defined above. The patient will be advanced safely and appropriately in order for the patient to progress towards his/her prior level of function. Additional exercises will be introduced and as well as a comprehensive home exercise program upon discharge, if needed, ?to ensure carryover of functional gains achieved in the clinic. This treatment plan has been reviewed and agreement upon by the patient.
--- NOTE | 2025-07-17 10:40 | OPREHPOC ---
Outpatient Therapy Plan of Care This is a Multidisciplinary Plan of Care that may contain components documented by all disciplines (PT, OT, and ST.) PT Problem 1 PT Problem #1 Knowledge Deficit PT Goal 1 Goal / Goal Update Pt. will be independent with a HEP focusing on mobility evangelical and strength Target Visit 2 Progress Met PT Problem 2 PT Problem #2 Impaired Range of Motion PT Goal 1 Goal / Goal Update Pt. will achieve 0-125 degrees right knee AROM Target Visit 8 Progress Met PT Problem 3 PT Problem #3 Impaired Functional Mobility PT Goal 1 Goal / Goal Update Pt. will complete SLR without assist for 20 reps - met Pt. will navigate steps with reciprocal pattern for 15 steps -met Pt. will complete the 6 minute walk test without an AD with equal right and left stance time with a distance of 1200' or greater to return to community navigation -met Target Visit 12 Progress Met
--- NOTE | 2025-07-17 10:40 | PTOPDC ---
Assessment and note entered by Sara Madrid, PT Evaluation Information Assessment Status Discharge Diagnosis s/p R TKA ICD-10 Condition Codes (PT) Aftercare following joint replacement surgery Z47. 1 Onset 06/05/25 Subjective Information Mrs. Sommers reports her knee is feeling good and she's ready to discharge today. She's able to climb the 4 steps to enter her home reciprocally and without difficulty, she does note that when descending her basement steps she cantu time due to how many steps there are. She has kept up with her exercises and notes improvement in her walking and strength. Reported Pain Level Pain Score 1: Self Report Assessment PT Clinical Summary Mrs. Sommers has attended 12 skilled PT visits following R TKA on 06/05/2025. She demonstrates overall reduction in pain and she has made great progress in her LE strength, R knee AROM, and ambulation. She has met or partially met all therapeutic goals set for her and is appropriate for discharge from skilled PT this date. Plan of Care PT Services Indicated No
== END 2025-07-17 10:46 | disposition home or self-care (01) ==
LOC: CHSPT 09:58
PROVIDERS: Visit Provider Orthopaedic Surgery
DX: M17.11 Unilateral primary osteoarthritis, right knee (principal); Z96.651 Presence of right artificial knee joint; Z47.81 Encounter for orthopedic aftercare following surgical amputation
CPT/HCPCS: 97110; 97150; 97161; 97530

== ENCOUNTER 2025-09-17 08:23 | Outpatient (CLI) | payer MEDICARE, SELFPAY ==
--- OUTSIDE RECORDS SUMMARY | 2025-09-17 08:44 | XMS_ITS | Data Portability ---
Author Organization [place] [facility], Main Office Address [address] [place] [address] Care Team Providers Care Park Ranger Name Role Phone TYE VILLAVICENCIO Primary Care Provider [phone] TYE VILLAVICENCIO Referring Provider Assessment Encounter Date Assessment Date Assessment LastModified by Organization Details LastModified Time 03/08/2023 03/08/2023 HPI: Patient returns. It has been 3 months last cortisone injection both. She has moderately severe osteoarthritis knees. Injections continue to give her good relief. She is clam-zxx-rgetzex which she feels helps better prescription strength. [...] procedure, administere d by provider 2022 023 [email or web address] In-Office Order, Internal Use Only DO Not Attach Compendium DO Not Attach Compendium, Do Not Delete/merge, [id number] 09:04:57 Surgeries None recorded. Imaging None recorded. Medication Orders Kenalog 10 mg/mL suspension for injection [address] [facility] [place], [address], 3 16:20:26 ropivacaine (PF) 5 mg/mL (0.5 %) injection solution [address] [facility] [place], [address], 3 16:20:26 Patient TargetsNo targets recorded. Patient InstructionsNo instructions recorded. Reason for Referral None Reported. Results Created Date Observation Date Name Description Value Unit Range Abnormal Flag Note LastModifiedBy Organization Detail LastModifiedTime 03/09/20 22 XR, knee No observ ation record ed. [id number] [address], [place], [address], 01/25/2023 08:13:39 Result Notes None recorded. Problems Name Problem SNOMED Code Status Onset Date Resolution Date Notes Provider Name and Address Organization Details Recorded Time Osteoarthr itis 091432065 Active 2021 Not Available [facility] 3 08:08:47 Bilateral osteoarthr itis of knees 8164874945635 07 Active 2022 GIL Calvin, [place] [facility] [place] [employer] [facility] 3 09:03:34 Problem Notes None recorded. Procedures Surgical History Date Name Laterality Status Provider Name and Address Organization Details Recorded Time 06/23/20 21 Most Recent Mammogram completed Not Available [facility] 01/25/2023 08:05:04 02/06/20 19 Date of Last Pap Smear completed Not Available [facility] 01/25/2023 08:05:04 04/16/20 13 Most Recent Bone Density completed Not Available [facility] 01/25/2023 08:05:04 04/27/20 11 Date of Last Colonoscopy completed Not Available [facility] 01/25/2023 08:05:03 12/26/18 92 [employer] Surgery completed Not Available [facility] 01/26/20 08:05:05 Tubal Ligation completed Not Available Replaced by [facility] 01/25/2023 08:05:05 Imaging Results None recorded. Procedure [...] Updated DateTime 12/07/2022 32.3 kg/m2 162.56 cm 29955.37 g Not Available [facility] 01/25/2023 08:06:36 Date Recorded Body height Provider Name an d Address Organization Details Last Updated DateTime 03/08/2023 162.56 cm GIL Calvin [place] 03/08/2023 09:02:31 Date Recorded Body height Provider Name an d Address Organization Details Last Updated DateTime 03/09/2022 166.37 cm Not Available [facility] 3 08:06:35 Date Recorded Body height Provider Name an d Address Organization Details Last Updated DateTime 06/08/2022 166.37 cm Not Available [facility] 3 08:06:35 Date Recorded Body height Provider Name an d Address Organization Details Last Updated DateTime 09/07/2022 166.37 cm Not Available [facility] 3 08:06:35 Social History Question Answer Notes LastModified by Organizat ion Details LastModified Time Tobacco Smoking Status Never Smoker April busby, [facility] 03/08/2023 09:01:28 What Is Your Level Of Caffeine Consumption? None [id number] Information not available 01/25/2023 In The 14 Days Before Symptom Onset, Have You Had Close Contact With A Laboratory-confirm ed COVID-19 While That Case Was Ill? No Information n ot available 03/08/2023 In The 14 Days Before Symptom Onset, Have You Had Close Contact With A Person Who Is Under Investigation For COVID-19 While That Person Was Ill? No [email or web address] Information not available 03/08/2023 Which Illicit Or Recreational Drugs Have You Used? None [email or web address] Information not available 03/08/2023 Sex: Unknown Functional Status Question Answer Note LastModified by Organizat ion Details LastModified Time What is your level of alcohol consumption? 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 Never used electronic cigarettes [email or web address] Information not available 03/08/2023 What is your exercise level? Occasional [id number] Information not available 01/25/2023 Mental Status None recorded. Family History Relationship Description Onset Age of this Age Resolved Age Notes LastModified by Organization Details LastModified Time Mother Diabetes mellitus [id number] Not available 01/25/2023 08:05:07 Mother Hypertensive disorder [id number] Not available 01/25/2023 08:05:07 Father Malignant neoplasm of lung [email or web address] Not available 03/08 09:01:28 Father Family history of malignant neoplasm [email or web address] Not available 03/08 09:01:28 Medical History Condition [...] 50 mcg/0.25mL dose 01/15/2021 completed Not Available [facility] 3 08:13:17 COVID-19, mRNA, LNP-S, PF, 100 mcg/0.5mL dose or 50 mcg/0.25mL dose 12/17/2020 completed Not Available [facility] 3 08:13:18 Past Encounters Encounter ID Performer Location Encounter Start Date Encounter Closed Date Diagnosis/Indication Diagnosis SNOMED-CT Code Diagnosis ICD10 Code Diagnosis IMO Codes Diagnosis Note [id number] [facility]_M IGRATION_ DEFAULT_1 _1 , 03/03/2021 00:00:00 03/03/2021 11:59:44 [id number] Mj Mckinney MD [facility] [address] [place] [address] 12/01/2021 00:00:00 12/01/2021 16:18:33 [id number] Mj Mckinney MD [facility] [address] [place] [address] 03/09/2022 00:00:00 03/09/2022 09:41:49 [id number] Mj Mckinney MD [facility] [address] [place] [address] 06/08/2022 00:00:00 06/08/2022 09:27:51 [id number] Mj Mckinney MD [facility] [address] [place] [address] 09/07/2022 00:00:00 09/07/2022 09:30:00 [id number] Mj Mckinney MD [facility] [address] [place] [address] 12/07/2022 00:00:00 12/07/2022 09:08:52 [id number] Mj Mckinney MD [facility] [address] [place] [address] 03/08/2023 08:59:05 03/08/2023 09:19:32 Bilateral osteoarthritis of knees [id number] 52746 M17.0 Health Concerns Section Related Observation LastModified by Organization Detai ls LastModified Time None Recorded Concern Status LastModified by Organization Details LastModified Time None Recorded Advance Directives Directive None Recorded Payers Insurance Date Sequence Insurance Name Policy Number Policy Shelley Covered Member ID Shelley Member ID Guarantor Name 03/08/2023 1 [place] Essence Sommers [id number] Essence Sommers 03/08/2023 2 A[employer] (MEDICARE SUPPLEMENT) Essence Sommers [id number] Essence Sommers OBGyn Episode No OBEpisode recorded.
[2025-09-17 15:05] LABS: Hematocrit 39.1 % (37.0-47.0); Hemoglobin 12.3 g/dL (12.0-15.0); Immature Granulocyte Percent A 0.1 % (0-0.5); Lymphocytes Absolute Auto 2.81 K/mm3 (0.9-3.2); Mean Corpuscular HGB Conc 31.5 g/dl (32-36); Mean Corpuscular Hemoglobin 29.4 pg (26-34); Mean Corpuscular Volume 93.3 fl (80-100); Nucleated Red Blood Cells Absolute Auto 0.000 K/mm3 (0.0-0.012); Nucleated Red Blood Cells Perc 0.0 % (0.0-0.2); Platelet Count Result 356 k/mm3 (150-375); Red Blood Count 4.19 M/mm3 (4.2-5.4); White Blood Count 6.7 K/mm3 (4.5-10.0)
[2025-09-17 15:52] LABS: Alanine Aminotransferase 26 U/L (6-35); Albumin Level 4.5 g/dL (3.5-5.1); Alkaline Phosphatase 72 U/L (38-126); Anion Gap 11 mmol/L (4-12); Aspartate Amino Transferase 38 U/L (14-36); Bilirubin,Total 0.5 mg/dL (0.2-1.3); Blood Urea Nitrogen 23 mg/dL (7-17); Calcium 9.6 mg/dL (8.4-10.2); Carbon Dioxide 31 mmol/L (22-30); Chloride 98 mmol/L (98-107); Cholesterol 185 mg/dL (0-200); Estimated Glomerular Filt Rate 58; Glucose 86 mg/dL (65-110); HDL Direct 38 mg/dL; Potassium 4.2 mmol/L (3.4-5.0); Sodium 140 mmol/L (137-145); Total Protein 8.4 g/dL (6.3-8.2); Triglycerides 318 mg/dL (<150)
[2025-09-17 16:53] LABS: Vitamin B12 322.0 pg/mL (239-931)
[2025-09-17 17:45] LABS: Thyroid Stimulating Hormone Reflex 7.230 uIU/mL (0.465-4.68)
[2025-09-17 18:24] LABS: Hemoglobin A1C 5.5 % (<5.7)
[2025-09-17 18:44] LABS: Free T4 Free Thyroxine Reflex 1.05 ng/dL (0.78-2.19)
[2025-09-17 19:43] LABS: Total Triiodothyronine (T3) 1.27 NG/ML (0.82-1.58)
== END 2025-09-17 08:24 | disposition home or self-care (01) ==
LOC: ANHGOSHLAB 08:24
PROVIDERS: PCP Family Medicine; Visit Provider Family Medicine
DX: R73.9 Hyperglycemia, unspecified (principal); E53.8 Deficiency of other specified B group vitamins; E55.9 Vitamin D deficiency, unspecified; I10 Essential (primary) hypertension; E78.5 Hyperlipidemia, unspecified
CPT/HCPCS: 36415; 80053; 80061; 82306; 82607; 83036; 84439; 84443; 84480; 85025